=== PATIENT | female | born 1940 | race Caucasian/White ===

== ENCOUNTER 2016-10-08 14:48 | Inpatient (IN) ==
[2016-10-08] MEDS ORDERED: 0.9 % Sodium Chloride 500 ML IVC ONE ×2 (15:16→17:18)
--- NOTE | 2016-10-08 15:25 | Emergency Department Note ---
Disposition Clinical Impression: Small bowel perforation Disposition: Admitted As Inpatient Referrals: Nica Pryor, HIDE GRADER [Primary Care Provider] - Forms: Work/School Release, ED Satisfaction Letter Abdominal Pain HPI - General Chief Complaint: ED Abdominal Pain Stated Complaint: abdominal pain Time Seen by Provider: 10/08/16 15:06 Source: EMS Mode of arrival: EMS Nursing Notes Reviewed: Yes Vital Signs Reviewed: Yes - History of Present Illness Pt Subjective Complaint: abdominal pain Onset (ago): day(s) (1) Consistency: intermittent Location: L flank Pain Scale: 10 Quality: aching Radiation: none Migration to: no migration Improves with: nothing Worsens with: nothing Associated symptoms: Reports: hematuria Treatments prior to arrival: other (removed ramon catheter) - Related Data Allergies Allergy/AdvReac Type Severity Reaction Status Date / Time cephalexin [From Keflex] Allergy Hives Verified 10/08/16 14:56 sulfamethoxazole Allergy Hives Verified 10/08/16 14:56 [From Septra] trimethoprim [From Septra] Allergy Hives Verified 10/08/16 14:56 All systems ED: reviewed and negative except as stated. Constitutional: Denies: fever, chills, weakness Eyes: Denies: eye pain Cardiovascular: Denies: dyspnea on exertion Gastrointestinal: Reports: nausea, other (BM last night). Denies: diarrhea Abdominal Pain PMH - Past Medical History Medical history: Reports: arthritis, diabetes, hyperlipidemia, hypertension, renal disease, thyroid disease Female Surgical History: Reports: cholecystectomy Psychiatric history: Reports: no psych history - Social History Smoking status: Current every day smoker Alcohol use: Reports: none Drug use: Reports: none Physical Exam - General Limitations: no limitations General appearance: alert, other (uncomfortable) - Eye Eye exam: Present: normal appearance, PERRL, EOMI - ENT ENT exam: normal exam, normal oropharynx, mucous membranes moist - Neck Neck exam: Present: normal inspection, full ROM, trachea midline - Chest Chest inspection: Present: normal inspection, symmetric chest wall rise - Respiratory Respiratory exam: Present: normal lung sounds bilaterally - Cardiovascular Cardiovascular exam: Present: regular rate, normal rhythm, normal heart sounds - Abdominal Exam Abdominal exam: Present: distention, guarding Abdominal tenderness: Present: diffuse, severe - Neurological Exam Neurological exam: Present: alert, oriented X3 - Psychiatric Psychiatric exam: Present: normal affect, normal mood - Skin Skin exam: Present: warm, dry, intact, normal color Course Vital Signs Temperature 98.8 F 10/08/16 14:49 Pulse Rate 91 10/08/16 14:49 Respiratory Rate 16 10/08/16 14:49 Blood Pressure 151/65 10/08/16 14:49 O2 Sat by Pulse Oximetry 94 L 10/08/16 14:49 Temperature 98.8 F 10/08/16 14:49 Pulse Rate 86 10/08/16 16:34 Respiratory Rate 18 10/08/16 16:34 Blood Pressure 156/50 10/08/16 16:34 O2 Sat by Pulse Oximetry 98 10/08/16 16:34 Oxygen Delivery Oxygen Delivery Nasal Cannula Abdominal Pain - Differential Diagnosis Differential Diagnosis: Likely: abdominal pain non-specific, acute appendicitis , calculus of kidney, constipation, diverticulitis, gastroenteritis, pancreatitis, small bowel obstruction - Medical Records Medical records reviewed: Yes I reviewed the patient's medical records. - Lab Data Lab results reviewed: Yes I reviewed the patient's lab results. Result diagrams: 10/08/16 15:54 10/08/16 15:54 Lab Results 10/08/16 10/08/16 10/08/16 Range/Units 15:16 15:54 15:54 WBC 18.1 H (4.3-11.1) K/mcL RBC 3.51 L (3.82-4.97) M/mcL Hgb 10.1 L (11.5-15.4) g/dL Hct 32.1 L (35.3-44.9) % MCV 91.5 (83.0-100.0) fL MCH 28.8 (28.0-33.3) pg MCHC 31.5 L (31.6-35.5) g/dL RDW 14.6 H (11.5-14.5) % Plt Count 233 (140-400) K/mcL MPV 12.0 (9.4-12.4) fL Immature Gran % 0.7 (0-4) % Seg Neutrophils % 87.4 % Lymphocytes % 8.3 % Monocytes % 3.2 % Eosinophils % 0.2 % Basophils % 0.2 % Neutrophils # 15.8 H (1.6-8.9) K/mcL Lymphocytes # 1.5 (0.6-4.6) K/mcL Monocytes # 0.6 (0.0-1.3) K/mcL Eosinophils # 0.0 (0.0-0.6) K/mcL Basophils # 0.0 (0.0-0.2) K/mcL Sodium 136 (136-145) mEq/L Potassium 4.7 H (3.5-4.5) mEq/L Chloride 100 (98-109) mEq/L Carbon Dioxide 26 (19-29) mEq/L BUN 42 H (7-20) mg/dL Creatinine 1.13 H (0.57-1.11) mg/dL Est GFR ( Amer) 57 L (> 60) Est GFR (Non-Af Amer) 47 L (> 60) BUN/Creatinine Ratio 37 H (6-26) Glucose 171 H (70-99) mg/dL Calculated Osmolality 297 (280-300) Lactic Acid (0.5-2.2) mmol/L Calcium 10.3 (8.6-10.8) mg/dL Total Bilirubin 0.2 (0.2-1.2) mg/dL Direct Bilirubin 0.2 (0.0-0.5) mg/dL Indirect Bilirubin 0.0 (0.0-1.2) mg/dL AST 15 (5-34) Units/L ALT 14 (0-55) Units/L Alkaline Phosphatase 57 (38-126) Units/L Serum Total Protein 7.5 (6.0-8.3) g/dL Albumin 2.5 L (3.5-5.0) g/dL Globulin 5.0 H (2.4-3.5) g/dL Albumin/Globulin Ratio 0.5 L (1.1-2.2) Amylase 77 (25-125) Units/L Lipase 35 (8-78) Units/L Urine Color Yellow (Yellow) Urine Clarity Cloudy A (Clear) Urine pH 5.0 (5.0-8.0) pH Units Ur Specific [place] 1.019 (1.010-1.025) Urine Protein 30 H (Neg-Trace) mg/dL Urine Glucose (UA) Normal (Normal) mg/dL Urine Ketones Negative (Negative) mg/dL Urine Blood Large H (Negative) Urine Nitrite Positive A (Negative) Urine Bilirubin Negative (Negative) Urine Urobilinogen Normal (Normal) mg/dL Ur Leukocyte Esterase Moderate H (Negative) Urine Microscopic RBC 50-100 H (0-3) per hpf Urine Microscopic WBC 50-100 H (0-3) per hpf Ur Squamous Epith Cells Moderate H (None-Few) per lpf Urine Bacteria Moderate H (None-Few) per hpf Hyaline Casts None Seen (None-Few) per lpf Ur Culture Indicated? YES A (NO) Specimen Rejected 10/08/16 10/08/16 Range/Units 15:54 17:01 WBC (4.3-11.1) K/mcL RBC (3.82-4.97) M/mcL Hgb (11.5-15.4) g/dL Hct (35.3-44.9) % MCV (83.0-100.0) fL MCH (28.0-33.3) pg MCHC (31.6-35.5) g/dL RDW (11.5-14.5) % Plt Count (140-400) K/mcL MPV (9.4-12.4) fL Immature Gran % (0-4) % Seg Neutrophils % % Lymphocytes % % Monocytes % % Eosinophils % % Basophils % % Neutrophils # (1.6-8.9) K/mcL Lymphocytes # (0.6-4.6) K/mcL Monocytes # (0.0-1.3) K/mcL Eosinophils # (0.0-0.6) K/mcL Basophils # (0.0-0.2) K/mcL Sodium (136-145) mEq/L Potassium (3.5-4.5) mEq/L Chloride (98-109) mEq/L Carbon Dioxide (19-29) mEq/L BUN (7-20) mg/dL Creatinine (0.57-1.11) mg/dL Est GFR ( Amer) (> 60) Est GFR (Non-Af Amer) (> 60) BUN/Creatinine Ratio (6-26) Glucose (70-99) mg/dL Calculated Osmolality (280-300) Lactic Acid 1.6 (0.5-2.2) mmol/L Calcium (8.6-10.8) mg/dL Total Bilirubin (0.2-1.2) mg/dL Direct Bilirubin (0.0-0.5) mg/dL Indirect Bilirubin (0.0-1.2) mg/dL AST (5-34) Units/L ALT (0-55) Units/L Alkaline Phosphatase (38-126) Units/L Serum Total Protein (6.0-8.3) g/dL Albumin (3.5-5.0) g/dL Globulin (2.4-3.5) g/dL Albumin/Globulin Ratio (1.1-2.2) Amylase (25-125) Units/L Lipase (8-78) Units/L Urine Color (Yellow) Urine Clarity (Clear) Urine pH (5.0-8.0) pH Units Ur Specific [place] (1.010-1.025) Urine Protein (Neg-Trace) mg/dL Urine Glucose (UA) (Normal) mg/dL Urine Ketones (Negative) mg/dL Urine Blood (Negative) Urine Nitrite (Negative) Urine Bilirubin (Negative) Urine Urobilinogen (Normal) mg/dL Ur Leukocyte Esterase (Negative) Urine Microscopic RBC (0-3) per hpf Urine Microscopic WBC (0-3) per hpf Ur Squamous Epith Cells (None-Few) per lpf Urine Bacteria (None-Few) per hpf Hyaline Casts (None-Few) per lpf Ur Culture Indicated? (NO) Specimen Rejected Clotted - Radiology Data Radiology results reviewed: Yes I reviewed the patient's radiology results. Critical Care Time Critical Care Time: Yes Total Critical Care Time: 40 Attestation: Critical care performed: Time is exclusive of separately billable procedures. Time includes: direct patient care, patient reassessment, coordination of patient care, interpretation of data (laboratory data, radiology data, and respiratory data), review of patient's medical records, medical consultation and documentation of patient care. Procedures included in critical care time: Procedures excluded from critical care time:
[2016-10-08 15:28] LABS: Bilirubin,Urine Negative (Negative); Blood,Urine Large (Negative); Clarity,Urine Cloudy (Clear); Glucose,Urine (UA) Normal (Normal); Ketones,Urine Negative (Negative); Leukocyte Esterase,Urine Moderate (Negative); Nitrite,Urine Positive (Negative); Protein,Urine 30 mg/dL (Neg-Trace); Specific Gravity,Urine 1.019 (1.010-1.025); Urobilinogen,Urine Normal (Normal)
[2016-10-08 15:29] LABS: Bacteria,Urine Moderate per hpf (None-Few); Hyaline Casts,Urine None Seen per lpf (None-Few); RBC,Urine 50-100 per hpf (0-3); Squamous Epithelial Cell,Urine Moderate per lpf (None-Few); WBC,Urine 50-100 per hpf (0-3)
[2016-10-08 15:32] LABS: Color,Urine Yellow (Yellow)
[2016-10-08 16:16] LABS: Basophils % 0.2 %; Eosinophils % 0.2 %; Hematocrit 32.1 % (35.3-44.9); Hemoglobin 10.1 g/dL (11.5-15.4); Immature Granulocytes % 0.7 % (0-4); Lymphocytes # 1.5 K/mcL (0.6-4.6); Lymphocytes % 8.3 %; Mean Corpuscular HGB Conc 31.5 g/dL (31.6-35.5); Mean Corpuscular Hemoglobin 28.8 pg (28.0-33.3); Mean Corpuscular Volume 91.5 fL (83.0-100.0); Monocytes # 0.6 K/mcL (0.0-1.3); Monocytes % 3.2 %; Neutrophils # 15.8 K/mcL (1.6-8.9); Platelet Count 233 K/mcL (140-400); Red Blood Count 3.51 M/mcL (3.82-4.97); Red Cell Distribution Width 14.6 % (11.5-14.5); Segmented Neutrophils % 87.4 %
[2016-10-08] MEDS ORDERED: *HR* Morphine 2 MG/ML SYRINGE IV ONE (16:19)
[2016-10-08] MEDS ORDERED: Ondansetron 4 MG/2 ML VIAL IV ONE (16:19)
[2016-10-08] MEDS ORDERED: Piperacillin/Tazobactam 3.375 GM in D5% in Water (Mini-Bag+) 100 ML IVPB ONE (16:19)
[2016-10-08 16:29] LABS: Albumin 2.5 g/dL (3.5-5.0); Albumin/Globulin Ratio 0.5 (1.1-2.2); Bilirubin,Direct 0.2 mg/dL (0.0-0.5); Bilirubin,Total 0.2 mg/dL (0.2-1.2); Calcium 10.3 mg/dL (8.6-10.8); Potassium 4.7 mEq/L (3.5-4.5); Total Protein 7.5 g/dL (6.0-8.3)
--- NOTE | 2016-10-08 17:25 | General Surg History&Physical ---
Date of Encounter: 10/08/16 Time of Encounter: 17:25 Assessment and Plan (1) Free intraperitoneal air Current Visit: Yes Status: Acute The assessment and plan as outlined above was discussed with the patient and/or family members who expressed understanding and agreement. All questions were answered. 1. Free air discussed with patient CT results and imaging, she likely either has a small bowel perforation or a perforated colon. Discussed exploratory laparotomy possible ostomy with patient, risks and benefits of surgery including and she wishes to proceed. I called and spoke with patients son, Eduardo, regarding her current condition and our surgical plans. Discussed the possibility of remaining intubated post-operatively and going to ICU. npo ivf pain control ramon already in place gi/dvt prophylaxis (2) Perforated viscus Current Visit: Yes Status: Acute The assessment and plan as outlined above was discussed with the patient and/or family members who expressed understanding and agreement. All questions were answered. (3) HTN (hypertension) Current Visit: Yes Status: Acute The assessment and plan as outlined above was discussed with the patient and/or family members who expressed understanding and agreement. All questions were answered. holding home medication, will see what stability is like postop and treat accordingly Qualifiers: Hypertension type: essential hypertension Qualified Code(s): I10 - Essential (primary) hypertension (4) Diabetes Current Visit: Yes Status: Acute The assessment and plan as outlined above was discussed with the patient and/or family members who expressed understanding and agreement. All questions were answered. 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 All questions were answered. will start IV synthroid tomorrow Qualifiers: Hypothyroidism type: unspecified Qualified Code(s): E03.9 - Hypothyroidism , unspecified (6) Ventral hernia Current Visit: Yes Status: Acute The assessment and plan as outlined above was discussed with the patient and/or family members who expressed understanding and agreement. All questions were answered. patient with a large 8 x 5 cm ventral hernia, will see if we can primarily close and wound vac during surgery Qualifiers: Obstruction and gangrene presence: without obstruction or gangrene Qualified Code(s): K43.9 - Ventral hernia without obstruction or gangrene (7) Leukocytosis Current Visit: Yes Status: Acute The assessment and plan as outlined above was discussed with the patient and/or family members who expressed understanding and agreement. All questions were answered. zosyn received in ER, will continue ab Qualifiers: Leukocytosis type: unspecified Qualified Code(s): D72.829 - Elevated white blood cell count, unspecified History of Present Illness Chief complaint: abdominal pain HPI: Ms. Covarrubias is a 76 year old female who comes in today with complaints of abdominal pain less than 24 hours in duration. The pain began last night in the left lower quadrant and she described it as a stabbing pain. Since then the pain has located primarily in her mid abdomen and left upper quadrant on the left side. She denies any nausea or vomiting. She has had no recent fevers chills or night sweats. Her last bowel movement was last night and states she has not passed gas since then. She feels very distended. She denies any previous episodes of diverticulitis. She has never had a colonoscopy. She denies any family history colon cancer. She states her mother did have ovarian cancer. She is currently at a rehabilitation facility due to an inability to ambulate that manifested within the last few weeks according to her. Past Med Surg Social Fam HX - Past Medical History Source: patient Medical history: arthritis, diabetes, hyperlipidemia, hypertension, renal disease, thyroid disease Psychiatric history: no psych history - Past Surgical History Surgical History: cholecystectomy (open) - Social History Smoking Status: Current every day smoker Alcohol use: none Drug use: none Medications and Allergies Ascorbate Calcium [Vitamin C] 500 mg PO DAILY 10/08/16 [History] Chlorzoxazone 500 mg PO TID 10/08/16 [History] Doxazosin [Cardura] 8 mg PO DAILY 10/08/16 [History] Folic Acid/Vit Bcomp,C [Dialyvite Tablet] 1 tab PO DAILY 10/08/16 [History] Gabapentin [Neurontin] 600 mg PO TID 10/08/16 [History] Glucosamn/Condroitn/C/Mn/[place] [Cvs Glucosamine Chondroit Cplt] 1 tab PO DAILY 10/08/16 [History] HYDROcodone/Acet 5/325 mg [[place] 5-325 mg] 1 tab PO Q4H PRN 10/08/16 [History] Levothyroxine [Synthroid] 100 mcg PO DAILY 10/08/16 [History] Lisinopril-HCTZ 20-12.5 [Prinzide 20-12.5] 1 tab PO DAILY 10/08/16 [History] Lysine [l-Lysine] 1,000 mg PO DAILY 10/08/16 [History] Meloxicam [Mobic] 7.5 mg PO BID 10/08/16 [History] Metformin [Glucophage] 500 mg PO BID 10/08/16 [History] Nystatin POWDER [Nystop] 1 appl TP BID 10/08/16 [History] Silver Sulfadiazine Cream [Silvadene] 1 appl TP AD 10/08/16 [History] Allergies cephalexin [From Keflex] Allergy (Verified 10/08/16 14:56) Hives sulfamethoxazole [From Septra] Allergy (Verified 10/08/16 14:56) Hives trimethoprim [From Septra] Allergy (Verified 10/08/16 14:56) Hives Review of Systems All systems PM: reviewed and no additional remarkable complaints except as stated All systems PM: A 10-system review of systems was performed and is negative for pertinent findings except as documented above in the HPI. General Surgery Exam Initial Vital Signs Temp Pulse Resp BP Pulse Ox 98.8 F 91 16 151/65 94 L 10/08/16 14:49 10/08/16 14:49 10/08/16 14:49 10/08/16 14:49 10/08/16 14:49 - General physical appearance well developed, well nourished, moderate distress, obese - Eyes PERRL, normal ocular movement - ENT normal mucosa, normocephalic - Neck trachea midline - Respiratory other (increased WOB, clear bilaterally) - Cardiovascular Cardiovascular exam: Present: RRR, murmurs - Abdomen Abdomen general surgery: Present: tympanic, distended, tender, surgical scars. Absent: bowel sounds present, guarding, rebound Abdominal Tenderness: Present: LUQ, LLQ - Integumentary Integumentary general surgery: Present: warm and dry, no abnormal pigmentation - Neurologic Present: CN 2-12 grossly intact - Musculoskeletal Present: normal posture - Psychiatric Psychiatric general surgery: Present: A&Ox3, speech is normal Results - Labs 10/08/16 15:54 10/08/16 15:54 Short CBC 10/08/16 Range/Units 15:54 WBC 18.1 H (4.3-11.1) K/mcL Hgb 10.1 L (11.5-15.4) g/dL Hct 32.1 L (35.3-44.9) % Plt Count 233 (140-400) K/mcL Neutrophils # 15.8 H (1.6-8.9) K/mcL BMP 10/08/16 Range/Units 15:54 Sodium 136 (136-145) mEq/L Potassium 4.7 H (3.5-4.5) mEq/L Chloride 100 (98-109) mEq/L Carbon Dioxide 26 (19-29) mEq/L BUN 42 H (7-20) mg/dL Creatinine 1.13 H (0.57-1.11) mg/dL Glucose 171 H (70-99) mg/dL Calcium 10.3 (8.6-10.8) mg/dL Liver Function 10/08/16 Range/Units 15:54 Total Bilirubin 0.2 (0.2-1.2) mg/dL Direct Bilirubin 0.2 (0.0-0.5) mg/dL AST 15 (5-34) Units/L ALT 14 (0-55) Units/L Alkaline Phosphatase 57 (38-126) Units/L Albumin 2.5 L (3.5-5.0) g/dL Urine 10/08/16 Range/Units 15:16 Urine Color Yellow (Yellow) Urine Clarity Cloudy A (Clear) Urine pH 5.0 (5.0-8.0) pH Units Ur Specific [place] 1.019 (1.010-1.025) Urine Protein 30 H (Neg-Trace) mg/dL Urine Glucose (UA) Normal (Normal) mg/dL Vital Signs Temp Pulse Resp BP Pulse Ox 10/08/16 16:34 86 18 156/50 98 10/08/16 15:53 86 20 143/86 93 L 10/08/16 14:49 98.8 F 91 16 151/65 94 L Intake and Output 10/08/16 10/08/16 10/08/16 07:59 15:59 23:59 Intake Total 500 / 500 Balance 500 / 500 Intake: IV Fluids 500 / 500 0.9 % Sodium Chloride 500 500 / 500 ML @ 3750 mls/hr IVC . Q8M ONE Rx#:[id number] Other: Weight 101.605 kg Patient Weight 10/08/16 23:59 Weight 101.605 kg - Imaging CT scan - abdomen: report reviewed, image reviewed CT scan - pelvis: report reviewed, image reviewed
--- NOTE | 2016-10-08 17:28 | General Surg History&Physical ---
Date of Encounter: 10/08/16 Time of Encounter: 17:10 History of Present Illness Chief complaint: abdominal pain HPI: Ms. Covarrubias is a 76 year old female with PMH of diabetes, hypothyroidism, and hypertension presented to the emergency department for abdominal pain that started last night. She reports that currently she is living in a long-term to try to strengthen her legs after having a previous injury years ago. She states that her pain started in the left lower quadrant and was stabbing in nature. The pain now spread to being epigastric as well.She denies nausea, vomiting, fevers, chills, and night sweats. Her last bowel movement was last night, but she denies passing any gas since then. She reports feeling as if her abdomen is distended. She denies history of diverticulitis, but states she has never had a colonoscopy. She denies family history of colon cancer. Past Med Surg Social Fam HX - Past Medical History Medical history: arthritis, diabetes, hyperlipidemia, hypertension, renal disease, thyroid disease Psychiatric history: no psych history - Past Surgical History Surgical History: cholecystectomy (1974) - Social History Smoking Status: Current every day smoker Alcohol use: none Drug use: none - Family History Maternal Hx Family Cancer: Yes (ovarian and breast) Medications and Allergies Allergies cephalexin [From Keflex] Allergy (Verified 10/08/16 14:56) Hives sulfamethoxazole [From Septra] Allergy (Verified 10/08/16 14:56) Hives trimethoprim [From Septra] Allergy (Verified 10/08/16 14:56) Hives Review of Systems All systems PM: A 10-system review of systems was performed and is negative for pertinent findings except as documented above in the HPI. - Constitutional no chills, no fever(s), no night sweats - Cardiovascular no dyspnea on exertion - Gastrointestinal abdominal pain, bloating, no diarrhea, no melena, no nausea, no vomiting - Neurological numbness (hands), paresthesias (hands), weakness (lower extremities) General Surgery Exam Initial Vital Signs Temp Pulse Resp BP Pulse Ox 98.8 F 91 16 151/65 94 L 10/08/16 14:49 10/08/16 14:49 10/08/16 14:49 10/08/16 14:49 10/08/16 14:49 - General physical appearance well developed, well nourished, other (mild distress) - Eyes normal ocular movement - ENT normal mucosa, normocephalic Results - Labs 10/08/16 15:54 10/08/16 15:54 Abnormal lab results WBC 18.1 K/mcL (4.3-11.1) H 10/08/16 15:54 RBC 3.51 M/mcL (3.82-4.97) L 10/08/16 15:54 Hgb 10.1 g/dL (11.5-15.4) L 10/08/16 15:54 Hct 32.1 % (35.3-44.9) L 10/08/16 15:54 MCHC 31.5 g/dL (31.6-35.5) L 10/08/16 15:54 RDW 14.6 % (11.5-14.5) H 10/08/16 15:54 Neutrophils # 15.8 K/mcL (1.6-8.9) H 10/08/16 15:54 Potassium 4.7 mEq/L (3.5-4.5) H 10/08/16 15:54 BUN 42 mg/dL (7-20) H 10/08/16 15:54 Creatinine 1.13 mg/dL (0.57-1.11) H 10/08/16 15:54 Est GFR ( Amer) 57 (> 60) L 10/08/16 15:54 Est GFR (Non-Af Amer) 47 (> 60) L 10/08/16 15:54 BUN/Creatinine Ratio 37 (6-26) H 10/08/16 15:54 Glucose 171 mg/dL (70-99) H 10/08/16 15:54 Albumin 2.5 g/dL (3.5-5.0) L 10/08/16 15:54 Globulin 5.0 g/dL (2.4-3.5) H 10/08/16 15:54 Albumin/Globulin Ratio 0.5 (1.1-2.2) L 10/08/16 15:54 Urine Clarity Cloudy (Clear) A 10/08/16 15:16 Urine Protein 30 mg/dL (Neg-Trace) H 10/08/16 15:16 Urine Blood Large (Negative) H 10/08/16 15:16 Urine Nitrite Positive (Negative) A 10/08/16 15:16 Ur Leukocyte Esterase Moderate (Negative) H 10/08/16 15:16 Urine Microscopic RBC 50-100 per hpf (0-3) H 10/08/16 15:16 Urine Microscopic WBC 50-100 per hpf (0-3) H 10/08/16 15:16 Ur Squamous Epith Cells Moderate per lpf (None-Few) H 10/08/16 15:16 Urine Bacteria Moderate per hpf (None-Few) H 10/08/16 15:16 Ur Culture Indicated? YES (NO) A 10/08/16 15:16 Diabetes panel 10/08/16 Range/Units 15:54 Sodium 136 (136-145) mEq/L Potassium 4.7 H (3.5-4.5) mEq/L Chloride 100 (98-109) mEq/L Carbon Dioxide 26 (19-29) mEq/L BUN 42 H (7-20) mg/dL Creatinine 1.13 H (0.57-1.11) mg/dL Glucose 171 H (70-99) mg/dL Calcium 10.3 (8.6-10.8) mg/dL AST 15 (5-34) Units/L ALT 14 (0-55) Units/L Alkaline Phosphatase 57 (38-126) Units/L Albumin 2.5 L (3.5-5.0) g/dL Calcium panel 10/08/16 Range/Units 15:54 Calcium 10.3 (8.6-10.8) mg/dL Albumin 2.5 L (3.5-5.0) g/dL Pituitary panel 10/08/16 Range/Units 15:54 Sodium 136 (136-145) mEq/L Potassium 4.7 H (3.5-4.5) mEq/L Chloride 100 (98-109) mEq/L Carbon Dioxide 26 (19-29) mEq/L BUN 42 H (7-20) mg/dL Creatinine 1.13 H (0.57-1.11) mg/dL Glucose 171 H (70-99) mg/dL Calcium 10.3 (8.6-10.8) mg/dL Adrenal panel 10/08/16 Range/Units 15:54 Sodium 136 (136-145) mEq/L Potassium 4.7 H (3.5-4.5) mEq/L Chloride 100 (98-109) mEq/L Carbon Dioxide 26 (19-29) mEq/L BUN 42 H (7-20) mg/dL Creatinine 1.13 H (0.57-1.11) mg/dL Glucose 171 H (70-99) mg/dL Calcium 10.3 (8.6-10.8) mg/dL Total Bilirubin 0.2 (0.2-1.2) mg/dL AST 15 (5-34) Units/L ALT 14 (0-55) Units/L Alkaline Phosphatase 57 (38-126) Units/L Albumin 2.5 L (3.5-5.0) g/dL All other labs normal.
[2016-10-08 17:47] LABS: INR 1.3; Prothrombin Time 13.6 Seconds (9.4-12.1)
[2016-10-08 17:50] LABS: Activated Partial Thrombo Time 29.2 Seconds (26.0-36.0)
--- NOTE | 2016-10-08 17:57 | Anesthesia Evaluation PreOp ---
Date of Encounter: 10/08/16 Time of Encounter: 18:00 - Past History Planned Operation: Exploratory Lap possible Ostomy Cardiac History: HTN, Hyperlipidemia Pulmonary History: Denies Any Significant HX LEGAL RECRUITER History: Denies Any Significant HX Other Medical History: Diabetes Type II, Thyroid, Other (Morbid Obesity) Anesthesia History: No Prior Anesthetic Complications Alcohol Use: none Drug use: none Medications and Allergies Ascorbate Calcium [Vitamin C] 500 mg PO DAILY 10/08/16 [History] Chlorzoxazone 500 mg PO TID 10/08/16 [History] Doxazosin [Cardura] 8 mg PO DAILY 10/08/16 [History] Folic Acid/Vit Bcomp,C [Dialyvite Tablet] 1 tab PO DAILY 10/08/16 [History] Gabapentin [Neurontin] 600 mg PO TID 10/08/16 [History] Glucosamn/[place]roitn/C/Mn/[place] [Cvs Glucosamine Chondroit Cplt] 1 tab PO DAILY 10/08/16 [History] HYDROcodone/Acet 5/325 mg [Enders 5-325 mg] 1 tab PO Q4H PRN 10/08/16 [History] Levothyroxine [Synthroid] 100 mcg PO DAILY 10/08/16 [History] Lisinopril-HCTZ 20-12.5 [Prinzide 20-12.5] 1 tab PO DAILY 10/08/16 [History] Lysine [l-Lysine] 1,000 mg PO DAILY 10/08/16 [History] Meloxicam [Mobic] 7.5 mg PO BID 10/08/16 [History] Metformin [Glucophage] 500 mg PO BID 10/08/16 [History] Nystatin POWDER [Nystop] 1 appl TP BID 10/08/16 [History] Silver Sulfadiazine Cream [Silvadene] 1 appl TP AD 10/08/16 [History] Allergies cephalexin [From Keflex] Allergy (Verified 10/08/16 14:56) Hives sulfamethoxazole [From Septra] Allergy (Verified 10/08/16 14:56) Hives trimethoprim [From Septra] Allergy (Verified 10/08/16 14:56) Hives - Meds/Allergy Pre-op Review Medications Reviewed: Yes Allergies Reviewed: Yes Beta Blockers on Current Med List: No Anesthesia Results - Labs 10/08/16 15:54 10/08/16 15:54 - Imaging EKG: pending Anesthesia Exam O2 Sat Height 1.57 m Weight 101.605 kg O2 Sat by Pulse Oximetry 95 O2 Sat by Pulse Oximetry 98 O2 Sat by Pulse Oximetry 93 O2 Sat by Pulse Oximetry 94 Vital Signs Temp Pulse Resp BP Pulse Ox 98.8 F 91 16 151/65 94 L 10/08/16 14:49 10/08/16 14:49 10/08/16 14:49 10/08/16 14:49 10/08/16 14:49 Height: 5'2 Weight: 224 lbs NPO (# of Hours): MN Pain Scale: 6 - HEENT Pupil (Motor): Pupils equal, EOMI Mallampati: III Teeth: Missing Oral Opening: Less than or equal to 3 - LEGAL RECRUITER LOC: Oriented LEGAL RECRUITER Motor: Normal RUE, Normal LUE, Normal RLE, Normal LLE, Normal Face LEGAL RECRUITER Sensory: Normal: RUE, LUE, RLE, LLE, Face - Cardiac Rhythm: Regular Murmur: None JVD: No Carotid Bruit: No - Pulmonary Breath Sounds: bilateral Clear Respiratory Effort: Symmetrical Anesthesia Assess/Plan ASA Score: 3 (MO HTN DM Hypothyroid) Modified Vic Scale for Level of Consciousness: Cooperative, oriented, and tranquil Anesthetic Plan: General Monitoring Plan: Standard Monitors Recovery Plan: PACU (Discussed GA, agrees to proceed)
[2016-10-08] MEDS ORDERED: *HR* FentaNYL (PF) 100 MCG/2 ML VIAL ONE (18:06)
[2016-10-08] MEDS ORDERED: *HR* Propofol 200 MG/20 ML VIAL IVP ONE (18:07)
[2016-10-08] MEDS ORDERED: *HR* Succinylcholine 200 MG/10 ML VIAL IVP ONE (18:07)
[2016-10-08] MEDS ORDERED: *HR* Rocuronium Bromide 50 MG/5 ML VIAL ONE ×2 (18:07→19:46)
[2016-10-08] MEDS ORDERED: Ondansetron 4 MG/2 ML VIAL ONE (18:07)
[2016-10-08] MEDS ORDERED: Lidocaine -MPF 2% 2 ML VIAL ONE (18:07)
[2016-10-08] MEDS ORDERED: *HR* Phenylephrine 10 MG/ML VIAL ONE (18:35)
[2016-10-08] MEDS ORDERED: Acetaminophen IV 1,000 MG/100 ML INFUS..BTL ONE (19:11)
[2016-10-08] MEDS ORDERED: Fluconazole 200 MG/100 ML 200 MG/100 ML BAG IVPB SCH (19:15)
[2016-10-08] MEDS ORDERED: Neostigmine Methylsulfate 3 MG/3 ML SYRINGE ONE (20:11)
[2016-10-08] MEDS ORDERED: *HR* HYDROmorphone 2 MG/ML SYRINGE ONE ×2 (20:20→20:21)
[2016-10-08] MEDS ORDERED: *HR* Midazolam HCl 2 MG/2 ML VIAL ONE (20:26)
--- NOTE | 2016-10-08 20:33 | Operative Note ---
Date of procedure: 10/08/16 Pre-op diagnosis: Free air Post-op diagnosis: other (gastric perforation, ventral hernia) Procedure: Exploratory laparotomy, gastric perforation wedge resection, ventral hernia repair, placement of wound vac Complications: none immediate Anesthesia: DEANA Surgeon: Piper Ware Surgical Scrub Technician Other: Efren Gonzalez Estimated blood loss (cc): 25 IV fluids (cc): 3,300 Urine output (cc): 400 Specimen: see op note Condition: stable Disposition: ICU Procedure in Detail: specimens: gastric wedge resection, omentum, aerobic and anaerobic specimens, epiploic nodules wound vac measurements: 26 cm L x 6 cm W x 4 cm D Procedure: She was brought into the operating suite and placed supine on the operating table. Sign in was performed and everyone was in agreement. Anesthesia was induced and patient was endotracheally intubated by anesthesia without incident. She had previously had a De La O catheter placed. Anesthesia placed a nasogastric tube. The abdomen was prepped and draped in the usual sterile fashion. Timeout was performed again everyone was in agreement. A midline incision through the skin into the subcutaneous tissue was made with a 15 blade. We entered the hernia sac with the Bovie. The midline fascia was opened proximally and distally with the Bovie. Omental adhesions to the anterior abdominal wall were taken down with Metzenbaum scissors and Bovie cautery. The small bowel was run from the ligament of Treitz down to the terminal ileum. Lysis of adhesions was accomplished with Metzenbaum scissors freeing up small bowel to small bowel adhesions. There was no obvious succus or fluid within the small bowel loops. The colon was run from the cecum to the transverse colon which was very redundant down to very redundant left colon and sigmoid into the pelvis the rectum was evaluated. There was no obvious inflammation. There was no obvious succus coming from anywhere. There was a small amount of purulent fluid within the pelvis. We then turned our attention to the stomach and there was obvious fibrinous material. The proximal omentum at the greater curvature of the stomach. The anterior stomach was evaluated and there was no obvious perforation. The duodenum was evaluated and there was no obvious anterior perforation. Opening the omentum just beneath the stomach we entered the lesser sac. There was a gastric perforation the posterior stomach wall at the greater curvature along with purulent fluid and gastric drainage. Approximately 2-3 cm distal this area was another area of stomach that appeared to be necrotic. Using the impact LigaSure we opened the omentum to the gastric wall proximally and distally to the gastric perforation. The NG tube was to be palpated in an appropriate position within the stomach and was pushed out of the way towards the lesser curvature. A TL 90 stapler was then placed across the greater omentum including the gastric perforation and this other area of necrosis. The gastric wedge resection then was cut away with a 10 blade. The stomach was then Lemberted over the staple line with 2-0 silk Lembert stitches. The upper abdomen was copiously irrigated with sterile saline. A stab incision in the right upper quadrant was made with a 15 blade and A 10 mm AP drain was placed through this incision with the drain placed beneath the gastric wedge resection staple line. The drain was sutured to the skin with a 2-0 silk stitch. The abdomen was then copiously irrigated with sterile saline. Trochars are placed on either side of the fascia for retraction. The hernia sac was then excised with the Bovie. The midline fascia was reapproximated with 2 separate #1 nylon looped PDS running stitches meeting in the middle. The subcutaneous tissue was irrigated with sterile saline. The umbilicus was tacked back down to the fascia with a 3-0 Vicryl [id number] stitch. The skin around the umbilicus was reapproximated subcutaneously with 3-0 Vicryl interrupted stitches and ignacio were used to close the skin around the umbilicus. A wound VAC was then applied to the wound using black foam, the VAC was set to 125 mmHg continuous suction. A drain sponge was used at the FREDY drain site. All lap and instrument counts were correct at the end of the case. The patient tolerated the procedure well. She was taken to the ICU in stable condition and intubated. The NG tube and De La O catheter remained at the end of the case.
[2016-10-08] MEDS ORDERED: D5% in Water 1,000 ML IV PRN (21:00)
[2016-10-08] MEDS ORDERED: Dextrose Gel 15 GM PO PRN ×2 (21:00)
[2016-10-08] MEDS ORDERED: Lacri-Lube 3.5 GM TUBE BOTH EYES PRN (21:00)
[2016-10-08] MEDS ORDERED: Ondansetron 4 MG/2 ML VIAL IVP PRN (21:00)
[2016-10-08] MEDS ORDERED: *HR* Dextrose 50 % in Water (Syg) 50 ML SYRINGE IVP PRN (21:00)
[2016-10-08] MEDS ORDERED: Naloxone 0.4 MG/ML INJ IVP PRN (21:00)
[2016-10-08] MEDS ORDERED: *HR* Metoprolol 5 MG/5 ML VIAL IVP PRN (21:00)
[2016-10-08] MEDS: FentaNYL (PF) 1,000 MCG in 0.9 % Sodium Chloride 80 ML IVC SCH (21:38)
[2016-10-08 21:54] LABS: ABG Base Excess -1.9 mEq/L (-2.0 to 3.0); ABG HCO3 24.6 mEQ/L (21-27); ABG Oxygen Saturation 96 % (95-98); ABG PCO2 50 mmHg (35-45); ABG PO2 91 mmHg (85-104); ABG TCO2 26.1 mEq/L (20-26); Blood Gas FiO2 50 %
[2016-10-08] MEDS: Ipratropium/Albuterol Neb 3 ML IH SCH (21:59)
[2016-10-08 22:01] LABS: Hemoglobin A1C 5.7 %
[2016-10-08] MEDS: Pantoprazole 40 MG VIAL IVP SCH (22:10)
[2016-10-08] MEDS: Chlorhexidine Rinse 15 ML MOUTHWASH MM SCH (22:10)
[2016-10-08] MEDS: 0.9 % Sodium Chloride 1,000 ML IVC SCH (22:11)
[2016-10-08] MEDS: Piperacillin/Tazobactam 3.375 GM in D5% in Water (Mini-Bag+) 100 ML IVPB SCH (23:55)
[2016-10-09] MEDS: Insulin LISPRO 300 UNITS/3 ML VIAL SQ SCH ×5 (00:13→23:26)
[2016-10-09] MEDS: Lacri-Lube 3.5 GM TUBE BOTH EYES SCH ×7 (00:25→23:27)
[2016-10-09] MEDS: Ipratropium/Albuterol Neb 3 ML IH SCH ×4 (03:57→22:22)
[2016-10-09 04:04] LABS: Basophils % 0.2 %; Eosinophils % 0.1 %; Hematocrit 27.3 % (35.3-44.9); Hemoglobin 8.5 g/dL (11.5-15.4); Lymphocytes # 1.4 K/mcL (0.6-4.6); Lymphocytes % 7.5 %; Mean Corpuscular HGB Conc 31.1 g/dL (31.6-35.5); Mean Corpuscular Hemoglobin 28.5 pg (28.0-33.3); Mean Corpuscular Volume 91.6 fL (83.0-100.0); Mean Platelet Volume 11.5 fL (9.4-12.4); Monocytes # 0.7 K/mcL (0.0-1.3); Monocytes % 3.6 %; Neutrophils # 16.4 K/mcL (1.6-8.9); Platelet Count 239 K/mcL (140-400); Red Blood Count 2.98 M/mcL (3.82-4.97); Red Cell Distribution Width 14.6 % (11.5-14.5); Segmented Neutrophils % 87.6 %
[2016-10-09 04:17] LABS: BUN/Creatinine Ratio 37 (6-26); Blood Urea Nitrogen 39 mg/dL (7-20); Carbon Dioxide 21 mEq/L (19-29); Chloride 107 mEq/L (98-109); Glucose 153 mg/dL (70-99); Magnesium 1.2 mg/dL (1.6-2.6); Osmolality,Calculated 292 (280-300); Phosphorous 3.8 mg/dL (2.3-4.7); Sodium 135 mEq/L (136-145); eGFR For African Americans > 60 (> 60); eGFR For Non-African Americans 51 (> 60)
[2016-10-09 04:21] LABS: Calcium 8.6 mg/dL (8.6-10.8)
[2016-10-09] MEDS: 0.9 % Sodium Chloride 1,000 ML IVC SCH ×3 (06:00→20:44)
[2016-10-09] MEDS: FentaNYL (PF) 1,000 MCG in 0.9 % Sodium Chloride 80 ML IVC SCH (06:20)
[2016-10-09 06:29] LABS: ABG Base Excess -0.4 mEq/L (-2.0 to 3.0); ABG HCO3 24.1 mEQ/L (21-27); ABG Oxygen Saturation 98 % (95-98); ABG PCO2 38 mmHg (35-45); ABG PH 7.41 pH Units (7.32-7.45); ABG PO2 110 mmHg (85-104); ABG TCO2 25.3 mEq/L (20-26); Blood Gas FiO2 50 %
[2016-10-09] MEDS: Piperacillin/Tazobactam 3.375 GM in D5% in Water (Mini-Bag+) 100 ML IVPB SCH ×3 (07:37→23:23)
[2016-10-09] MEDS: Pantoprazole 40 MG VIAL IVP SCH ×2 (08:10→20:42)
[2016-10-09] MEDS: Chlorhexidine Rinse 15 ML MOUTHWASH MM SCH ×2 (08:10→20:41)
[2016-10-09] MEDS: Levothyroxine Sodium 100 MCG VIAL IVP SCH (08:10)
[2016-10-09] MEDS ORDERED: Magnesium Sulfate 2 GM in D5% in Water 100 ML IVPB ONE (08:18)
--- NOTE | 2016-10-09 08:36 | General Surgery Progress Note ---
<Mike Gary - Last Filed: 10/09/16 08:34> Date of Encounter: 10/09/16 Time of Encounter: 07:30 - Assessment and Plan (1) Free intraperitoneal air Current Visit: Yes Status: Resolved Post op day #1 status post exploratory laparotomy, gastric perforation wedge resection, ventral hernia repair, and placement of wound vac. The patient remains intubated at this time and is oxygenating well. Nasogastric tube in place. Consider extubation today. Negative bowel sounds. Await for return of bowel function. NPO. Continue IV fluids. Continue GI and DVT prophylaxis. (2) Perforated viscus Current Visit: Yes Status: Resolved Gastric perforation the posterior stomach wall at the greater curvature along with purulent fluid and gastric drainage. Approximately 2-3 cm distal this area was another area of stomach that appeared to be necrotic. Post op day #1 status post exploratory laparotomy, gastric perforation wedge resection, ventral hernia repair, and placement of wound vac. (3) Diabetes Current Visit: Yes Status: Acute Hold home medications. Continue to monitor and control with low-dose SSI. Qualifiers: Diabetes mellitus type: type 2 Diabetes mellitus complication status: with unspecified complications Diabetes mellitus cooling pipe inspector insulin use: without cooling pipe inspector use Qualified Code(s): E11.8 - Type 2 diabetes mellitus with unspecified complications (4) HTN (hypertension) Current Visit: Yes Status: Acute Well controlled at this time. Continue to monitor. Qualifiers: Hypertension type: essential hypertension Qualified Code(s): I10 - Essential (primary) hypertension (5) Hypothyroid Current Visit: Yes Status: Acute Begin IV syntroid today. Qualifiers: Hypothyroidism type: unspecified Qualified Code(s): E03.9 - Hypothyroidism , unspecified (6) Leukocytosis Current Visit: Yes Status: Acute Continue Zosyn Day #2 Qualifiers: Leukocytosis type: unspecified Qualified Code(s): D72.829 - Elevated white blood cell count, unspecified (7) Ventral hernia Current Visit: Yes Status: Resolved Post op day #1 status post exploratory laparotomy, gastric perforation wedge resection, ventral hernia repair, and placement of wound vac. Qualifiers: Obstruction and gangrene presence: without obstruction or gangrene Qualified Code(s): K43.9 - Ventral hernia without obstruction or gangrene Subjective Narrative: Patient is on a ventilator and unable to answer questions at this time. She opens her eyes to hearing her name. Objective Vital Signs - Last 8 Hours Temp Pulse Resp BP Pulse Ox 10/09/16 08:22 12 122/46 96 10/09/16 07:40 80 10/09/16 07:31 99.3 F 80 16 113/44 97 10/09/16 06:35 17 95/36 97 10/09/16 06:00 80 12 115/49 100 10/09/16 05:00 87 12 115/59 97 10/09/16 04:00 100.1 F H 79 12 101/42 97 10/09/16 03:57 15 94/39 96 10/09/16 03:00 79 12 100/53 95 10/09/16 02:00 75 12 87/36 94 L 10/09/16 01:52 12 79/34 95 10/09/16 01:00 74 12 94/38 96 Intake and Output 10/08/16 10/09/16 10/09/16 23:59 07:59 15:59 Intake Total 100 / 600 2421 / 2421 Output Total 425 / 425 560 / 560 Balance -325 / 175 1861 / 186 Intake: IV Fluids 100 / 100 1200 / 1200 0.9 % Sodium Chloride 1, 1000 / 1000 000 ML @ 125 mls/hr IVC . Q8H [facility] Rx#:[id number] FentaNYL (PF) 1,000 MCG 100 / 100 In 0.9 % Sodium Chloride 80 ML @ 50 MCG/HR 5 mls/ hr IVC CONT [facility] Rx#: [id number] Diflucan 200 MG/100 ML 100 / 100 200 mg In 100 ml @ 100 mls/hr IVPB DAILY [facility] Rx# :[id number] Zosyn 3.375 GM In 100 / 100 Dextrose 5% (Minibag+) 100 ML 100 ML @ 25 mls/hr IVPB Q8HR [facility] Rx#: [id number] Oral 0 / 0 Other 1221 / 1221 Output: Estimated Blood Loss 25 / 25 Urine Amount (Catheter) 400 / 400 Catheter 425 / 425 Wound Drainage 135 / 135 Abdomen 135 / 135 Other: Weight 111.584 kg Blood Glucose* 165 213 - General physical appearance well developed, well nourished, no distress - Eyes normal ocular movement - Neck Neck exam: trachea midline - Respiratory clear to auscultation, other (patient is on a ventillator) - Cardiovascular Cardiovascular exam: Present: RRR, murmurs - Abdomen Abdomen: Present: soft. Absent: bowel sounds present - Incision Incision: Present: clean and dry, intact, open (wound vac in place with serosanguineous drainage) - Integumentary no rash - Neurologic other (unable to assess at this time) - Psychiatric other (unable to assess at this time.) - Labs 10/09/16 03:29 10/09/16 03:29 Diabetes panel 10/09/16 Range/Units 03:29 Sodium 135 L (136-145) mEq/L Potassium 5.0 H (3.5-4.5) mEq/L Chloride 107 (98-109) mEq/L Carbon Dioxide 21 (19-29) mEq/L BUN 39 H (7-20) mg/dL Creatinine 1.06 (0.57-1.11) mg/dL Glucose 153 H (70-99) mg/dL Calcium 8.6 D (8.6-10.8) mg/dL Calcium panel 10/09/16 Range/Units 03:29 Calcium 8.6 D (8.6-10.8) mg/dL Phosphorus 3.8 (2.3-4.7) mg/dL Pituitary panel 10/09/16 Range/Units 03:29 Sodium 135 L (136-145) mEq/L Potassium 5.0 H (3.5-4.5) mEq/L Chloride 107 (98-109) mEq/L Carbon Dioxide 21 (19-29) mEq/L BUN 39 H (7-20) mg/dL Creatinine 1.06 (0.57-1.11) mg/dL Glucose 153 H (70-99) mg/dL Calcium 8.6 D (8.6-10.8) mg/dL Adrenal panel 10/09/16 Range/Units 03:29 Sodium 135 L (136-145) mEq/L Potassium 5.0 H (3.5-4.5) mEq/L Chloride 107 (98-109) mEq/L Carbon Dioxide 21 (19-29) mEq/L BUN 39 H (7-20) mg/dL Creatinine 1.06 (0.57-1.11) mg/dL Glucose 153 H (70-99) mg/dL Calcium 8.6 D (8.6-10.8) mg/dL - VTE Documentation of Mechanical Device: Intermittent pneumatic compression device Consult Discharge Plan - Plan Referrals: Nica Pryor, C D STRIPPER [Primary Care Provider] - - Attending Attestation I examined this patient and my medical decision-making was reviewed with the CANDY MAKER HELPER/PA/Advanced Practice Nurse/Resident Physician. I agree with the documented findings, disposition and treatment plan as described except to the extent set forth below. <ChazRustamPiper L - Last Filed: 10/09/16 09:46> Time of Encounter: 09:40 - Assessment and Plan (1) Free intraperitoneal air Current Visit: Yes Status: Resolved continue ngt drainage, npo, ivf hydration Cr improved, continue ramon for strict I/O's await return bowel function, continue wound vac will try to wean and extubate today (2) Perforated viscus Current Visit: Yes Status: Resolved (3) HTN (hypertension) Current Visit: Yes Status: Acute normotensive currently, holding home po meds will address as needed Qualifiers: Hypertension type: essential hypertension Qualified Code(s): I10 - Essential (primary) hypertension (4) Diabetes Current Visit: Yes Status: Acute elevated MBS, increase SSI to moderate coverage Qualifiers: Diabetes mellitus type: type 2 Diabetes mellitus complication status: with unspecified complications Diabetes mellitus cooling pipe inspector insulin use: without detention use Qualified Code(s): E11.8 - Type 2 diabetes mellitus with unspecified complications (5) Hypothyroid Current Visit: Yes Status: Acute Qualifiers: Hypothyroidism type: unspecified Qualified Code(s): E03.9 - Hypothyroidism , unspecified (6) Ventral hernia Current Visit: Yes Status: Resolved Qualifiers: Obstruction and gangrene presence: without obstruction or gangrene Qualified Code(s): K43.9 - Ventral hernia without obstruction or gangrene (7) Leukocytosis Current Visit: Yes Status: Acute leukocystosis, no bandemia, continue to trend continue zosyn and diflucan Qualifiers: Leukocytosis type: unspecified Qualified Code(s): D72.829 - Elevated white blood cell count, unspecified Subjective Narrative: patient sedated on vent, opens eyes to verbal and touch Objective Vital Signs - Last 8 Hours Temp Pulse Resp BP Pulse Ox 10/09/16 09:00 82 16 119/45 97 10/09/16 08:22 12 122/46 96 10/09/16 08:00 87 16 122/46 97 10/09/16 07:40 80 10/09/16 07:31 99.3 F 80 16 113/44 97 10/09/16 06:35 17 95/36 97 10/09/16 06:00 80 12 115/49 100 10/09/16 05:00 87 12 115/59 97 10/09/16 04:00 100.1 F H 79 12 101/42 97 10/09/16 03:57 15 94/39 96 10/09/16 03:00 79 12 100/53 95 10/09/16 02:00 75 12 87/36 94 L 10/09/16 01:52 12 79/34 95 Intake and Output 10/08/16 10/09/16 10/09/16 23:59 07:59 15:59 Intake Total 100 / 600 2421 / 2421 Output Total 425 / 425 560 / 560 Balance -325 / 175 1861 / 1861 Intake: IV Fluids 100 / 100 1200 / 1200 0.9 % Sodium Chloride 1, 1000 / 1000 000 ML @ 125 mls/hr IVC . Q8H [facility] Rx#:[id number] FentaNYL (PF) 1,000 MCG 100 / 100 In 0.9 % Sodium Chloride 80 ML @ 50 MCG/HR 5 mls/ hr IVC CONT [facility] Rx#: [id number] Diflucan 200 MG/100 ML 100 / 100 200 mg In 100 ml @ 100 mls/hr IVPB DAILY [facility] Rx# :[id number] Zosyn 3.375 GM In 100 / 100 Dextrose 5% (Minibag+) 100 ML 100 ML @ 25 mls/hr IVPB Q8HR [facility] Rx#: [id number] Oral 0 / 0 Other 1221 / 1221 Output: Estimated Blood Loss 25 / 25 Urine Amount (Catheter) 400 / 400 Catheter 425 / 425 Wound Drainage 135 / 135 Abdomen 135 / 135 Other: Weight 111.584 kg Blood Glucose* 165 213 - General physical appearance well developed, well nourished, no distress, moderate pain - Eyes normal ocular movement - ENT dry mucosa, normocephalic - Neck Neck exam: trachea midline - Respiratory clear to auscultation - Cardiovascular Cardiovascular exam: Present: RRR, murmurs - Abdomen Abdomen: Present: soft, tender (diffusely expected postop tenderness, grimaces to palpation). Absent: bowel sounds present - Incision Incision: Present: clean and dry, intact, open - Genitourinary other (ramon in place with dark urine) - Integumentary no rash - Neurologic other (sedated on vent) - Labs 10/09/16 03:29 10/09/16 03:29 Short CBC 10/09/16 10/08/16 Range/Units 03:29 15:54 WBC 18.7 H 18.1 H (4.3-11.1) K/mcL Hgb 8.5 L D 10.1 L (11.5-15.4) g/dL Hct 27.3 L 32.1 L (35.3-44.9) % Plt Count 239 233 (140-400) K/mcL Neutrophils # 16.4 H 15.8 H (1.6-8.9) K/mcL BMP 10/09/16 10/08/16 Range/Units 03:29 15:54 Sodium 135 L 136 (136-145) mEq/L Potassium 5.0 H 4.7 H (3.5-4.5) mEq/L Chloride 107 100 (98-109) mEq/L Carbon Dioxide 21 26 (19-29) mEq/L BUN 39 H 42 H (7-20) mg/dL Creatinine 1.06 1.13 H (0.57-1.11) mg/dL Glucose 153 H 171 H (70-99) mg/dL Calcium 8.6 D 10.3 (8.6-10.8) mg/dL Liver Function 10/08/16 Range/Units 15:54 Total Bilirubin 0.2 (0.2-1.2) mg/dL Direct Bilirubin 0.2 (0.0-0.5) mg/dL AST 15 (5-34) Units/L ALT 14 (0-55) Units/L Alkaline Phosphatase 57 (38-126) Units/L Albumin 2.5 L (3.5-5.0) g/dL Urine 10/08/16 Range/Units 15:16 Urine Color Yellow (Yellow) Urine Clarity Cloudy A (Clear) Urine pH 5.0 (5.0-8.0) pH Units Ur Specific [place] 1.019 (1.010-1.025) Urine Protein 30 H (Neg-Trace) mg/dL Urine Glucose (UA) Normal (Normal) mg/dL Vital Signs Temp Pulse Resp BP Pulse Ox 10/09/16 09:00 82 16 119/45 97 10/09/16 08:22 12 122/46 96 10/09/16 08:00 87 16 122/46 97 10/09/16 07:40 80 10/09/16 07:31 99.3 F 80 16 113/44 97 10/09/16 06:35 17 95/36 97 10/09/16 06:00 80 12 115/49 100 10/09/16 05:00 87 12 115/59 97 10/09/16 04:00 100.1 F H 79 12 101/42 97 10/09/16 03:57 15 94/39 96 10/09/16 03:00 79 12 100/53 95 10/09/16 02:00 75 12 87/36 94 L 10/09/16 01:52 12 79/34 95 10/09/16 01:00 74 12 94/38 96 10/09/16 00:00 98.1 F 72 12 99/41 97 10/08/16 23:52 12 102/40 96 10/08/16 23:00 81 12 106/57 98 10/08/16 22:00 78 16 110/38 97 10/08/16 21:59 12 111/60 95 10/08/16 21:30 80 16 130/51 97 10/08/16 21:00 80 16 126/48 96 10/08/16 20:47 97 F L 10/08/16 20:45 97 F L 80 12 109/43 94 L 10/08/16 17:57 22 130/75 10/08/16 17:40 93 22 130/75 95 10/08/16 16:34 86 18 156/50 98 10/08/16 15:53 86 20 143/86 93 L 10/08/16 14:49 98.8 F 91 16 151/65 94 L Intake and Output 10/08/16 10/09/16 10/09/16 23:59 07:59 15:59 Intake Total 600 / 600 2421 / 2421 Output Total 425 / 425 560 / 560 Balance 175 / 175 1861 / 1861 Intake: IV Fluids 600 / 600 1200 / 1200 0.9 % Sodium Chloride 1, 500 / 500 1000 / 1000 000 ML @ 125 mls/hr IVC . Q8H [facility] Rx#:[id number] FentaNYL (PF) 1,000 MCG 100 / 100 In 0.9 % Sodium Chloride 80 ML @ 50 MCG/HR 5 mls/ hr IVC CONT [facility] Rx#: [id number] Diflucan 200 MG/100 ML 100 / 100 200 mg In 100 ml @ 100 mls/hr IVPB DAILY [facility] Rx# :[id number] Zosyn 3.375 GM In 100 / 100 Dextrose 5% (Minibag+) 100 ML 100 ML @ 25 mls/hr IVPB Q8HR [facility] Rx#: [id number] Oral 0 / 0 Other 1221 / 1221 Output: Estimated Blood Loss 25 / 25 Urine Amount (Catheter) 400 / 400 Catheter 425 / 425 Wound Drainage 135 / 135 Abdomen 135 / 135 Other: Weight 111.584 kg Blood Glucose* 165 213
[2016-10-09] MEDS ORDERED: *HR* Morphine 2 MG/ML SYRINGE IVP PRN (12:56)
[2016-10-09] MEDS: *HR* Morphine 2 MG/ML SYRINGE IVP PRN ×4 (13:26→23:24)
[2016-10-09 16:19] LABS: Hematocrit 26.9 % (35.3-44.9); Hemoglobin 8.4 g/dL (11.5-15.4)
[2016-10-09] MEDS ORDERED: Fluconazole 100 MG/50 ML 100 MG/50 ML BAG IVPB SCH (19:00)
[2016-10-09] MEDS ORDERED: Acetaminophen IV 1,000 MG/100 ML INFUS..BTL IVPB PRN (23:43)
[2016-10-10] MEDS: FentaNYL (PF) 1,000 MCG in 0.9 % Sodium Chloride 80 ML IVC SCH (00:50)
[2016-10-10 04:30] LABS: Basophils # 0.1 K/mcL (0.0-0.2); Basophils % 0.3 %; Eosinophils # 0.2 K/mcL (0.0-0.6); Eosinophils % 0.9 %; Hematocrit 25.8 % (35.3-44.9); Lymphocytes # 1.5 K/mcL (0.6-4.6); Lymphocytes % 8.8 %; Mean Corpuscular Hemoglobin 28.8 pg (28.0-33.3); Mean Corpuscular Volume 92.8 fL (83.0-100.0); Mean Platelet Volume 11.2 fL (9.4-12.4); Monocytes # 0.6 K/mcL (0.0-1.3); Monocytes % 3.8 %; Neutrophils # 14.1 K/mcL (1.6-8.9); Platelet Count 242 K/mcL (140-400); Red Blood Count 2.78 M/mcL (3.82-4.97); Segmented Neutrophils % 85.2 %
[2016-10-10 04:41] LABS: Calcium 8.3 mg/dL (8.6-10.8); Magnesium 1.4 mg/dL (1.6-2.6); Phosphorous 3.3 mg/dL (2.3-4.7); Potassium 4.5 mEq/L (3.5-4.5)
[2016-10-10] MEDS: Ipratropium/Albuterol Neb 3 ML IH SCH ×4 (04:47→21:26)
[2016-10-10] MEDS: Insulin LISPRO 300 UNITS/3 ML VIAL SQ SCH ×3 (05:06→17:28)
[2016-10-10] MEDS: Lacri-Lube 3.5 GM TUBE BOTH EYES SCH ×2 (05:06→08:42)
[2016-10-10] MEDS: *HR* Morphine 2 MG/ML SYRINGE IVP PRN ×2 (05:12→08:34)
[2016-10-10] MEDS: 0.9 % Sodium Chloride 1,000 ML IVC SCH ×2 (05:20→12:33)
--- NOTE | 2016-10-10 07:00 | General Surgery Progress Note ---
<Mike Gary - Last Filed: 10/10/16 06:57> Date of Encounter: 10/10/16 Time of Encounter: 06:35 - Assessment and Plan (1) Free intraperitoneal air Current Visit: Yes Status: Resolved Post op day #2 status post exploratory laparotomy, gastric perforation wedge resection, ventral hernia repair, and placement of wound vac. The patient was extubated yesterday and is oxygenating well on 4L nasal canula at this time. Nasogastric tube in place. Positive bowel sounds. NPO to allow time for gastric wedge to heal. Continue IV fluids. Continue GI and DVT prophylaxis. (2) Perforated viscus Current Visit: Yes Status: Resolved Gastric perforation the posterior stomach wall at the greater curvature along with purulent fluid and gastric drainage. Approximately 2-3 cm distal this area was another area of stomach that appeared to be necrotic. Post op day #2 status post exploratory laparotomy, gastric perforation wedge resection, ventral hernia repair, and placement of wound vac. (3) Diabetes Current Visit: Yes Status: Acute Hold home medications. Continue to monitor and control with low-dose SSI. Qualifiers: Diabetes mellitus type: type 2 Diabetes mellitus complication status: with unspecified complications Diabetes mellitus intermodal dispatcher insulin use: without intermodal dispatcher use Qualified Code(s): E11.8 - Type 2 diabetes mellitus with unspecified complications (4) HTN (hypertension) Current Visit: Yes Status: Acute Well controlled at this time. Continue to monitor. Qualifiers: Hypertension type: essential hypertension Qualified Code(s): I10 - Essential (primary) hypertension (5) Hypothyroid Current Visit: Yes Status: Acute Continue IV syntroid today. Qualifiers: Hypothyroidism type: unspecified Qualified Code(s): E03.9 - Hypothyroidism , unspecified (6) Leukocytosis Current Visit: Yes Status: Acute Improving Continue Zosyn Day #3 Qualifiers: Leukocytosis type: unspecified Qualified Code(s): D72.829 - Elevated white blood cell count, unspecified (7) Ventral hernia Current Visit: Yes Status: Resolved Post op day #2 status post exploratory laparotomy, gastric perforation wedge resection, ventral hernia repair, and placement of wound vac. Qualifiers: Obstruction and gangrene presence: without obstruction or gangrene Qualified Code(s): K43.9 - Ventral hernia without obstruction or gangrene (8) UTI (urinary tract infection) Current Visit: Yes Status: Acute Patient is on Zosyn. Qualifiers: Urinary tract infection type: site unspecified Qualified Code(s): N39.0 - Urinary tract infection, site not specified; R31.9 - Hematuria, unspecified Subjective Patient reports: pain is less, no flatus, no bowel movement, fever (Tmax of 101.1 at 23:20 on 10/09) Narrative: The patient reports that she is quite comfortable at this time. She complains of an occasional sensation of a need to cough that occurs approximately every 45 minutes, which causes her to have some pain in her abdomen. She denied feeling feverish last night, but did have an elevated temperature. She denies having an appetite, and denies nausea and vomiting. Objective Vital Signs - Last 8 Hours Temp Pulse Resp BP Pulse Ox 10/10/16 06:00 81 20 134/53 96 10/10/16 05:00 79 22 117/52 97 10/10/16 04:47 20 96 10/10/16 04:00 78 20 126/54 94 L 10/10/16 03:25 99.5 F 81 20 113/45 94 L 10/10/16 02:00 82 18 106/57 94 L 10/10/16 01:00 86 24 121/46 93 L 10/10/16 00:00 90 22 128/50 92 L 10/09/16 23:20 101.1 F H 90 26 138/56 90 L Intake and Output 10/09/16 10/09/16 10/10/16 15:59 23:59 07:59 Intake Total 1276 / 1276 1200 / 1200 1200 / 1200 Output Total 510 / 510 340 / 340 150 / 150 Balance 766 / 766 860 / 860 1050 / 1050 Intake: IV Fluids 1276 / 1276 1200 / 1200 1200 / 1200 0.9 % Sodium Chloride 1, 1000 / 1000 1000 / 1000 1000 / 1000 000 ML @ 125 mls/hr IVC . Q8H [facility] Rx#:[id number] FentaNYL (PF) 1,000 MCG / 50 / 50 In 0.9 % Sodium Chloride 80 ML @ 50 MCG/HR 5 mls/ hr IVC CONT [facility] Rx#: [id number] Versed 50 MG In 0.9 % 50 / 50 0 / 0 Sodium Chloride 90 ML @ 2 MG/HR 4 mls/hr IVC CONT [facility] Rx#:[id number] Ofirmev 1,000 mg In 100 100 / 100 ml @ 400 mls/hr IVPB Q8HR PRN Rx#:[id number] Diflucan 100 MG/50 ML 100 50 / 50 mg In 50 ml @ 50 mls/hr IVPB Q24H [facility] Rx#: [id number] Magnesium Sulfate 2 GM In 104 / 104 Dextrose 5% 100 ML @ 100 mls/hr IVPB ONCE ONE Rx# :[id number] Zosyn 3.375 GM In 100 / 100 100 / 100 100 / 100 Dextrose 5% (Minibag+) 100 ML 100 ML @ 25 mls/hr IVPB Q8HR [facility] Rx#: [id number] Oral 0 / 0 0 / 0 Output: Catheter 350 / 350 300 / 300 125 / 125 Gastric Drainage 50 / 50 0 / 0 0 / 0 Wound Drainage 110 / 110 40 / 40 25 / 25 Abdomen 100 / 100 25 / 25 25 / 25 left lower abdomen 10 / 10 15 / 15 0 / 0 Other: Weight 105.233 kg Blood Glucose* 134 157 - General physical appearance well developed, well nourished, no distress - Eyes normal ocular movement - ENT normal mucosa, Other (nasogastric tube in place.) - Neck Neck exam: trachea midline - Respiratory normal respiratory effort, clear to auscultation - Cardiovascular Cardiovascular exam: Present: RRR - Abdomen Abdomen: Present: bowel sounds present, soft, tender (expected postoperative tenderness to midline incision) - Incision Incision: Present: clean and dry, intact, open (wound vac in place) - Neurologic CN 2-12 grossly intact - Musculoskeletal normal posture - Psychiatric oriented to person, oriented to place, speech is normal - Labs 10/10/16 04:10 10/10/16 04:10 Diabetes panel 10/10/16 Range/Units 04:10 Sodium 136 (136-145) mEq/L Potassium 4.5 (3.5-4.5) mEq/L Chloride 110 H (98-109) mEq/L Carbon Dioxide 19 (19-29) mEq/L BUN 32 H (7-20) mg/dL Creatinine 1.10 (0.57-1.11) mg/dL Glucose 141 H (70-99) mg/dL Calcium 8.3 L (8.6-10.8) mg/dL Calcium panel 10/10/16 Range/Units 04:10 Calcium 8.3 L (8.6-10.8) mg/dL Phosphorus 3.3 (2.3-4.7) mg/dL Pituitary panel 10/10/16 Range/Units 04:10 Sodium 136 (136-145) mEq/L Potassium 4.5 (3.5-4.5) mEq/L Chloride 110 H (98-109) mEq/L Carbon Dioxide 19 (19-29) mEq/L BUN 32 H (7-20) mg/dL Creatinine 1.10 (0.57-1.11) mg/dL Glucose 141 H (70-99) mg/dL Calcium 8.3 L (8.6-10.8) mg/dL Adrenal panel 10/10/16 Range/Units 04:10 Sodium 136 (136-145) mEq/L Potassium 4.5 (3.5-4.5) mEq/L Chloride 110 H (98-109) mEq/L Carbon Dioxide 19 (19-29) mEq/L BUN 32 H (7-20) mg/dL Creatinine 1.10 (0.57-1.11) mg/dL Glucose 141 H (70-99) mg/dL Calcium 8.3 L (8.6-10.8) mg/dL - VTE Documentation of Mechanical Device: Intermittent pneumatic compression device Consult Discharge Plan - Plan Referrals: Nica Pryor, PRESS CATCHER [Primary Care Provider] - - Attending Attestation I examined this patient and my medical decision-making was reviewed with the CARTRIDGE ASSEMBLER/PA/Advanced Practice Nurse/Resident Physician. I agree with the documented findings, disposition and treatment plan as described except to the extent set forth below. <Piper Ware - Last Filed: 10/10/16 10:44> Time of Encounter: 10:15 - Assessment and Plan (1) Free intraperitoneal air Current Visit: Yes Status: Resolved (2) Perforated viscus Current Visit: Yes Status: Resolved (3) HTN (hypertension) Current Visit: Yes Status: Acute Qualifiers: Hypertension type: essential hypertension Qualified Code(s): I10 - Essential (primary) hypertension (4) Diabetes Current Visit: Yes Status: Acute Qualifiers: Diabetes mellitus type: type 2 Diabetes mellitus complication status: with unspecified complications Diabetes mellitus mcfp insulin use: without intermodal dispatcher use Qualified Code(s): E11.8 - Type 2 diabetes mellitus with unspecified complications (5) Hypothyroid Current Visit: Yes Status: Acute Qualifiers: Hypothyroidism type: unspecified Qualified Code(s): E03.9 - Hypothyroidism , unspecified (6) Ventral hernia Current Visit: Yes Status: Resolved VH repaired in OR continue wound vac changes Qualifiers: Obstruction and gangrene presence: without obstruction or gangrene Qualified Code(s): K43.9 - Ventral hernia without obstruction or gangrene (7) Leukocytosis Current Visit: Yes Status: Acute improving, continue to trend, awaiting peritioneal cultures from OR continue zosyn and diflucan Qualifiers: Leukocytosis type: unspecified Qualified Code(s): D72.829 - Elevated white blood cell count, unspecified (8) Venous ulcer of ankle Current Visit: Yes Status: Acute continue daily wound care pt with peripheral neuropathy and do not think will tolerate mariam hose, may need kerlix and coban wrap Qualifiers: Laterality: left Qualified Code(s): 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 (9) Gastric perforation Current Visit: Yes Status: Acute pod 2 ex lap, gastric wedge resection, VHR, lysis of adhesions continue npo, ngt decompression prn pain control protonix BID dvt prophylaxis await return of bowel function will get UGI pod 4 and if no leak ok dc ngt and start clears Qualifiers: Gastric ulcer chronicity: acute Qualified Code(s): K25.1 - Acute gastric ulcer with perforation (10) UTI (urinary tract infection) Current Visit: Yes Status: Acute Serratia, on zosyn, is sensitive Qualifiers: Urinary tract infection type: site unspecified Hematuria presence: with hematuria Qualified Code(s): N39.0 - Urinary tract infection, site not specified; R31.9 - Hematuria, unspecified Subjective Narrative: complaining of bilateral arm and leg pain, especially at left ankle where she has an open wound abdominal pain well controlled, no nausea pt is complaining of anxiety Objective Vital Signs - Last 8 Hours Temp Pulse Resp BP Pulse Ox 10/10/16 10:00 85 19 137/55 94 L 10/10/16 09:00 81 20 139/81 96 10/10/16 08:00 78 16 138/59 94 L 10/10/16 07:20 98.0 F 10/10/16 06:00 81 20 134/53 96 10/10/16 05:00 79 22 117/52 97 10/10/16 04:47 20 96 10/10/16 04:00 78 20 126/54 94 L 10/10/16 03:25 99.5 F 81 20 113/45 94 L Intake and Output 10/09/16 10/10/16 10/10/16 23:59 07:59 15:59 Intake Total 1200 / 1200 1200 / 1200 Output Total 340 / 340 300 / 300 Balance 860 / 860 900 / 900 Intake: IV Fluids 1200 / 1200 1200 / 1200 0.9 % Sodium Chloride 1, 1000 / 1000 1000 / 1000 000 ML @ 125 mls/hr IVC . Q8H [facility] Rx#:[id number] FentaNYL (PF) 1,000 MCG 50 / 50 In 0.9 % Sodium Chloride 80 ML @ 50 MCG/HR 5 mls/ hr IVC CONT [facility] Rx#: [id number] Versed 50 MG In 0.9 % 0 / 0 Sodium Chloride 90 ML @ 2 MG/HR 4 mls/hr IVC CONT [facility] Rx#:[id number] Ofirmev 1,000 mg In 100 100 / 100 ml @ 400 mls/hr IVPB Q8HR PRN Rx#:[id number] Diflucan 100 MG/50 ML 100 50 / 50 mg In 50 ml @ 50 mls/hr IVPB Q24H [facility] Rx#: [id number] Zosyn 3.375 GM In 100 / 100 100 / 100 Dextrose 5% (Minibag+) 100 ML 100 ML @ 25 mls/hr IVPB Q8HR [facility] Rx#: [id number] Oral 0 / 0 0 / 0 Output: Catheter 300 / 300 275 / 275 Gastric Drainage 0 / 0 0 / 0 Wound Drainage 40 / 40 25 / 25 Abdomen 25 / 25 25 / 25 left lower abdomen 15 / 15 0 / 0 Other: Weight 105.233 kg Blood Glucose* 157 - General physical appearance well nourished, no distress, moderate distress, moderate pain, obese - Eyes PERRL, normal ocular movement - ENT dry mucosa, atraumatic, normocephalic - Neck Neck exam: trachea midline - Respiratory normal expansion, clear to auscultation - Cardiovascular Cardiovascular exam: Present: RRR - Abdomen Abdomen: Present: soft, tender. Absent: bowel sounds present - Incision Incision: Present: clean and dry, intact, open - Integumentary no rash, no growths, no abnormal pigmentation - Neurologic CN 2-12 grossly intact - Musculoskeletal normal posture - Psychiatric oriented to time, oriented to person, oriented to place, speech is normal, memory intact - Labs 10/10/16 04:10 10/10/16 04:10 Short CBC 10/10/16 10/09/16 Range/Units 04:10 16:11 WBC 16.6 H (4.3-11.1) K/mcL Hgb 8.0 L 8.4 L (11.5-15.4) g/dL Hct 25.8 L 26.9 L (35.3-44.9) % Plt Count 242 (140-400) K/mcL Neutrophils # 14.1 H (1.6-8.9) K/mcL BMP 10/10/16 Range/Units 04:10 Sodium 136 (136-145) mEq/L Potassium 4.5 (3.5-4.5) mEq/L Chloride 110 H (98-109) mEq/L Carbon Dioxide 19 (19-29) mEq/L BUN 32 H (7-20) mg/dL Creatinine 1.10 (0.57-1.11) mg/dL Glucose 141 H (70-99) mg/dL Calcium 8.3 L (8.6-10.8) mg/dL Vital Signs Temp Pulse Resp BP Pulse Ox 10/10/16 10:00 85 19 137/55 94 L 10/10/16 09:00 81 20 139/81 96 10/10/16 08:00 78 16 138/59 94 L 10/10/16 07:20 98.0 F 10/10/16 06:00 81 20 134/53 96 10/10/16 05:00 79 22 117/52 97 10/10/16 04:47 20 96 10/10/16 04:00 78 20 126/54 94 L 10/10/16 03:25 99.5 F 81 20 113/45 94 L 10/10/16 02:00 82 18 106/57 94 L 10/10/16 01:00 86 24 121/46 93 L 10/10/16 00:00 90 22 128/50 92 L 10/09/16 23:20 101.1 F H 90 26 138/56 90 L 10/09/16 22:22 24 93 L 10/09/16 22:00 95 26 130/49 93 L 10/09/16 21:00 90 26 125/55 91 L 10/09/16 20:30 100.7 F H 90 26 127/56 90 L 10/09/16 19:00 95 24 117/74 92 L 10/09/16 18:28 97 28 121/45 92 L 10/09/16 17:28 98 28 132/52 93 L 10/09/16 16:30 24 91 L 10/09/16 16:00 92 26 117/42 90 L 10/09/16 15:22 99.8 F H 10/09/16 15:00 92 10/09/16 14:13 132/52 91 L 10/09/16 14:00 92 24 132/49 92 L 10/09/16 13:00 92 24 122/51 92 L 10/09/16 12:00 91 34 117/42 94 L 10/09/16 11:40 24 92 L 10/09/16 11:38 34 94 L 10/09/16 11:00 100.1 F H 86 18 165/85 96 Intake and Output 10/09/16 10/10/16 10/10/16 23:59 07:59 15:59 Intake Total 1200 / 1200 1200 / 1200 Output Total 340 / 340 300 / 300 Balance 860 / 860 900 / 900 Intake: IV Fluids 1200 / 1200 1200 / 1200 0.9 % Sodium Chloride 1, 1000 / 1000 1000 / 1000 000 ML @ 125 mls/hr IVC . Q8H [facility] Rx#:[id number] FentaNYL (PF) 1,000 MCG 50 / 50 In 0.9 % Sodium Chloride 80 ML @ 50 MCG/HR 5 mls/ hr IVC CONT [facility] Rx#: [id number] Versed 50 MG In 0.9 % 0 / 0 Sodium Chloride 90 ML @ 2 MG/HR 4 mls/hr IVC CONT [facility] Rx#:[id number] Ofirmev 1,000 mg In 100 100 / 100 ml @ 400 mls/hr IVPB Q8HR PRN Rx#:[id number] Diflucan 100 MG/50 ML 100 50 / 50 mg In 50 ml @ 50 mls/hr IVPB Q24H [facility] Rx#: [id number] Zosyn 3.375 GM In 100 / 100 100 / 100 Dextrose 5% (Minibag+) 100 ML 100 ML @ 25 mls/hr IVPB Q8HR [facility] Rx#: [id number] Oral 0 / 0 0 / 0 Output: Catheter 300 / 300 275 / 275 Gastric Drainage 0 / 0 0 / 0 Wound Drainage 40 / 40 25 / 25 Abdomen 25 / 25 25 / 25 left lower abdomen 15 / 15 0 / 0 Other: Weight 105.233 kg Blood Glucose* 157
[2016-10-10] MEDS: Chlorhexidine Rinse 15 ML MOUTHWASH MM SCH (08:35)
[2016-10-10] MEDS: Levothyroxine Sodium 100 MCG VIAL IVP SCH (08:35)
[2016-10-10] MEDS: Piperacillin/Tazobactam 3.375 GM in D5% in Water (Mini-Bag+) 100 ML IVPB SCH ×3 (08:35→23:23)
[2016-10-10] MEDS: Pantoprazole 40 MG VIAL IVP SCH ×2 (08:35→20:24)
[2016-10-10] MEDS ORDERED: Magnesium Sulfate 2 GM in D5% in Water 100 ML IVPB ONE (10:21)
[2016-10-10] MEDS ORDERED: Dextrose Gel 15 GM PO PRN ×2 (10:55)
[2016-10-10] MEDS ORDERED: Naloxone 0.4 MG/ML INJ IVP PRN (10:55)
[2016-10-10] MEDS ORDERED: Ondansetron 4 MG/2 ML VIAL IVP PRN (10:55)
[2016-10-10] MEDS ORDERED: *HR* Dextrose 50 % in Water (Syg) 50 ML SYRINGE IVP PRN (10:55)
[2016-10-10] MEDS ORDERED: Acetaminophen IV 1,000 MG/100 ML INFUS..BTL IVPB PRN (10:55)
[2016-10-10] MEDS ORDERED: D5% in Water 1,000 ML IV PRN (10:55)
[2016-10-10] MEDS: *HR* HYDROmorphone (PF) 1 MG/ML SYRINGE IVP PRN ×3 (11:13→23:05)
--- NOTE | 2016-10-10 14:55 | Electrocardiograph Report ---
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
[2016-10-10] MEDS ORDERED: *HR* Heparin 5,000 UNIT/ML VIAL SQ SCH (15:00)
[2016-10-10] MEDS: Fluconazole 100 MG/50 ML 100 MG/50 ML BAG IVPB SCH (20:25)
[2016-10-10] MEDS: *HR* LORazepam 2 MG/ML VIAL IVP PRN (21:43)
[2016-10-11] MEDS: *HR* HYDROmorphone (PF) 1 MG/ML SYRINGE IVP PRN ×5 (02:20→22:46)
[2016-10-11] MEDS: Insulin LISPRO 300 UNITS/3 ML VIAL SQ SCH ×5 (03:31→23:38)
[2016-10-11] MEDS: 0.9 % Sodium Chloride 1,000 ML IVC SCH ×2 (03:39→15:57)
[2016-10-11] MEDS: *HR* LORazepam 2 MG/ML VIAL IVP PRN ×2 (03:39→08:56)
[2016-10-11] MEDS: Ipratropium/Albuterol Neb 3 ML IH SCH ×4 (05:09→21:00)
[2016-10-11 05:25] LABS: Basophils # 0.1 K/mcL (0.0-0.2); Basophils % 0.6 %; Eosinophils # 0.3 K/mcL (0.0-0.6); Eosinophils % 2.3 %; Hemoglobin 8.8 g/dL (11.5-15.4); Immature Granulocytes % 1.1 % (0-4); Lymphocytes # 1.5 K/mcL (0.6-4.6); Lymphocytes % 11.4 %; Mean Corpuscular HGB Conc 30.3 g/dL (31.6-35.5); Mean Corpuscular Hemoglobin 28.4 pg (28.0-33.3); Mean Corpuscular Volume 93.5 fL (83.0-100.0); Mean Platelet Volume 11.1 fL (9.4-12.4); Monocytes # 0.5 K/mcL (0.0-1.3); Monocytes % 4.2 %; Neutrophils # 10.2 K/mcL (1.6-8.9); Platelet Count 283 K/mcL (140-400); Segmented Neutrophils % 80.4 %
[2016-10-11 05:36] LABS: BUN/Creatinine Ratio 27 (6-26); Blood Urea Nitrogen 26 mg/dL (7-20); Calcium 8.6 mg/dL (8.6-10.8); Carbon Dioxide 18 mEq/L (19-29); Chloride 111 mEq/L (98-109); Glucose 132 mg/dL (70-99); Osmolality,Calculated 293 (280-300); Potassium 4.4 mEq/L (3.5-4.5); Sodium 138 mEq/L (136-145); eGFR For African Americans > 60 (> 60); eGFR For Non-African Americans 57 (> 60)
--- NOTE | 2016-10-11 06:48 | General Surgery Progress Note ---
<Mike Gary - Last Filed: 10/11/16 06:45> Date of Encounter: 10/11/16 Time of Encounter: 06:30 - Assessment and Plan (1) Free intraperitoneal air Current Visit: Yes Status: Resolved Post op day #3 status post exploratory laparotomy, gastric perforation wedge resection, ventral hernia repair, and placement of wound vac. Continue supplemental oxygen as needed. Patient pulled out nasogastric tube. No nausea at this time. Positive bowel sounds in RUQ. NPO to allow time for gastric wedge to heal. Continue IV fluids. Continue GI and DVT prophylaxis. (2) Gastric perforation Current Visit: Yes Status: Acute Continue pain control. Protonix BID. UGI tomorrow. If no leak, will start clears. Qualifiers: Gastric ulcer chronicity: acute Qualified Code(s): K25.1 - Acute gastric ulcer with perforation (3) Diabetes Current Visit: Yes Status: Acute Hold home medications. Continue to monitor and control with low-dose SSI. Qualifiers: Diabetes mellitus type: type 2 Diabetes mellitus complication status: with unspecified complications Diabetes mellitus mcfp insulin use: without mcfp use Qualified Code(s): E11.8 - Type 2 diabetes mellitus with unspecified complications (4) HTN (hypertension) Current Visit: Yes Status: Acute Elevated today at 166/64. Lopressor 5mg IV PRN ordered, has not been given. Qualifiers: Hypertension type: essential hypertension Qualified Code(s): I10 - Essential (primary) hypertension (5) Hypothyroid Current Visit: Yes Status: Acute Continue IV syntroid. Qualifiers: Hypothyroidism type: unspecified Qualified Code(s): E03.9 - Hypothyroidism , unspecified (6) Leukocytosis Current Visit: Yes Status: Acute Improving Continue Zosyn Day #4 Qualifiers: Leukocytosis type: unspecified Qualified Code(s): D72.829 - Elevated white blood cell count, unspecified (7) Ventral hernia Current Visit: Yes Status: Resolved Post op day #3 status post exploratory laparotomy, gastric perforation wedge resection, ventral hernia repair, and placement of wound vac. Qualifiers: Obstruction and gangrene presence: without obstruction or gangrene Qualified Code(s): K43.9 - Ventral hernia without obstruction or gangrene (8) UTI (urinary tract infection) Current Visit: Yes Status: Acute Patient is on Zosyn. White count improving. Culture demonstrates sensitivity to Zosyn. Qualifiers: Urinary tract infection type: site unspecified Hematuria presence: with hematuria Qualified Code(s): N39.0 - Urinary tract infection, site not specified; R31.9 - Hematuria, unspecified Subjective Patient reports: still having pain, no flatus, no bowel movement, afebrile Narrative: The patient complained of some LLQ abdominal pain this morning, and when asked to describe it she stated that it "wasn't that bad." She denies nausea and vomiting. She exhibits some mild confusion. She pulled out her NG tube last night. Denies feeling short of breath. Objective Vital Signs - Last 8 Hours Temp Pulse Resp BP Pulse Ox 10/11/16 05:11 16 93 L 10/11/16 04:54 98.5 F 83 16 166/64 94 L 10/10/16 23:10 98.4 F 81 16 133/69 94 L Intake and Output 10/10/16 10/10/16 10/11/16 15:59 23:59 07:59 Intake Total 250 / 250 1100 / 1100 Output Total 200 / 200 0 / 0 310 / 310 Balance -200 / -200 250 / 250 790 / 790 Intake: IV Fluids 250 / 250 1100 / 1100 0.9 % Sodium Chloride 1, 1000 / 1000 000 ML @ 80 mls/hr IVC . [id number] [facility] Rx#: [id number] Ofirmev 1,000 mg In 100 100 / 100 ml @ 400 mls/hr IVPB Q8HR PRN Rx#:[id number] Diflucan 100 MG/50 ML 100 50 / 50 mg In 50 ml @ 50 mls/hr IVPB Q24H PAM Rx#: [id number] Zosyn 3.375 GM In 100 / 100 100 / 100 Dextrose 5% (Minibag+) 100 ML 100 ML @ 25 mls/hr IVPB Q8HR [facility] Rx#: [id number] Oral 0 / 0 0 / 0 Output: Urine 250 / 250 Urethral (De La O) 250 / 250 Catheter 200 / 200 0 / 0 0 / 0 Gastric Drainage 0 / 0 Wound Drainage 0 / 0 0 / 0 60 / 60 Abdomen 40 / 40 left lower abdomen 0 / 0 0 / 0 20 / 20 Other: Meal NPO lunch NPO # Voids 1 Weight 106.587 kg Blood Glucose* 149 132 Patient Weight 10/11/16 23:59 Weight 106.587 kg - General physical appearance well developed, well nourished, no distress - Eyes normal ocular movement - ENT normal mucosa, atraumatic, normocephalic - Neck Neck exam: trachea midline - Respiratory clear to auscultation, other (increased work of breathing) - Cardiovascular Cardiovascular exam: Present: RRR - Abdomen Abdomen: Present: bowel sounds present (Only in the RUQ.), soft, tender ( expected post surgical tenderness. Some tenderness to the LLQ to deep palpation. ), wound (with serosanguineous drainage) - Incision Incision: Present: clean and dry, intact, open (wound vac in place) - Integumentary other (bandage in place over left ankle) - Neurologic CN 2-12 grossly intact - Psychiatric oriented to person, oriented to place, speech is normal, other (appears somnolent ) - Labs 10/11/16 04:43 10/11/16 04:43 Diabetes panel 10/11/16 Range/Units 04:43 Sodium 138 (136-145) mEq/L Potassium 4.4 (3.5-4.5) mEq/L Chloride 111 H (98-109) mEq/L Carbon Dioxide 18 L (19-29) mEq/L BUN 26 H (7-20) mg/dL Creatinine 0.95 (0.57-1.11) mg/dL Glucose 132 H (70-99) mg/dL Calcium 8.6 (8.6-10.8) mg/dL Calcium panel 10/11/16 Range/Units 04:43 Calcium 8.6 (8.6-10.8) mg/dL Pituitary panel 10/11/16 Range/Units 04:43 Sodium 138 (136-145) mEq/L Potassium 4.4 (3.5-4.5) mEq/L Chloride 111 H (98-109) mEq/L Carbon Dioxide 18 L (19-29) mEq/L BUN 26 H (7-20) mg/dL Creatinine 0.95 (0.57-1.11) mg/dL Glucose 132 H (70-99) mg/dL Calcium 8.6 (8.6-10.8) mg/dL Adrenal panel 10/11/16 Range/Units 04:43 Sodium 138 (136-145) mEq/L Potassium 4.4 (3.5-4.5) mEq/L Chloride 111 H (98-109) mEq/L Carbon Dioxide 18 L (19-29) mEq/L BUN 26 H (7-20) mg/dL Creatinine 0.95 (0.57-1.11) mg/dL Glucose 132 H (70-99) mg/dL Calcium 8.6 (8.6-10.8) mg/dL - VTE Documentation of Mechanical Device: Intermittent pneumatic compression device Consult Discharge Plan - Plan Referrals: Nica Pryor, ROTARY OPERATOR [Primary Care Provider] - - Attending Attestation I examined this patient and my medical decision-making was reviewed with the PAYABLE REPRESENTATIVE/PA/Advanced Practice Nurse/Resident Physician. I agree with the documented findings, disposition and treatment plan as described except to the extent set forth below. <Piper Ware - Last Filed: 10/11/16 14:18> Time of Encounter: 13:00 - Assessment and Plan (1) Free intraperitoneal air Current Visit: Yes Status: Resolved (2) HTN (hypertension) Current Visit: Yes Status: Acute low dose lopressor ordered, monitor, intermittetly hypertensive Qualifiers: Hypertension type: essential hypertension Qualified Code(s): I10 - Essential (primary) hypertension (3) Diabetes Current Visit: Yes Status: Acute MBS decently controlled, continue SSI Qualifiers: Diabetes mellitus type: type 2 Diabetes mellitus complication status: with unspecified complications Diabetes mellitus mcfp insulin use: without mcfp use Qualified Code(s): E11.8 - Type 2 diabetes mellitus with unspecified complications (4) Hypothyroid Current Visit: Yes Status: Acute Qualifiers: Hypothyroidism type: unspecified Qualified Code(s): E03.9 - Hypothyroidism , unspecified (5) Ventral hernia Current Visit: Yes Status: Resolved VH repaired in OR, continue wound vac changes three times weekly Qualifiers: Obstruction and gangrene presence: without obstruction or gangrene Qualified Code(s): K43.9 - Ventral hernia without obstruction or gangrene (6) Leukocytosis Current Visit: Yes Status: Acute decreased today, continue zosyn and diflucan Qualifiers: Leukocytosis type: unspecified Qualified Code(s): D72.829 - Elevated white blood cell count, unspecified (7) Venous ulcer of ankle Current Visit: Yes Status: Acute continue daily wound care she is having increased edema, mariam hose on in am, off in pm Qualifiers: Laterality: left Qualified Code(s): 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 (8) Gastric perforation Current Visit: Yes Status: Acute Qualifiers: Gastric ulcer chronicity: acute Qualified Code(s): K25.1 - Acute gastric ulcer with perforation (9) UTI (urinary tract infection) Current Visit: Yes Status: Acute Qualifiers: Urinary tract infection type: site unspecified Hematuria presence: with hematuria Qualified Code(s): N39.0 - Urinary tract infection, site not specified; R31.9 - Hematuria, unspecified Subjective Narrative: states pain controlled no nausea or emesis feels some sob Objective Vital Signs - Last 8 Hours Temp Pulse Resp BP Pulse Ox 10/11/16 11:11 97.7 F 82 16 157/76 97 10/11/16 10:57 16 94 L 10/11/16 06:53 93 L 10/11/16 06:44 97.4 F L 79 16 117/57 93 L Intake and Output 10/10/16 10/11/16 10/11/16 23:59 07:59 15:59 Intake Total 250 / 250 1450 / 1450 412 / 412 Output Total 0 / 0 320 / 320 260 / 260 Balance 250 / 250 1130 / 1130 152 / 152 Intake: IV Fluids 250 / 250 1450 / 1450 412 / 412 0.9 % Sodium Chloride 1, 1350 / 1350 312 / 312 000 ML @ 80 mls/hr IVC . [id number] [facility] Rx#: [id number] Ofirmev 1,000 mg In 100 100 / 100 ml @ 400 mls/hr IVPB Q8HR PRN Rx#:[id number] Diflucan 100 MG/50 ML 100 50 / 50 mg In 50 ml @ 50 mls/hr IVPB Q24H [facility] Rx#: [id number] Zosyn 3.375 GM In 100 / 100 100 / 100 100 / 100 Dextrose 5% (Minibag+) 100 ML 100 ML @ 25 mls/hr IVPB Q8HR PAM Rx#: [id number] Oral 0 / 0 0 / 0 0 / 0 Output: Urine 250 / 250 Urethral (De La O) 250 / 250 Catheter 0 / 0 0 / 0 250 / 250 Gastric Drainage 0 / 0 Wound Drainage 0 / 0 70 / 70 10 / 10 Abdomen 50 / 50 10 / 10 left lower abdomen 0 / 0 20 / 20 0 / 0 Other: Meal NPO NPO for lunch Percent of Meal Consumed 0% # Voids 1 Weight 106.587 kg Blood Glucose* 149 132 129 Patient Weight 10/11/16 23:59 Weight 106.587 kg - General physical appearance well developed, well nourished, no distress, obese - Eyes PERRL, normal ocular movement - ENT dry mucosa, atraumatic, normocephalic - Neck Neck exam: trachea midline - Respiratory normal expansion, clear to auscultation, other - Cardiovascular Cardiovascular exam: Present: RRR - Abdomen Abdomen: Present: soft, tender. Absent: bowel sounds present - Incision Incision: Present: clean and dry, open - Integumentary no rash, no growths - Neurologic CN 2-12 grossly intact - Psychiatric oriented to person - Labs 10/11/16 04:43 10/11/16 04:43 Short CBC 10/11/16 Range/Units 04:43 WBC 12.7 H (4.3-11.1) K/mcL Hgb 8.8 L (11.5-15.4) g/dL Hct 29.0 L (35.3-44.9) % Plt Count 283 (140-400) K/mcL Neutrophils # 10.2 H (1.6-8.9) K/mcL BMP 10/11/16 Range/Units 04:43 Sodium 138 (136-145) mEq/L Potassium 4.4 (3.5-4.5) mEq/L Chloride 111 H (98-109) mEq/L Carbon Dioxide 18 L (19-29) mEq/L BUN 26 H (7-20) mg/dL Creatinine 0.95 (0.57-1.11) mg/dL Glucose 132 H (70-99) mg/dL Calcium 8.6 (8.6-10.8) mg/dL Vital Signs Temp Pulse Resp BP Pulse Ox 10/11/16 11:11 97.7 F 82 16 157/76 97 10/11/16 10:57 16 94 L 10/11/16 06:53 93 L 10/11/16 06:44 97.4 F L 79 16 117/57 93 L 10/11/16 05:11 16 93 L 10/11/16 04:54 98.5 F 83 16 166/64 94 L 10/10/16 23:10 98.4 F 81 16 133/69 94 L 10/10/16 21:26 16 93 L 10/10/16 19:50 94 L 10/10/16 18:42 101.0 F H 83 16 151/67 94 L 10/10/16 14:57 98.4 F 80 16 146/56 92 L Intake and Output 10/10/16 10/11/16 10/11/16 23:59 07:59 15:59 Intake Total 250 / 250 1450 / 1450 412 / 412 Output Total 0 / 0 320 / 320 260 / 260 Balance 250 / 250 1130 / 1130 152 / 152 Intake: IV Fluids 250 / 250 1450 / 1450 412 / 412 0.9 % Sodium Chloride 1, 1350 / 1350 312 / 312 000 ML @ 80 mls/hr IVC . [id number] [facility] Rx#: [id number] Ofirmev 1,000 mg In 100 100 / 100 ml @ 400 mls/hr IVPB Q8HR PRN Rx#:[id number] Diflucan 100 MG/50 ML 100 50 / 50 mg In 50 ml @ 50 mls/hr IVPB Q24H [facility] Rx#: [id number] Zosyn 3.375 GM In 100 / 100 100 / 100 100 / 100 Dextrose 5% (Minibag+) 100 ML 100 ML @ 25 mls/hr IVPB Q8HR [facility] Rx#: [id number] Oral 0 / 0 0 / 0 0 / 0 Output: Urine 250 / 250 Urethral (De La O) 250 / 250 Catheter 0 / 0 0 / 0 250 / 250 Gastric Drainage 0 / 0 Wound Drainage 0 / 0 70 / 70 10 / 10 Abdomen 50 / 50 10 / 10 left lower abdomen 0 / 0 20 / 20 0 / 0 Other: Meal NPO NPO for lunch Percent of Meal Consumed 0% # Voids 1 Weight 106.587 kg Blood Glucose* 149 132 129 Patient Weight 10/11/16 23:59 Weight 106.587 kg
[2016-10-11] MEDS: Piperacillin/Tazobactam 3.375 GM in D5% in Water (Mini-Bag+) 100 ML IVPB SCH ×3 (07:48→22:47)
[2016-10-11] MEDS: Pantoprazole 40 MG VIAL IVP SCH ×2 (07:48→20:16)
[2016-10-11] MEDS: Levothyroxine Sodium 100 MCG VIAL IVP SCH (07:49)
[2016-10-11] MEDS: *HR* Metoprolol 5 MG/5 ML VIAL IVP PRN (14:19)
[2016-10-11] MEDS: Fluconazole 100 MG/50 ML 100 MG/50 ML BAG IVPB SCH (17:30)
[2016-10-11] MEDS: *HR* Metoprolol 5 MG/5 ML VIAL IVP SCH ×2 (17:30→22:46)
[2016-10-12] MEDS: *HR* HYDROmorphone (PF) 1 MG/ML SYRINGE IVP PRN ×5 (02:35→21:27)
[2016-10-12] MEDS: Ipratropium/Albuterol Neb 3 ML IH SCH ×4 (04:56→21:40)
[2016-10-12 05:02] LABS: Basophils # 0.1 K/mcL (0.0-0.2); Basophils % 0.9 %; Eosinophils # 0.4 K/mcL (0.0-0.6); Eosinophils % 4.6 %; Hematocrit 26.9 % (35.3-44.9); Hemoglobin 8.2 g/dL (11.5-15.4); Immature Granulocytes % 0.7 % (0-4); Lymphocytes # 1.1 K/mcL (0.6-4.6); Lymphocytes % 13.7 %; Mean Corpuscular HGB Conc 30.5 g/dL (31.6-35.5); Mean Corpuscular Hemoglobin 29.1 pg (28.0-33.3); Mean Corpuscular Volume 95.4 fL (83.0-100.0); Monocytes # 0.4 K/mcL (0.0-1.3); Neutrophils # 6.2 K/mcL (1.6-8.9); Platelet Count 268 K/mcL (140-400); Red Blood Count 2.82 M/mcL (3.82-4.97); Segmented Neutrophils % 75.1 %
[2016-10-12 05:35] LABS: BUN/Creatinine Ratio 24 (6-26); Blood Urea Nitrogen 19 mg/dL (7-20); Calcium 8.2 mg/dL (8.6-10.8); Carbon Dioxide 19 mEq/L (19-29); Chloride 111 mEq/L (98-109); Glucose 114 mg/dL (70-99); Osmolality,Calculated 291 (280-300); Potassium 4.6 mEq/L (3.5-4.5); Sodium 139 mEq/L (136-145); eGFR For African Americans > 60 (> 60); eGFR For Non-African Americans > 60 (> 60)
[2016-10-12 05:39] LABS: Magnesium 1.4 mg/dL (1.6-2.6); Phosphorous 2.5 mg/dL (2.3-4.7)
[2016-10-12] MEDS: Insulin LISPRO 300 UNITS/3 ML VIAL SQ SCH ×3 (05:49→17:39)
[2016-10-12] MEDS: *HR* LORazepam 2 MG/ML VIAL IVP PRN (05:54)
[2016-10-12] MEDS: *HR* Metoprolol 5 MG/5 ML VIAL IVP SCH (05:54)
[2016-10-12] MEDS: 0.9 % Sodium Chloride 1,000 ML IVC SCH ×3 (06:00→21:36)
--- NOTE | 2016-10-12 06:58 | General Surgery Progress Note ---
<Mike Gary - Last Filed: 10/12/16 11:18> Date of Encounter: 10/12/16 Time of Encounter: 06:35 - Assessment and Plan (1) Free intraperitoneal air Current Visit: Yes Status: Resolved Post op day #4 status post exploratory laparotomy, gastric perforation wedge resection, ventral hernia repair, and placement of wound vac. Continue supplemental oxygen as needed. Positive bowel sounds. Advance to clear liquid diet to be given while the patient is sitting up in a chair. Continue IV fluids. Continue GI and DVT prophylaxis. (2) Gastric perforation Current Visit: Yes Status: Acute Continue pain control. Protonix BID. Will start clear liquid diet while sitting up in chair. Will assess for how the patient is able to tolerate diet. Qualifiers: Gastric ulcer chronicity: acute Qualified Code(s): K25.1 - Acute gastric ulcer with perforation (3) Diabetes Current Visit: Yes Status: Acute Hold home medications. Continue to monitor and control with low-dose SSI. Qualifiers: Diabetes mellitus type: type 2 Diabetes mellitus complication status: with unspecified complications Diabetes mellitus terminal clerk insulin use: without terminal clerk use Qualified Code(s): E11.8 - Type 2 diabetes mellitus with unspecified complications (4) HTN (hypertension) Current Visit: Yes Status: Acute Elevated today at 166/64. Lopressor 5mg IV PRN ordered, has not been given. Scheduled lopressor 2.5mg q6hr added. Continue to monitor, consider increasing scheduled dose. Qualifiers: Hypertension type: essential hypertension Qualified Code(s): I10 - Essential (primary) hypertension (5) Hypothyroid Current Visit: Yes Status: Acute Continue IV syntroid. Qualifiers: Hypothyroidism type: unspecified Qualified Code(s): E03.9 - Hypothyroidism , unspecified (6) Leukocytosis Current Visit: Yes Status: Acute Improving Continue Zosyn Day #5 Qualifiers: Leukocytosis type: unspecified Qualified Code(s): D72.829 - Elevated white blood cell count, unspecified (7) Ventral hernia Current Visit: Yes Status: Resolved Post op day #4 status post exploratory laparotomy, gastric perforation wedge resection, ventral hernia repair, and placement of wound vac. Qualifiers: Obstruction and gangrene presence: without obstruction or gangrene Qualified Code(s): K43.9 - Ventral hernia without obstruction or gangrene (8) UTI (urinary tract infection) Current Visit: Yes Status: Acute Patient is on Zosyn. White count improving. Culture demonstrates sensitivity to Zosyn. Qualifiers: Urinary tract infection type: site unspecified Hematuria presence: with hematuria Qualified Code(s): N39.0 - Urinary tract infection, site not specified; R31.9 - Hematuria, unspecified (9) Venous ulcer of ankle Current Visit: Yes Status: Acute Worsening pain this morning. Restart Neurotin. IV lasix 20mg once today. Continue wound dressings. 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 However, she will yell and complain of immense pain if her left foot is touched that radiates all the way up her knee. She is unable to report if she is having any flatus at this time. Objective Vital Signs - Last 8 Hours Temp Pulse Resp BP Pulse Ox 10/12/16 05:33 98.2 F 79 17 164/66 94 L 10/12/16 04:56 18 94 L 10/11/16 23:28 98.4 F 77 16 158/72 94 L Intake and Output 10/11/16 10/11/16 10/12/16 15:59 23:59 07:59 Intake Total 750 / 750 150 / 150 100 / 100 Output Total 530 / 530 450 / 450 365 / 365 Balance 220 / 220 -300 / -300 -265 / -265 Intake: IV Fluids 750 / 750 150 / 150 100 / 100 0.9 % Sodium Chloride 1, 650 / 650 000 ML @ 80 mls/hr IVC . [id number] [facility] Rx#: [id number] Diflucan 100 MG/50 ML 100 50 / 50 mg In 50 ml @ 50 mls/hr IVPB Q24H [facility] Rx#: [id number] Zosyn 3.375 GM In 100 / 100 100 / 100 100 / 100 Dextrose 5% (Minibag+) 100 ML 100 ML @ 25 mls/hr IVPB Q8HR PAM Rx#: [id number] Oral 0 / 0 0 / 0 0 / 0 Output: Catheter 500 / 500 450 / 450 350 / 350 Wound Drainage 30 / 30 0 / 0 15 / 15 Abdomen 30 / 30 Right Abdomen 0 / 0 0 / 0 15 / 15 left lower abdomen 0 / 0 0 / 0 0 / 0 Other: Meal NPO for lunch NPO for supper Percent of Meal Consumed 0% Weight 105.344 kg Blood Glucose* 129 123 111 Patient Weight 10/12/16 23:59 Weight 105.344 kg - General physical appearance well developed, well nourished, no distress - Eyes normal ocular movement - ENT normal mucosa, atraumatic, normocephalic - Neck Neck exam: trachea midline - Respiratory normal respiratory effort, clear to auscultation - Cardiovascular Cardiovascular exam: Present: RRR - Abdomen Abdomen: Present: bowel sounds present, soft, tender (expected post surgical tenderness) - Incision Incision: Present: clean and dry, intact, open (wound vac in place) - Integumentary other (Approximately 5cm x 2 cm open sore on the posterior aspect of her left lower extremity with some surrounding erythema and scant amount of nonpurulent drainage) - Neurologic other (difficult to arouse) - Musculoskeletal other (Edema present bilaterally on the lower extremities) - Psychiatric other (unable to assess at this time.) - Labs 10/12/16 04:19 10/12/16 04:19 Diabetes panel 10/12/16 Range/Units 04:19 Sodium 139 (136-145) mEq/L Potassium 4.6 H (3.5-4.5) mEq/L Chloride 111 H (98-109) mEq/L Carbon Dioxide 19 (19-29) mEq/L BUN 19 (7-20) mg/dL Creatinine 0.80 (0.57-1.11) mg/dL Glucose 114 H (70-99) mg/dL Calcium 8.2 L (8.6-10.8) mg/dL Calcium panel 10/12/16 10/12/16 Range/Units 04:19 04:19 Calcium 8.2 L (8.6-10.8) mg/dL Phosphorus 2.5 (2.3-4.7) mg/dL Pituitary panel 10/12/16 Range/Units 04:19 Sodium 139 (136-145) mEq/L Potassium 4.6 H (3.5-4.5) mEq/L Chloride 111 H (98-109) mEq/L Carbon Dioxide 19 (19-29) mEq/L BUN 19 (7-20) mg/dL Creatinine 0.80 (0.57-1.11) mg/dL Glucose 114 H (70-99) mg/dL Calcium 8.2 L (8.6-10.8) mg/dL Adrenal panel 10/12/16 Range/Units 04:19 Sodium 139 (136-145) mEq/L Potassium 4.6 H (3.5-4.5) mEq/L Chloride 111 H (98-109) mEq/L Carbon Dioxide 19 (19-29) mEq/L BUN 19 (7-20) mg/dL Creatinine 0.80 (0.57-1.11) mg/dL Glucose 114 H (70-99) mg/dL Calcium 8.2 L (8.6-10.8) mg/dL - VTE Documentation of Mechanical Device: Intermittent pneumatic compression device Consult Discharge Plan - Plan Referrals: Nica Pryor, WELDING ROBOT OPERATOR [Primary Care Provider] - - Attending Attestation I examined this patient and my medical decision-making was reviewed with the GRANITE POLISHER MACHINE/PA/Advanced Practice Nurse/Resident Physician. I agree with the documented findings, disposition and treatment plan as described except to the extent set forth below. <Piper Ware - Last Filed: 10/12/16 19:29> Time of Encounter: 12:00 - Assessment and Plan (1) Free intraperitoneal air Current Visit: Yes Status: Resolved (2) HTN (hypertension) Current Visit: Yes Status: Acute restart home medication, stop scheduled lopressor prn BBeta celso Qualifiers: Hypertension type: essential hypertension Qualified Code(s): I10 - Essential (primary) hypertension (3) Diabetes Current Visit: Yes Status: Acute Qualifiers: Diabetes mellitus type: type 2 Diabetes mellitus complication status: with unspecified complications Diabetes mellitus terminal clerk insulin use: without terminal clerk use Qualified Code(s): E11.8 - Type 2 diabetes mellitus with unspecified complications (4) Hypothyroid Current Visit: Yes Status: Acute Qualifiers: Hypothyroidism type: unspecified Qualified Code(s): E03.9 - Hypothyroidism , unspecified (5) Ventral hernia Current Visit: Yes Status: Resolved Qualifiers: Obstruction and gangrene presence: without obstruction or gangrene Qualified Code(s): K43.9 - Ventral hernia without obstruction or gangrene (6) Leukocytosis Current Visit: Yes Status: Acute normal wbc count today, no bands continue abx/diflucan Qualifiers: Leukocytosis type: unspecified Qualified Code(s): D72.829 - Elevated white blood cell count, unspecified (7) Venous ulcer of ankle Current Visit: Yes Status: Acute wrap left leg from toes to below knee with kerlix and coban in addition to previous dressing regimen, to help with edema Qualifiers: Laterality: left Qualified Code(s): 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 (8) Gastric perforation Current Visit: Yes Status: Acute start clears, add carafate continue PPI bid Qualifiers: Gastric ulcer chronicity: acute Qualified Code(s): K25.1 - Acute gastric ulcer with perforation (9) UTI (urinary tract infection) Current Visit: Yes Status: Acute sensitive to zosyn, continue Qualifiers: Urinary tract infection type: site unspecified Hematuria presence: with hematuria Qualified Code(s): N39.0 - Urinary tract infection, site not specified; R31.9 - Hematuria, unspecified Subjective Narrative: patient complains of leg pain especially left leg pain she complains of leg swelling abd pain mostly controlled no nausea or vomiting Objective Vital Signs - Last 8 Hours Temp Pulse Resp BP Pulse Ox 10/12/16 16:53 16 96 10/12/16 15:29 97.8 F 72 16 178/80 96 10/12/16 11:58 98.8 F 76 16 168/82 93 L Intake and Output 10/12/16 10/12/16 10/12/16 07:59 15:59 23:59 Intake Total 1205 / 1205 770 / 770 250 / 250 Output Total 385 / 385 1940 / 1940 Balance 820 / 820 -1170 / -1170 250 / 250 Intake: IV Fluids 1205 / 1205 550 / 550 250 / 250 0.9 % Sodium Chloride 1, 1105 / 1105 346 / 346 250 / 250 000 ML @ 80 mls/hr IVC . [id number] [facility] Rx#: [id number] Magnesium Sulfate 2 GM In 104 / 104 Dextrose 5% 100 ML @ 100 mls/hr IVPB ONCE ONE Rx# :[id number] Zosyn 3.375 GM In 100 / 100 100 / 100 Dextrose 5% (Minibag+) 100 ML 100 ML @ 25 mls/hr IVPB Q8HR [facility] Rx#: [id number] Oral 0 / 0 220 / 220 Output: Catheter 350 / 350 1900 / 1900 Wound Drainage 35 / 35 40 / 40 Abdomen 20 / 20 40 / 40 Right Abdomen 15 / 15 0 / 0 left lower abdomen 0 / 0 0 / 0 Other: Meal REFUSED Weight 105.344 kg Blood Glucose* 111 139 134 Patient Weight 10/12/16 23:59 Weight 105.344 kg - General physical appearance well developed, well nourished, moderate distress, moderate pain - Eyes PERRL, normal ocular movement - ENT atraumatic, normocephalic - Neck Neck exam: trachea midline - Respiratory normal expansion, clear to auscultation - Cardiovascular Cardiovascular exam: Present: RRR - Abdomen Abdomen: Present: bowel sounds present, soft, tender - Incision Incision: Present: clean and dry, intact, open - Integumentary no rash, no growths - Neurologic normal coordination - Musculoskeletal other - Psychiatric oriented to person - Labs 10/12/16 04:19 10/12/16 04:19 Diabetes panel 10/12/16 Range/Units 04:19 Sodium 139 (136-145) mEq/L Potassium 4.6 H (3.5-4.5) mEq/L Chloride 111 H (98-109) mEq/L Carbon Dioxide 19 (19-29) mEq/L BUN 19 (7-20) mg/dL Creatinine 0.80 (0.57-1.11) mg/dL Glucose 114 H (70-99) mg/dL Calcium 8.2 L (8.6-10.8) mg/dL Calcium panel 10/12/16 10/12/16 Range/Units 04:19 04:19 Calcium 8.2 L (8.6-10.8) mg/dL Phosphorus 2.5 (2.3-4.7) mg/dL Pituitary panel 10/12/16 Range/Units 04:19 Sodium 139 (136-145) mEq/L Potassium 4.6 H (3.5-4.5) mEq/L Chloride 111 H (98-109) mEq/L Carbon Dioxide 19 (19-29) mEq/L BUN 19 (7-20) mg/dL Creatinine 0.80 (0.57-1.11) mg/dL Glucose 114 H (70-99) mg/dL Calcium 8.2 L (8.6-10.8) mg/dL Adrenal panel 10/12/16 Range/Units 04:19 Sodium 139 (136-145) mEq/L Potassium 4.6 H (3.5-4.5) mEq/L Chloride 111 H (98-109) mEq/L Carbon Dioxide 19 (19-29) mEq/L BUN 19 (7-20) mg/dL Creatinine 0.80 (0.57-1.11) mg/dL Glucose 114 H (70-99) mg/dL Calcium 8.2 L (8.6-10.8) mg/dL
[2016-10-12] MEDS: Piperacillin/Tazobactam 3.375 GM in D5% in Water (Mini-Bag+) 100 ML IVPB SCH ×2 (07:30→16:12)
[2016-10-12] MEDS: Levothyroxine Sodium 100 MCG VIAL IVP SCH (07:30)
[2016-10-12] MEDS: Pantoprazole 40 MG VIAL IVP SCH ×2 (07:30→21:27)
[2016-10-12] MEDS ORDERED: Magnesium Sulfate 2 GM in D5% in Water 100 ML IVPB ONE (07:42)
[2016-10-12] MEDS: Gabapentin 300 MG CAPSULE PO SCH ×3 (08:21→21:26)
[2016-10-12] MEDS: CHLORZOXAZONE 500 MG PO SCH ×3 (08:22→20:33)
[2016-10-12] MEDS: Lisinopril-HCTZ 20-12.5mg TABLET PO SCH (10:11)
[2016-10-12] MEDS ORDERED: Furosemide 20 MG/2 ML VIAL IVP ONE (11:16)
[2016-10-12] MEDS ORDERED: *HR* LORazepam 2 MG/ML VIAL IVP PRN (11:18)
[2016-10-12] MEDS: *HR* Metoprolol 5 MG/5 ML VIAL IVP PRN (13:25)
[2016-10-12] MEDS: Fluconazole 100 MG/50 ML 100 MG/50 ML BAG IVPB SCH (17:38)
[2016-10-12] MEDS: Sucralfate 1 GM TABLET PO SCH (21:27)
[2016-10-13] MEDS: Piperacillin/Tazobactam 3.375 GM in D5% in Water (Mini-Bag+) 100 ML IVPB SCH ×4 (00:50→18:23)
[2016-10-13] MEDS: Insulin LISPRO 300 UNITS/3 ML VIAL SQ SCH ×4 (01:22→17:38)
[2016-10-13] MEDS: *HR* HYDROmorphone (PF) 1 MG/ML SYRINGE IVP PRN ×2 (03:41→15:16)
[2016-10-13] MEDS: Ipratropium/Albuterol Neb 3 ML IH SCH ×4 (03:52→21:02)
[2016-10-13] MEDS: *HR* Metoprolol 5 MG/5 ML VIAL IVP PRN ×2 (04:59→12:34)
[2016-10-13 05:56] LABS: Basophils # 0.1 K/mcL (0.0-0.2); Basophils % 0.8 %; Eosinophils # 0.5 K/mcL (0.0-0.6); Eosinophils % 6.4 %; Hematocrit 28.4 % (35.3-44.9); Hemoglobin 8.5 g/dL (11.5-15.4); Immature Granulocytes % 0.7 % (0-4); Lymphocytes % 13.2 %; Mean Corpuscular HGB Conc 29.9 g/dL (31.6-35.5); Mean Corpuscular Hemoglobin 28.3 pg (28.0-33.3); Mean Corpuscular Volume 94.7 fL (83.0-100.0); Mean Platelet Volume 11.2 fL (9.4-12.4); Monocytes # 0.5 K/mcL (0.0-1.3); Neutrophils # 5.6 K/mcL (1.6-8.9); Platelet Count 241 K/mcL (140-400); Red Cell Distribution Width 14.6 % (11.5-14.5); Segmented Neutrophils % 72.9 %
[2016-10-13 06:11] LABS: BUN/Creatinine Ratio 19 (6-26); Blood Urea Nitrogen 14 mg/dL (7-20); Calcium 8.4 mg/dL (8.6-10.8); Carbon Dioxide 20 mEq/L (19-29); Chloride 111 mEq/L (98-109); Glucose 136 mg/dL (70-99); Osmolality,Calculated 289 (280-300); Potassium 4.1 mEq/L (3.5-4.5); Sodium 138 mEq/L (136-145); eGFR For African Americans > 60 (> 60); eGFR For Non-African Americans > 60 (> 60)
[2016-10-13 06:28] LABS: Platelet Estimate Normal (Normal)
[2016-10-13 06:59] LABS: BUN/Creatinine Ratio 18 (6-26); Blood Urea Nitrogen 14 mg/dL (7-20); Calcium 8.3 mg/dL (8.6-10.8); Carbon Dioxide 21 mEq/L (19-29); Chloride 110 mEq/L (98-109); Glucose 128 mg/dL (70-99); Osmolality,Calculated 288 (280-300); Potassium 4.1 mEq/L (3.5-4.5); Sodium 138 mEq/L (136-145); eGFR For African Americans > 60 (> 60); eGFR For Non-African Americans > 60 (> 60)
[2016-10-13 07:23] LABS: Basophils # 0.1 K/mcL (0.0-0.2); Basophils % 0.8 %; Eosinophils # 0.5 K/mcL (0.0-0.6); Eosinophils % 6.4 %; Hematocrit 27.9 % (35.3-44.9); Hemoglobin 8.7 g/dL (11.5-15.4); Immature Granulocytes % 0.5 % (0-4); Lymphocytes # 1.1 K/mcL (0.6-4.6); Lymphocytes % 14.3 %; Mean Corpuscular HGB Conc 31.2 g/dL (31.6-35.5); Mean Corpuscular Hemoglobin 28.9 pg (28.0-33.3); Mean Corpuscular Volume 92.7 fL (83.0-100.0); Mean Platelet Volume 10.5 fL (9.4-12.4); Monocytes # 0.4 K/mcL (0.0-1.3); Monocytes % 5.8 %; Neutrophils # 5.4 K/mcL (1.6-8.9); Platelet Count 290 K/mcL (140-400); Red Blood Count 3.01 M/mcL (3.82-4.97); Red Cell Distribution Width 14.6 % (11.5-14.5); Segmented Neutrophils % 72.2 %
--- NOTE | 2016-10-13 07:36 | General Surgery Progress Note ---
<Mike Gary - Last Filed: 10/13/16 16:17> Date of Encounter: 10/13/16 Time of Encounter: 06:50 - Assessment and Plan (1) Free intraperitoneal air Status: Resolved Post op day #5 status post exploratory laparotomy, gastric perforation wedge resection, ventral hernia repair, and placement of wound vac. Continue supplemental oxygen as needed. Continue clear liquid diet to be given while the patient is sitting up in a chair. If patient tolerates dinner, will advance to diabetic diet tomorrow. Discontinue IV fluids, patient tolerating PO fluids well. Continue GI and DVT prophylaxis. Colace 100mg BID scheduled. (2) Gastric perforation Status: Resolved Continue pain control. Protonix BID. Continue clear liquid diet while sitting up in chair. Will assess for how the patient is able to tolerate diet. Qualifiers: Gastric ulcer chronicity: acute Qualified Code(s): K25.1 - Acute gastric ulcer with perforation (3) Diabetes Status: Acute Hold home medications. Continue to monitor and control with low-dose SSI. Qualifiers: Diabetes mellitus type: type 2 Diabetes mellitus complication status: with unspecified complications Diabetes mellitus moth exterminator insulin use: without moth exterminator use Qualified Code(s): E11.8 - Type 2 diabetes mellitus with unspecified complications (4) HTN (hypertension) Status: Acute Elevated today at 169/74. Lopressor 5mg IV PRN ordered, was given once at 5AM today. Restarted on home medications for blood pressure control yesterday. Continue to monitor, consider increasing scheduled dose. Qualifiers: Hypertension type: essential hypertension Qualified Code(s): I10 - Essential (primary) hypertension (5) Hypothyroid Status: Acute Continue IV syntroid. Qualifiers: Hypothyroidism type: unspecified Qualified Code(s): E03.9 - Hypothyroidism , unspecified (6) Leukocytosis Status: Acute Resolved Continue Zosyn Day #6 Qualifiers: Leukocytosis type: unspecified Qualified Code(s): D72.829 - Elevated white blood cell count, unspecified (7) Ventral hernia Status: Resolved Post op day #5 status post exploratory laparotomy, gastric perforation wedge resection, ventral hernia repair, and placement of wound vac. Wound vac changes scheduled M, W, F. Qualifiers: Obstruction and gangrene presence: without obstruction or gangrene Qualified Code(s): K43.9 - Ventral hernia without obstruction or gangrene (8) UTI (urinary tract infection) Status: Acute Patient is on Zosyn. White count improving. Culture demonstrates sensitivity to Zosyn. Qualifiers: Urinary tract infection type: site unspecified Hematuria presence: with hematuria Qualified Code(s): N39.0 - Urinary tract infection, site not specified; R31.9 - Hematuria, unspecified (9) Venous ulcer of ankle Status: Acute Pain is improved greatly this morning. Continue Neurotin. Continues to have some lower extremity edema, which is minimally improved from yesterday. One dose IV lasix 20mg today. Continue wound dressings. Kerlix and coban added to dressings from toes to knee yesterday. 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 She initially stated that she was not having any pain, but complains of pain as I examined her surgical wound. She denies nausea, vomiting, and states she has not passed gas or had a bowel movement yet. Objective Vital Signs - Last 8 Hours Temp Pulse Resp BP Pulse Ox 10/13/16 03:52 20 89 L 10/13/16 03:36 98.4 F 78 16 169/74 96 10/13/16 00:51 97.4 F L 77 177/92 10/12/16 23:43 97.8 F 80 16 170/84 93 L Intake and Output 10/12/16 10/12/16 10/13/16 15:59 23:59 07:59 Intake Total 770 / 770 649 / 649 Output Total 1940 / 1940 650 / 650 230 / 230 Balance -1170 / -1170 -1 / -1 -230 / -230 Intake: IV Fluids 550 / 550 649 / 649 0.9 % Sodium Chloride 1, 346 / 346 549 / 549 000 ML @ 80 mls/hr IVC . [id number] [facility] Rx#: [id number] Magnesium Sulfate 2 GM In 104 / 104 Dextrose 5% 100 ML @ 100 mls/hr IVPB ONCE ONE Rx# :[id number] Zosyn 3.375 GM In 100 / 100 100 / 100 Dextrose 5% (Minibag+) 100 ML 100 ML @ 25 mls/hr IVPB Q8HR [facility] Rx#: [id number] Oral 220 / 220 0 / 0 Output: Urine 0 / 0 Catheter 1900 / 1900 650 / 650 200 / 200 Wound Drainage 40 / 40 30 / 30 Abdomen 40 / 40 20 / 20 Right Abdomen 0 / 0 10 / 10 left lower abdomen 0 / 0 Other: Meal REFUSED Weight 105.1 kg Blood Glucose* 139 151 128 Patient Weight 10/13/16 23:59 Weight 105.1 kg - General physical appearance well nourished, no distress - Eyes normal ocular movement - ENT normal mucosa, atraumatic, normocephalic - Neck Neck exam: trachea midline - Respiratory normal respiratory effort, clear to auscultation - Cardiovascular Cardiovascular exam: Present: RRR Addtional Comments: Lower extremity edema - Abdomen Abdomen: Present: bowel sounds present, soft, tender (expected post operative tenderness at midline surgical wound.) - Incision Incision: Present: clean and dry, intact, open (wound vac in place) - Integumentary no rash - Neurologic CN 2-12 grossly intact - Psychiatric oriented to person - Labs 10/13/16 06:30 10/13/16 06:30 Diabetes panel 10/13/16 10/13/16 Range/Units 05:21 06:30 Sodium 138 138 (136-145) mEq/L Potassium 4.1 4.1 (3.5-4.5) mEq/L Chloride 111 H 110 H (98-109) mEq/L Carbon Dioxide 20 21 (19-29) mEq/L BUN 14 14 (7-20) mg/dL Creatinine 0.75 0.76 (0.57-1.11) mg/dL Glucose 136 H 128 H (70-99) mg/dL Calcium 8.4 L 8.3 L (8.6-10.8) mg/dL Calcium panel 10/13/16 10/13/16 Range/Units 05:21 06:30 Calcium 8.4 L 8.3 L (8.6-10.8) mg/dL Pituitary panel 10/13/16 10/13/16 Range/Units 05:21 06:30 Sodium 138 138 (136-145) mEq/L Potassium 4.1 4.1 (3.5-4.5) mEq/L Chloride 111 H 110 H (98-109) mEq/L Carbon Dioxide 20 21 (19-29) mEq/L BUN 14 14 (7-20) mg/dL Creatinine 0.75 0.76 (0.57-1.11) mg/dL Glucose 136 H 128 H (70-99) mg/dL Calcium 8.4 L 8.3 L (8.6-10.8) mg/dL Adrenal panel 10/13/16 10/13/16 Range/Units 05:21 06:30 Sodium 138 138 (136-145) mEq/L Potassium 4.1 4.1 (3.5-4.5) mEq/L Chloride 111 H 110 H (98-109) mEq/L Carbon Dioxide 20 21 (19-29) mEq/L BUN 14 14 (7-20) mg/dL Creatinine 0.75 0.76 (0.57-1.11) mg/dL Glucose 136 H 128 H (70-99) mg/dL Calcium 8.4 L 8.3 L (8.6-10.8) mg/dL - VTE Documentation of Mechanical Device: Intermittent pneumatic compression device Consult Discharge Plan - Plan Additional Instructions: #1 may shower, no tub bath #2 wound care- wound vac to midline (medium black foam at 125mmHG continuous suction, change every MWF). Next change 10/17/16 #3 LLE wound- wash left foot with soap and water daily, apply collagen to the open wound, cover with 4x4 gauze, wrap with kerlix from toes to knee and secure with tape, change daily #4 De La O catheter to SD- catheter care daily and prn. Change catheter every 30 days #5 Turn every 2 hours #6 PT/OT daily #7 Allevyn to sacral region- change every 72 hours and prn if soiled. Referrals: Piper Ware MD [Partnered Physician] - 10/26/16 1:50 pm (surgery follow-up ) Nica Pryor CNP [Primary Care Provider] - Prescriptions: OxyCODONE/APAP 5/325 [Percocet 5/325 MG] 1 each PO Q4HR PRN #30 tablet PRN Reason: Pain Amoxicillin/Clavulanate [Augmentin] 875 mg PO BIDWM #14 tablet Omeprazole [PriLOSEC] 40 mg PO DAILY #30 cap Sucralfate [Carafate] 1 gm PO DA #120 tablet - Attending Attestation I examined this patient and my medical decision-making was reviewed with the FIELD PIPELINES SUPERVISOR/PA/Advanced Practice Nurse/Resident Physician. I agree with the documented findings, disposition and treatment plan as described except to the extent set forth below. <Piper Ware - Last Filed: 10/18/16 19:22> Time of Encounter: 12:00 - Assessment and Plan (1) Free intraperitoneal air Status: Resolved (2) HTN (hypertension) Status: Chronic Qualifiers: Hypertension type: essential hypertension Qualified Code(s): I10 - Essential (primary) hypertension (3) Diabetes Status: Chronic Qualifiers: Diabetes mellitus type: type 2 Diabetes mellitus complication status: with unspecified complications Diabetes mellitus moth exterminator insulin use: without moth exterminator use Qualified Code(s): E11.8 - Type 2 diabetes mellitus with unspecified complications (4) Hypothyroid Status: Chronic resume po synthroid upon DC Qualifiers: Hypothyroidism type: unspecified Qualified Code(s): E03.9 - Hypothyroidism , unspecified (5) Ventral hernia Status: Resolved Qualifiers: Obstruction and gangrene presence: without obstruction or gangrene Qualified Code(s): K43.9 - Ventral hernia without obstruction or gangrene (6) Leukocytosis Status: Acute Qualifiers: Leukocytosis type: unspecified Qualified Code(s): D72.829 - Elevated white blood cell count, unspecified (7) Venous ulcer of ankle Status: Chronic Qualifiers: Laterality: left Qualified Code(s): 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 (8) Gastric perforation Status: Resolved tolerating soft diet pain controlled with po medication restarted home meds y DC FREDY drain, serous drainage Qualifiers: Gastric ulcer chronicity: acute Qualified Code(s): K25.1 - Acute gastric ulcer with perforation (9) UTI (urinary tract infection) Status: Acute serratia uti on zosyn, will dc with po antibiotic Qualifiers: Urinary tract infection type: site unspecified Hematuria presence: with hematuria Qualified Code(s): N39.0 - Urinary tract infection, site not specified; R31.9 - Hematuria, unspecified Objective - General physical appearance well developed, well nourished, obese - Eyes PERRL, normal ocular movement - ENT normal mucosa, normocephalic - Neck Neck exam: trachea midline - Respiratory clear to auscultation - Cardiovascular Cardiovascular exam: Present: RRR - Abdomen Abdomen: Present: bowel sounds present, tender - Incision Incision: Present: clean and dry, intact, open - Integumentary no rash - Neurologic CN 2-12 grossly intact - Musculoskeletal normal gait, normal posture - Psychiatric oriented to time, oriented to person, memory intact - Labs 10/14/16 05:41 10/14/16 12:16 - Attending Attestation I examined this patient and my medical decision-making was reviewed with the FIELD PIPELINES SUPERVISOR/PA/Advanced Practice Nurse/Resident Physician. I agree with the documented findings, disposition and treatment plan as described except to the extent set forth below.
[2016-10-13] MEDS: Sucralfate 1 GM TABLET PO SCH ×4 (08:21→22:13)
[2016-10-13] MEDS: *HR* HYDROcodone/Acet 5/325 mg TABLET PO PRN ×2 (08:27→12:34)
[2016-10-13] MEDS: 0.9 % Sodium Chloride 1,000 ML IVC SCH (10:44)
[2016-10-13] MEDS: Pantoprazole 40 MG VIAL IVP SCH ×2 (10:46→22:13)
[2016-10-13] MEDS: Levothyroxine Sodium 100 MCG VIAL IVP SCH (10:46)
[2016-10-13] MEDS: Lisinopril-HCTZ 20-12.5mg TABLET PO SCH (10:47)
[2016-10-13] MEDS: CHLORZOXAZONE 500 MG PO SCH ×3 (10:48→22:20)
[2016-10-13] MEDS: Gabapentin 300 MG CAPSULE PO SCH ×3 (10:48→22:13)
[2016-10-13] MEDS ORDERED: *HR* OxyCODONE/APAP 5/325 TABLET PO PRN (16:14)
[2016-10-13] MEDS: Furosemide 20 MG/2 ML VIAL IVP ONE ×2 (17:39→18:23)
[2016-10-13] MEDS: Fluconazole 100 MG/50 ML 100 MG/50 ML BAG IVPB SCH (22:12)
[2016-10-14] MEDS: Insulin LISPRO 300 UNITS/3 ML VIAL SQ SCH ×3 (00:09→13:57)
[2016-10-14] MEDS: Piperacillin/Tazobactam 3.375 GM in D5% in Water (Mini-Bag+) 100 ML IVPB SCH ×3 (00:10→15:38)
[2016-10-14] MEDS: *HR* HYDROmorphone (PF) 1 MG/ML SYRINGE IVP PRN (04:40)
[2016-10-14] MEDS: Ipratropium/Albuterol Neb 3 ML IH SCH ×3 (05:05→16:06)
[2016-10-14 07:01] LABS: Basophils # 0.1 K/mcL (0.0-0.2); Basophils % 0.6 %; Eosinophils # 0.4 K/mcL (0.0-0.6); Eosinophils % 5.7 %; Hematocrit 27.6 % (35.3-44.9); Hemoglobin 8.8 g/dL (11.5-15.4); Immature Granulocytes % 1.6 % (0-4); Lymphocytes # 1.1 K/mcL (0.6-4.6); Lymphocytes % 13.8 %; Mean Corpuscular HGB Conc 31.9 g/dL (31.6-35.5); Mean Corpuscular Hemoglobin 29.3 pg (28.0-33.3); Mean Platelet Volume 11.3 fL (9.4-12.4); Monocytes # 0.5 K/mcL (0.0-1.3); Neutrophils # 5.5 K/mcL (1.6-8.9); Nucleated Red Blood Cells 0.4 /100 WBC (0); Platelet Count 278 K/mcL (140-400); Red Cell Distribution Width 14.6 % (11.5-14.5); Segmented Neutrophils % 71.3 %
[2016-10-14 07:16] LABS: BUN/Creatinine Ratio 17 (6-26); Blood Urea Nitrogen 13 mg/dL (7-20); Calcium 8.4 mg/dL (8.6-10.8); Carbon Dioxide 20 mEq/L (19-29); eGFR For African Americans > 60 (> 60); eGFR For Non-African Americans > 60 (> 60)
[2016-10-14 07:19] LABS: Chloride 108 mEq/L (98-109); Glucose 100 mg/dL (70-99); Osmolality,Calculated 282 (280-300); Sodium 136 mEq/L (136-145)
[2016-10-14] MEDS: Pantoprazole 40 MG VIAL IVP SCH (08:32)
[2016-10-14] MEDS: Levothyroxine Sodium 100 MCG VIAL IVP SCH (08:32)
[2016-10-14] MEDS: Lisinopril-HCTZ 20-12.5mg TABLET PO SCH (08:33)
[2016-10-14] MEDS: CHLORZOXAZONE 500 MG PO SCH ×2 (08:33→13:56)
[2016-10-14] MEDS: Sucralfate 1 GM TABLET PO SCH ×3 (08:33→15:38)
[2016-10-14] MEDS: Gabapentin 300 MG CAPSULE PO SCH ×2 (08:33→15:38)
--- NOTE | 2016-10-14 11:09 | Discharge Summary ---
Date of Encounter: 10/14/16 Time of Encounter: 11:00 - Discharge Diagnosis (1) Gastric perforation Priority: Primary Status: Resolved Qualifiers: Gastric ulcer chronicity: acute Qualified Code(s): K25.1 - Acute gastric ulcer with perforation (2) Ventral hernia Priority: Secondary Status: Resolved Qualifiers: Obstruction and gangrene presence: without obstruction or gangrene Qualified Code(s): K43.9 - Ventral hernia without obstruction or gangrene (3) HTN (hypertension) Priority: Secondary Status: Chronic Qualifiers: Hypertension type: essential hypertension Qualified Code(s): I10 - Essential (primary) hypertension (4) Hypothyroid Priority: Secondary Status: Chronic Qualifiers: Hypothyroidism type: unspecified Qualified Code(s): E03.9 - Hypothyroidism , unspecified (5) Venous ulcer of ankle Priority: Secondary Status: Chronic Qualifiers: Laterality: left Qualified Code(s): 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 (6) Diabetes Priority: Secondary Status: Chronic Qualifiers: Diabetes mellitus type: type 2 Diabetes mellitus complication status: with unspecified complications Diabetes mellitus group home insulin use: without desktop support associate use Qualified Code(s): E11.8 - Type 2 diabetes mellitus with unspecified complications (7) Physical deconditioning Priority: Secondary Status: Chronic - Discharge Medications Prescriptions: OxyCODONE/APAP 5/325 [Percocet 5/325 MG] 1 each PO Q4HR PRN #30 tablet PRN Reason: Pain Amoxicillin/Clavulanate [Augmentin] 875 mg PO BIDWM #14 tablet Omeprazole [PriLOSEC] 40 mg PO DAILY #30 cap Sucralfate [Carafate] 1 gm PO QIDAC #120 tablet Home Medications: Ascorbate Calcium [Vitamin C] 500 mg PO DAILY 10/08/16 [History] Chlorzoxazone 500 mg PO TID 10/08/16 [History] Doxazosin [Cardura] 8 mg PO DAILY 10/08/16 [History] Folic Acid/Vit Bcomp,C [Dialyvite Tablet] 1 tab PO DAILY 10/08/16 [History] Gabapentin [Neurontin] 600 mg PO TID 10/08/16 [History] Glucosamn/Condroitn/C/Mn/[place] [[facility] Glucosamine Chondroit Cplt] 1 tab PO DAILY 10/08/16 [History] HYDROcodone/Acet 5/325 mg [[place] 5-325 mg] 1 tab PO Q4H PRN 10/08/16 [History] Levothyroxine [Synthroid] 100 mcg PO DAILY 10/08/16 [History] Lisinopril-HCTZ 20-12.5 [Prinzide 20-12.5] 1 tab PO DAILY 10/08/16 [History] Lysine [l-Lysine] 1,000 mg PO DAILY 10/08/16 [History] Meloxicam [Mobic] 7.5 mg PO BID 10/08/16 [History] Metformin [Glucophage] 500 mg PO BID 10/08/16 [History] Nystatin POWDER [Nystop] 1 appl TP BID 10/08/16 [History] Silver Sulfadiazine Cream [Silvadene] 1 appl TP AD 10/08/16 [History] Amoxicillin/Clavulanate [Augmentin] 875 mg PO BIDWM #14 tablet 10/14/16 [Rx] Docusate [Colace] 100 mg PO BID capsule 10/14/16 [Rx] Omeprazole [PriLOSEC] 40 mg PO DAILY #30 cap 10/14/16 [Rx] OxyCODONE/APAP 5/325 [Percocet 5/325 MG] 1 each PO Q4HR PRN #30 tablet 10/14/16 [Rx] Sucralfate [Carafate] 1 gm PO QIDAC #120 tablet 10/14/16 [Rx] Allergies/Adverse Reactions: Allergies cephalexin [From Keflex] Allergy (Verified 10/08/16 14:56) Hives sulfamethoxazole [From Septra] Allergy (Verified 10/08/16 14:56) Hives trimethoprim [From Septra] Allergy (Verified 10/08/16 14:56) Hives General Surgery Exam Initial Vital Signs Temp Pulse Resp BP Pulse Ox 98.8 F 91 16 151/65 94 L 10/08/16 14:49 10/08/16 14:49 10/08/16 14:49 10/08/16 14:49 10/08/16 14:49 - General physical appearance well developed, well nourished, no distress, moderate pain - Eyes normal ocular movement - ENT normal mucosa, atraumatic, normocephalic - Neck trachea midline - Respiratory normal respiratory effort, clear to auscultation - Cardiovascular Cardiovascular exam: Present: RRR, 15, 16 - Abdomen Abdomen general surgery: Present: bowel sounds present, soft, tender (expected post-operative tenderness), wound (Midline with wound vac in place, serous drainage noted) - Incision Incision: Present: serous, open - Integumentary Integumentary general surgery: Present: warm and dry, other (LLE with dressing intact) - Neurologic Present: CN 2-12 grossly intact - Musculoskeletal Present: other (severe physical deconditioning) - Psychiatric Psychiatric general surgery: Present: appropriate, oriented to person, oriented to place, oriented to time, speech is normal, memory intact Date of admission: 10/08/16 17:49 Primary care physician: Nica Pryor CNP Consults: 10/10/16 10:55 Consult to Physical Therapy [CONS] Routine Comment: Evaluate, develop and implement POC OT [Consult to Occupational Therapy] [CONS] Routine Comment: Evaluate, develop and implement POC 10/11/16 09:01 Consult to Brick Maker [CONS] Routine Reason for SW Consult: discharge planning; came from [place] in [place] ( was doing rehab) Discharging clinician: Piper Ware ([facility]) Anticipated date of discharge: 10/14/16 - Patient Status Disposition: Transfer Inpatient Rehab Fac Condition: Good Functional capacity at discharge: bed bound Overall status at discharge: patient is progressing back to baseline - Discharge Instructions Follow Up With: Nica Pryor CNP [Primary Care Provider] - Piper Ware MD [Partnered Physician] - 10/26/16 1:50 pm (surgery follow-up ) Additional Instructions: #1 may shower, no tub bath #2 wound care- wound vac to midline (medium black foam at 125mmHG continuous suction, change every MWF). Next change 10/17/16 #3 LLE wound- wash left foot with soap and water daily, apply collagen to the open wound, cover with 4x4 gauze, wrap with kerlix from toes to knee and secure with tape, change daily #4 De La O catheter to SD- catheter care daily and prn. Change catheter every 30 days #5 Turn every 2 hours #6 PT/OT daily #7 Allevyn to sacral region- change every 72 hours and prn if soiled. - Diet and Activity Diet: other (Mechanical soft diet with Ensure HP TID with meals) - Hospital Course Hospital course: Ms. Covarrubias is a 76 year old female presented to the ED with acute onset of abdominal pain. Her radiological work-up showed evidence of a perforated viscous. She was taken to the operating room with Dr. Ware and underwent a Exploratory laparotomy, gastric perforation wedge resection, ventral hernia repair, placement of wound vac. She was found to have a gastric perforation and ventral hernia. She remained NPO after surgery with NG tube decompression. She was also maintained on IV antibiotics. She has a wound vac to her midline which is being changed every MWF. Her NG tube was removed and she was advanced to clear liquids on POD #4. She has tolerated this without difficulty. She has been advanced to full liquids and now mechanical soft and is tolerating it without difficulty. Her post-surgical pain has significantly improved. Her vital signs are stable and she is afebrile. She is non-ambulatory and has been for the past 2 years. She does have a chronic wound to her LLE in which dressing changes have been maintained in the hospital. We will begin discharge planning at this time and plan for outpatient follow-up in the next 10-14 days. - Time Spent with Patient Total time spent providing and/or coordinating discharge services: Greater than 30 minutes Labs on day of discharge: Labs from last 24 hours 10/14/16 10/14/16 10/14/16 05:51 05:41 05:41 WBC 7.7 RBC 3.00 L Hgb 8.8 L Hct 27.6 L MCV 92.0 MCH 29.3 MCHC 31.9 RDW 14.6 H Plt Count 278 MPV 11.3 Immature Gran % 1.6 Seg Neutrophils % 71.3 Lymphocytes % 13.8 Monocytes % 7.0 Eosinophils % 5.7 Basophils % 0.6 Neutrophils # 5.5 Lymphocytes # 1.1 Monocytes # 0.5 Eosinophils # 0.4 Basophils # 0.1 Nucleated RBCs/100 WBC 0.4 H Sodium 136 Potassium 5.0 H Chloride 108 Carbon Dioxide 20 BUN 13 Creatinine 0.76 Est GFR ( Amer) > 60 Est GFR (Non-Af Amer) > 60 BUN/Creatinine Ratio 17 Glucose 100 H POC Glucose 106 H Calculated Osmolality 282 Calcium 8.4 L 10/13/16 10/13/16 10/13/16 23:15 17:04 11:57 WBC RBC Hgb Hct MCV MCH MCHC RDW Plt Count MPV Immature Gran % Seg Neutrophils % Lymphocytes % Monocytes % Eosinophils % Basophils % Neutrophils # Lymphocytes # Monocytes # Eosinophils # Basophils # Nucleated RBCs/100 WBC Sodium Potassium Chloride Carbon Dioxide BUN Creatinine Est GFR ( Amer) Est GFR (Non-Af Amer) BUN/Creatinine Ratio Glucose POC Glucose 165 H 162 H 193 H Calculated Osmolality Calcium 10/12/16 17:30 WBC RBC Hgb Hct MCV MCH MCHC RDW Plt Count MPV Immature Gran % Seg Neutrophils % Lymphocytes % Monocytes % Eosinophils % Basophils % Neutrophils # Lymphocytes # Monocytes # Eosinophils # Basophils # Nucleated RBCs/100 WBC Sodium Potassium Chloride Carbon Dioxide BUN Creatinine Est GFR ( Amer) Est GFR (Non-Af Amer) BUN/Creatinine Ratio Glucose POC Glucose 134 H Calculated Osmolality Calcium - Impressions ITS Impressions Chest X-Ray 10/08/16 21:00 IMPRESSION: The endotracheal and nasogastric tubes are in satisfactory position. Mild patchy right greater than left bilateral airspace disease. Prominence of the ascending aorta for which mild aneurysm is not excluded. D/ / Lance Reed MD / Lance Reed MD Interpreting Provider: Lance Reed MD Chest X-Ray 10/09/16 07:00 IMPRESSION: Patchy right greater than left airspace disease may represent multifocal pneumonia versus pulmonary edema. Stable examination with stable lines and tubes. D/ / Octaviano Post MD / Octaviano Post MD Interpreting Provider: Octaviano Post MD - Attending Attestation I examined this patient and my medical decision-making was reviewed with the ANAESTHETIC TECHNICIAN/PA/Advanced Practice Nurse/Resident Physician. I agree with the documented findings, disposition and treatment plan as described except to the extent set forth below.
--- NOTE | 2016-10-14 11:37 | Physician Discharge Referral ---
ExtendedCare Referral Info Transfer To: Inpatient rehabilitation Facility Provider in Charge: Dr. Piper Ware Provider in Charge after Transfer: Other (Dr. Piper Ware for surgery needs) Institutional Level of Care: Skilled - Diagnosis (1) Gastric perforation Priority: Primary Status: Resolved (2) Ventral hernia Priority: Secondary Status: Resolved (3) HTN (hypertension) Priority: Secondary Status: Chronic (4) Hypothyroid Priority: Secondary Status: Chronic (5) Venous ulcer of ankle Priority: Secondary Status: Chronic (6) Diabetes Priority: Secondary Status: Chronic (7) Physical deconditioning Priority: Secondary Status: Chronic Expected Duration of Placement: greater than 30 days Prognosis: Good Aware of Diagnosis: Patient Aware of Prognosis: Patient - Transfer Medications Prescriptions: OxyCODONE/APAP 5/325 [Percocet 5/325 MG] 1 each PO Q4HR PRN #30 tablet PRN Reason: Pain Amoxicillin/Clavulanate [Augmentin] 875 mg PO BIDWM #14 tablet Omeprazole [PriLOSEC] 40 mg PO DAILY #30 cap Sucralfate [Carafate] 1 gm PO QIDAC #120 tablet Home Medications: Ascorbate Calcium [Vitamin C] 500 mg PO DAILY 10/08/16 [History] Chlorzoxazone 500 mg PO TID 10/08/16 [History] Doxazosin [Cardura] 8 mg PO DAILY 10/08/16 [History] Folic Acid/Vit Bcomp,C [Dialyvite Tablet] 1 tab PO DAILY 10/08/16 [History] Gabapentin [Neurontin] 600 mg PO TID 10/08/16 [History] Glucosamn/Condroitn/C/Mn/[place] [[facility] Glucosamine Chondroit Cplt] 1 tab PO DAILY 10/08/16 [History] HYDROcodone/Acet 5/325 mg [[place] 5-325 mg] 1 tab PO Q4H PRN 10/08/16 [History] Levothyroxine [Synthroid] 100 mcg PO DAILY 10/08/16 [History] Lisinopril-HCTZ 20-12.5 [Prinzide 20-12.5] 1 tab PO DAILY 10/08/16 [History] Lysine [l-Lysine] 1,000 mg PO DAILY 10/08/16 [History] Meloxicam [Mobic] 7.5 mg PO BID 10/08/16 [History] Metformin [Glucophage] 500 mg PO BID 10/08/16 [History] Nystatin POWDER [Nystop] 1 appl TP BID 10/08/16 [History] Silver Sulfadiazine Cream [Silvadene] 1 appl TP AD 10/08/16 [History] Amoxicillin/Clavulanate [Augmentin] 875 mg PO BIDWM #14 tablet 10/14/16 [Rx] Docusate [Colace] 100 mg PO BID capsule 10/14/16 [Rx] Omeprazole [PriLOSEC] 40 mg PO DAILY #30 cap 10/14/16 [Rx] OxyCODONE/APAP 5/325 [Percocet 5/325 MG] 1 each PO Q4HR PRN #30 tablet 10/14/16 [Rx] Sucralfate [Carafate] 1 gm PO QIDAC #120 tablet 10/14/16 [Rx] Allergies/Adverse Reactions: Allergies cephalexin [From Keflex] Allergy (Verified 10/08/16 14:56) Hives sulfamethoxazole [From Septra] Allergy (Verified 10/08/16 14:56) Hives trimethoprim [From Septra] Allergy (Verified 10/08/16 14:56) Hives - Respiratory Orders Oxygen / L per min (2-3L per nasal cannula) - Ancillary Orders May use pressure relief devices daily prn, May consult with Dentist, Dish Cloth Inspector, Pediatric Physician Assistant PRN - Rehabiliation Orders Rehab Potential: Fair Rehab Orders: ROM Exercises, Evaluation for Physical Therapy, Evaluation for Occupational Therapy - Treatments Skin tear care topically daily PRN per policy List/Other: #1 may shower, no tub bath #2 wound care- wound vac to midline (medium black foam at 125mmHG continuous suction, change every MWF). Next change 10/17/16 #3 LLE wound- wash left foot with soap and water daily, apply collagen to the open wound, cover with 4x4 gauze, wrap with kerlix from toes to knee and secure with tape, change daily #4 De La O catheter to SD- catheter care daily and prn. Change catheter every 30 days #5 Turn every 2 hours #6 PT/OT daily - Diet Orders Mechanical Soft House Supplement per Dietary: Ensure HP TID with meals CERTIFICATION: I certify that the transfer of the above named patient to an Extended Care Facility is necessary for the continuing treatment of the diagnosis listed. The above information is true and accurate reflection of patient's current condition. Confidential - Redisclosure prohibited without a patient's written consent.
[2016-10-14 14:34] VITALS: BP 153/66
== END 2016-10-14 17:02 | DRG 327 ==
LOC: EMEROO 14:48 → 3ANU 17:49 → ICNU 18:47 → 3ANU 10-10 11:42
PROVIDERS: ADMIT Surgery; ATTEND Surgery

== ENCOUNTER 2016-11-20 10:47 | Inpatient (IN) ==
--- NOTE | 2016-11-20 10:52 | Emergency Department Note ---
Disposition Clinical Impression: Lower GI bleed, Anemia due to GI blood loss Disposition: Admitted As Inpatient Condition: Good General Adult HPI - General Chief complaint: ED GI Bleed Stated complaint: GI bleed Time Seen by Provider: 11/20/16 10:51 - Related Data Home Medications Medication Instructions Recorded Confirmed Ascorbate Calcium [Vitamin C] 500 mg PO DAILY 10/08/16 11/20/16 Chlorzoxazone 500 mg PO TID 10/08/16 11/20/16 Doxazosin [Cardura] 8 mg PO DAILY 10/08/16 11/20/16 Gabapentin [Neurontin] 600 mg PO TID 10/08/16 11/20/16 HYDROcodone/Acet 5/325 mg [[place] 1 tab PO Q4H PRN 10/08/16 11/20/16 5-325 mg] Levothyroxine [Synthroid] 100 mcg PO QAM 10/08/16 11/20/16 Lisinopril-HCTZ 20-12.5 [Prinzide 1 tab PO DAILY 10/08/16 11/20/16 20-12.5] Lysine [l-Lysine] 1,000 mg PO DAILY 10/08/16 11/20/16 Meloxicam [Mobic] 7.5 mg PO BID 10/08/16 11/20/16 Metformin [Glucophage] 500 mg PO BID 10/08/16 11/20/16 Nystatin POWDER [Nystop] 1 appl TP BID 10/08/16 11/20/16 Silver Sulfadiazine Cream 1 appl TP DAILY 10/08/16 11/20/16 [Silvadene] Folic Acid/Vit Bcomp,C [Renal 0.8 mg PO DAILY 11/20/16 11/20/16 Vitamin Tablet] Glucosamine Sulfate 1,000 mg PO DAILY 11/20/16 11/20/16 Previous Rx's Medication Instructions Recorded Docusate [Colace] 100 mg PO BID capsule 10/14/16 Omeprazole [PriLOSEC] 40 mg PO DAILY #30 cap 10/14/16 OxyCODONE/APAP 5/325 [Percocet 1 each PO Q4HR PRN #30 tablet 10/14/16 5/325 MG] Sucralfate [Carafate] 1 gm PO QIDAC #120 tablet 10/14/16 Allergies Allergy/AdvReac Type Severity Reaction Status Date / Time cephalexin [From Keflex] Allergy Hives Verified 11/20/16 10:50 sulfamethoxazole Allergy Hives Verified 11/20/16 10:50 [From Septra] trimethoprim [From ] Allergy Hives Verified 11/20/16 10:50 NSAIDS (Non-Steroidal AdvReac See Verified 11/20/16 17:00 Anti-Inflamma Comments Past Medical History - Past Medical History Medical history: Reports: arthritis, diabetes, hyperlipidemia, hypertension, renal disease, thyroid disease Surgical history: Reports: cholecystectomy Psychiatric history: Reports: no psych history - Social History Smoking Status: Never smoker Alcohol use: Reports: none Drug use: Reports: none Course Vital Signs Temperature 98.2 F 11/20/16 10:53 Pulse Rate 69 11/20/16 10:53 Respiratory Rate 15 11/20/16 10:53 Blood Pressure 148/74 11/20/16 10:53 O2 Sat by Pulse Oximetry 97 11/20/16 10:53 Temperature 98.8 F 11/21/16 07:00 Pulse Rate 72 11/21/16 07:00 Respiratory Rate 18 11/21/16 07:00 Blood Pressure 153/59 11/21/16 07:00 O2 Sat by Pulse Oximetry 96 11/21/16 07:00 Oxygen Delivery Oxygen Delivery Room Air Medical Decision Making - Lab Data Result diagrams: 11/21/16 06:55 11/21/16 00:48 Lab Results 11/20/16 11/20/16 11/20/16 Range/Units 11:24 11:24 11:24 WBC 8.1 (4.3-11.1) K/mcL RBC 3.44 L (3.82-4.97) M/mcL Hgb 9.7 L (11.5-15.4) g/dL Hct 30.6 L (35.3-44.9) % MCV 89.0 (83.0-100.0) fL MCH 28.2 (28.0-33.3) pg MCHC 31.7 (31.6-35.5) g/dL RDW 14.6 H (11.5-14.5) % Plt Count 238 (140-400) K/mcL MPV 11.0 (9.4-12.4) fL Immature Gran % 0.6 (0-4) % Seg Neutrophils % 71.7 % Lymphocytes % 17.1 % Monocytes % 6.2 % Eosinophils % 3.8 % Basophils % 0.6 % Neutrophils # 5.8 (1.6-8.9) K/mcL Lymphocytes # 1.4 (0.6-4.6) K/mcL Monocytes # 0.5 (0.0-1.3) K/mcL Eosinophils # 0.3 (0.0-0.6) K/mcL Basophils # 0.1 (0.0-0.2) K/mcL PT 11.9 (9.4-12.1) Seconds INR 1.1 APTT 30.2 (26.0-36.0) Seconds Sodium 135 L (136-145) mEq/L Potassium 4.9 H (3.5-4.5) mEq/L Chloride 100 (98-109) mEq/L Carbon Dioxide 25 (19-29) mEq/L BUN 45 H (7-20) mg/dL Creatinine 0.83 (0.57-1.11) mg/dL Est GFR ( Amer) > 60 (> 60) Est GFR (Non-Af Amer) > 60 (> 60) BUN/Creatinine Ratio 54 H (6-26) Glucose 141 H (70-99) mg/dL Calculated Osmolality 294 (280-300) Calcium 10.1 (8.6-10.8) mg/dL Total Bilirubin 0.2 (0.2-1.2) mg/dL AST 16 (5-34) Units/L ALT 13 (0-55) Units/L Alkaline Phosphatase 82 (38-126) Units/L Troponin I (0-0.03) ng/mL Serum Total Protein 7.0 (6.0-8.3) g/dL Albumin 2.7 L (3.5-5.0) g/dL Globulin 4.3 H (2.4-3.5) g/dL Albumin/Globulin Ratio 0.6 L (1.1-2.2) Stool Occult Blood (Negative) Blood Type Antibody Screen 11/20/16 11/20/16 11/20/16 Range/Units 11:24 11:24 11:32 WBC (4.3-11.1) K/mcL RBC (3.82-4.97) M/mcL Hgb (11.5-15.4) g/dL Hct (35.3-44.9) % MCV (83.0-100.0) fL MCH (28.0-33.3) pg MCHC (31.6-35.5) g/dL RDW (11.5-14.5) % Plt Count (140-400) K/mcL MPV (9.4-12.4) fL Immature Gran % (0-4) % Seg Neutrophils % % Lymphocytes % % Monocytes % % Eosinophils % % Basophils % % Neutrophils # (1.6-8.9) K/mcL Lymphocytes # (0.6-4.6) K/mcL Monocytes # (0.0-1.3) K/mcL Eosinophils # (0.0-0.6) K/mcL Basophils # (0.0-0.2) K/mcL PT (9.4-12.1) Seconds INR APTT (26.0-36.0) Seconds Sodium (136-145) mEq/L Potassium (3.5-4.5) mEq/L Chloride (98-109) mEq/L Carbon Dioxide (19-29) mEq/L BUN (7-20) mg/dL Creatinine (0.57-1.11) mg/dL Est GFR ( Amer) (> 60) Est GFR (Non-Af Amer) (> 60) BUN/Creatinine Ratio (6-26) Glucose (70-99) mg/dL Calculated Osmolality (280-300) Calcium (8.6-10.8) mg/dL Total Bilirubin (0.2-1.2) mg/dL AST (5-34) Units/L ALT (0-55) Units/L Alkaline Phosphatase (38-126) Units/L Troponin I 0.01 (0-0.03) ng/mL Serum Total Protein (6.0-8.3) g/dL Albumin (3.5-5.0) g/dL Globulin (2.4-3.5) g/dL Albumin/Globulin Ratio (1.1-2.2) Stool Occult Blood Positive A (Negative) Blood Type O POSITIVE Antibody Screen NEGATIVE Attestation Statement - Attestation Attestation: I examined this patient and my medical decision-making was reviewed with the LABORATORY PHLEBOTOMIST/PA/Advanced Practice Nurse/Resident Physician. I agree with the documented findings, disposition and treatment plan as described except to the extent set forth below. Face to face time provided Patient presents [facility] with reports of dark tarry stools. In September she underwent a laparotomy for a bowel perforation. She has a wound VAC in place. Pain only localized over the wound VAC. Patient denies taking blood thinners. She is alert and appropriate
[2016-11-20] MEDS ORDERED: 0.9 % Sodium Chloride 1,000 ML IVC ONE (10:53)
[2016-11-20] MEDS ORDERED: Pantoprazole 80 MG in 0.9 % Sodium Chloride 50 ML IVPB ONE (10:54)
--- NOTE | 2016-11-20 10:57 | Emergency Department Note ---
Disposition Clinical Impression: Lower GI bleed, Anemia due to GI blood loss Disposition: Admitted As Inpatient Condition: Good Time of Disposition: 12:20 GI Bleed HPI - General Chief complaint: ED GI Bleed Stated complaint: GI bleed Time Seen by Provider: 11/20/16 10:51 Source: patient, EMS Mode of arrival: EMS Limitations: no limitations Nursing Notes Reviewed: Yes Vital Signs Reviewed: Yes - History of Present Illness HPI Narrative: 76-year-old female history of hypertension, diabetes presents to ED for bloody stool. Patient is a [facility] resident at [facility] and reports passing E stool last night as well as today. Per EMS report they were informed that it was black tarry stools for past 2 days. She recently underwent a bow resection in October 08 from a gastric perforation performed by Dr. Ware. She otherwise has no other complaints. Denies any lightheadedness, recent illness, fever, chest pain, shortness of breath. She has isolated abdominal pain over the wound vac in the mid-abdomen. Denies any urinary complaints. Denies any anticoagulants. - Related Data Home Medications Medication Instructions Recorded Confirmed Ascorbate Calcium [Vitamin C] 500 mg PO DAILY 10/08/16 11/20/16 Chlorzoxazone 500 mg PO TID 10/08/16 11/20/16 Doxazosin [Cardura] 8 mg PO DAILY 10/08/16 11/20/16 Gabapentin [Neurontin] 600 mg PO TID 10/08/16 11/20/16 HYDROcodone/Acet 5/325 mg [[place] 1 tab PO Q4H PRN 10/08/16 11/20/16 5-325 mg] Levothyroxine [Synthroid] 100 mcg PO QAM 10/08/16 11/20/16 Lisinopril-HCTZ 20-12.5 [Prinzide 1 tab PO DAILY 10/08/16 11/20/16 20-12.5] Lysine [l-Lysine] 1,000 mg PO DAILY 10/08/16 11/20/16 Meloxicam [Mobic] 7.5 mg PO BID 10/08/16 11/20/16 Metformin [Glucophage] 500 mg PO BID 10/08/16 11/20/16 Nystatin POWDER [Nystop] 1 appl TP BID 10/08/16 11/20/16 Silver Sulfadiazine Cream 1 appl TP DAILY 10/08/16 11/20/16 [Silvadene] Folic Acid/Vit Bcomp,C [Renal 0.8 mg PO DAILY 11/20/16 11/20/16 Vitamin Tablet] Glucosamine Sulfate 1,000 mg PO DAILY 11/20/16 11/20/16 Previous Rx's Medication Instructions Recorded Docusate [Colace] 100 mg PO BID capsule 10/14/16 Omeprazole [PriLOSEC] 40 mg PO DAILY #30 cap 10/14/16 OxyCODONE/APAP 5/325 [Percocet 1 each PO Q4HR PRN #30 tablet 10/14/16 5/325 MG] Sucralfate [Carafate] 1 gm PO QIDAC #120 tablet 10/14/16 Allergies Allergy/AdvReac Type Severity Reaction Status Date / Time cephalexin [From Keflex] Allergy Hives Verified 11/20/16 10:50 sulfamethoxazole Allergy Hives Verified 11/20/16 10:50 [From Septra] trimethoprim [From Aprra] Allergy Hives Verified 11/20/16 10:50 All systems ED: reviewed and negative except as stated. Constitutional: Denies: fever, chills, weakness Cardiovascular: Denies: chest pain Respiratory: Denies: cough, dyspnea Gastrointestinal: Reports: abdominal pain, melena, hematochezia. Denies: nausea , vomiting, diarrhea, hematemesis Genitourinary: Denies: urgency, dysuria, frequency Integumentary: Denies: rash Neurological: Denies: headache, weakness Endocrine: Denies: fatigue Past Medical History - Past Medical History Medical history: Reports: arthritis, diabetes, hyperlipidemia, hypertension, renal disease, thyroid disease Surgical history: Reports: cholecystectomy Psychiatric history: Reports: no psych history - Social History Smoking Status: Never smoker Alcohol use: Reports: none Drug use: Reports: none Physical Exam - General Limitations: no limitations General appearance: alert, in no apparent distress, obese - Head Head exam: atraumatic, normocephalic, normal inspection - Eye Eye exam: Present: normal appearance, PERRL, EOMI - ENT ENT exam: normal exam, normal oropharynx, mucous membranes moist - Neck Neck exam: Present: normal inspection, full ROM, trachea midline - Chest Chest inspection: Present: normal inspection, symmetric chest wall rise - Respiratory Respiratory exam: Present: normal lung sounds bilaterally. Absent: respiratory distress, wheezes - Cardiovascular Cardiovascular exam: Present: regular rate, normal rhythm, normal heart sounds. Absent: systolic murmur, diastolic murmur - Abdominal Exam Abdominal exam: Present: soft, Non-Tender, normal bowel sounds, scar, other ( surgical incsion with wound vac). Absent: tenderness, distention, guarding, rebound, rigidity - Rectal Exam Land Le[employer] Examiner present during exam: Yes Rectal exam: Present: normal inspection, normal rectal tone, heme (+) stool, bloody stool - Extremities Exam Extremities exam: Present: normal inspection, full ROM, normal capillary refill. Absent: tenderness, pedal edema, calf tenderness - Neurological Exam Neurological exam: Present: alert, oriented X3 - Psychiatric Psychiatric exam: Present: normal affect, normal mood. Absent: depressed, agitated - Skin Skin exam: Present: warm, dry, intact, normal color Course Course Narrative: 76-year-old female presents with concern of G.I. bleed. Patient has been having bloody stool over the past 2 days. Denies any other symptoms. Hemodynamically stable here pulse 69 BP 148/74. She appears in no apparent distress. Lungs are clear auscultation bilaterally. Heart is regular rate and rhythm. Abdomen is soft nontender nondistended. She only has isolated discomfort around the surgical site, does not appear to be erythematous or indurated and there is no drainage. Will check basic labs and Hemoccult test. - Reevaluation(s) Reevaluation #1: She is anemic's 9.7. Her prior is 8.8. She has grossly positive bloody stool. Labs are otherwise unremarkable. Will admit her for G.I. bleed anemia. Patient is in agreement with this plan. Patient is otherwise stable at this time. Time: 12:34 - Consultations Consultation #1: Spoke with on-call hospitalist gerald Martin to admit for anemia due to GI bleed and gross bloody stool. No further orders at this time Time: 12:45 Vital Signs Temperature 98.2 F 11/20/16 10:53 Pulse Rate 69 11/20/16 10:53 Respiratory Rate 15 11/20/16 10:53 Blood Pressure 148/74 11/20/16 10:53 O2 Sat by Pulse Oximetry 97 11/20/16 10:53 Temperature 98.2 F 11/20/16 13:39 Pulse Rate 69 11/20/16 12:50 Respiratory Rate 16 11/20/16 13:39 Blood Pressure 149/64 11/20/16 13:39 O2 Sat by Pulse Oximetry 96 11/20/16 12:50 Oxygen Delivery Oxygen Delivery Room Air GI Bleed - Medical Records Medical records reviewed: Yes I reviewed the patient's medical records. - Lab Data Lab results reviewed: Yes I reviewed the patient's lab results. Result diagrams: 11/20/16 11:24 11/20/16 11:24 Lab Results 11/20/16 11/20/16 11/20/16 Range/Units 11:24 11:24 11:24 WBC 8.1 (4.3-11.1) K/mcL RBC 3.44 L (3.82-4.97) M/mcL Hgb 9.7 L (11.5-15.4) g/dL Hct 30.6 L (35.3-44.9) % MCV 89.0 (83.0-100.0) fL MCH 28.2 (28.0-33.3) pg MCHC 31.7 (31.6-35.5) g/dL RDW 14.6 H (11.5-14.5) % Plt Count 238 (140-400) K/mcL MPV 11.0 (9.4-12.4) fL Immature Gran % 0.6 (0-4) % Seg Neutrophils % 71.7 % Lymphocytes % 17.1 % Monocytes % 6.2 % Eosinophils % 3.8 % Basophils % 0.6 % Neutrophils # 5.8 (1.6-8.9) K/mcL Lymphocytes # 1.4 (0.6-4.6) K/mcL Monocytes # 0.5 (0.0-1.3) K/mcL Eosinophils # 0.3 (0.0-0.6) K/mcL Basophils # 0.1 (0.0-0.2) K/mcL PT 11.9 (9.4-12.1) Seconds INR 1.1 APTT 30.2 (26.0-36.0) Seconds Sodium 135 L (136-145) mEq/L Potassium 4.9 H (3.5-4.5) mEq/L Chloride 100 (98-109) mEq/L Carbon Dioxide 25 (19-29) mEq/L BUN 45 H (7-20) mg/dL Creatinine 0.83 (0.57-1.11) mg/dL Est GFR ( Amer) > 60 (> 60) Est GFR (Non-Af Amer) > 60 (> 60) BUN/Creatinine Ratio 54 H (6-26) Glucose 141 H (70-99) mg/dL Calculated Osmolality 294 (280-300) Calcium 10.1 (8.6-10.8) mg/dL Total Bilirubin 0.2 (0.2-1.2) mg/dL AST 16 (5-34) Units/L ALT 13 (0-55) Units/L Alkaline Phosphatase 82 (38-126) Units/L Troponin I (0-0.03) ng/mL Serum Total Protein 7.0 (6.0-8.3) g/dL Albumin 2.7 L (3.5-5.0) g/dL Globulin 4.3 H (2.4-3.5) g/dL Albumin/Globulin Ratio 0.6 L (1.1-2.2) Stool Occult Blood (Negative) Blood Type Antibody Screen 11/20/16 11/20/16 11/20/16 Range/Units 11:24 11:24 11:32 WBC (4.3-11.1) K/mcL RBC (3.82-4.97) M/mcL Hgb (11.5-15.4) g/dL Hct (35.3-44.9) % MCV (83.0-100.0) fL MCH (28.0-33.3) pg MCHC (31.6-35.5) g/dL RDW (11.5-14.5) % Plt Count (140-400) K/mcL MPV (9.4-12.4) fL Immature Gran % (0-4) % Seg Neutrophils % % Lymphocytes % % Monocytes % % Eosinophils % % Basophils % % Neutrophils # (1.6-8.9) K/mcL Lymphocytes # (0.6-4.6) K/mcL Monocytes # (0.0-1.3) K/mcL Eosinophils # (0.0-0.6) K/mcL Basophils # (0.0-0.2) K/mcL PT (9.4-12.1) Seconds INR APTT (26.0-36.0) Seconds Sodium (136-145) mEq/L Potassium (3.5-4.5) mEq/L Chloride (98-109) mEq/L Carbon Dioxide (19-29) mEq/L BUN (7-20) mg/dL Creatinine (0.57-1.11) mg/dL Est GFR ( Amer) (> 60) Est GFR (Non-Af Amer) (> 60) BUN/Creatinine Ratio (6-26) Glucose (70-99) mg/dL Calculated Osmolality (280-300) Calcium (8.6-10.8) mg/dL Total Bilirubin (0.2-1.2) mg/dL AST (5-34) Units/L ALT (0-55) Units/L Alkaline Phosphatase (38-126) Units/L Troponin I 0.01 (0-0.03) ng/mL Serum Total Protein (6.0-8.3) g/dL Albumin (3.5-5.0) g/dL Globulin (2.4-3.5) g/dL Albumin/Globulin Ratio (1.1-2.2) Stool Occult Blood Positive A (Negative) Blood Type O POSITIVE Antibody Screen NEGATIVE - EKG Data EKG attestation: Yes I reviewed and interpreted this EKG. EKG results narrative: EKG performed 1055 normal sinus rhythm with sinus arrhythmia 66 bpm, right bundle branch block QRS 132 with poor R-R wave progression, there are no ST elevations or depressions. Intervals are otherwise within normal limits CO interval 154 QT QTC 378 392. Compared to old EKG performed 10/08/2016 shows consistent findings right bundle branch block with consistent poor R-R wave progressionn. No acute ischemic changes.
[2016-11-20 11:31] LABS: Basophils # 0.1 K/mcL (0.0-0.2); Basophils % 0.6 %; Eosinophils # 0.3 K/mcL (0.0-0.6); Eosinophils % 3.8 %; Hematocrit 30.6 % (35.3-44.9); Hemoglobin 9.7 g/dL (11.5-15.4); Immature Granulocytes % 0.6 % (0-4); Lymphocytes # 1.4 K/mcL (0.6-4.6); Lymphocytes % 17.1 %; Mean Corpuscular HGB Conc 31.7 g/dL (31.6-35.5); Mean Corpuscular Hemoglobin 28.2 pg (28.0-33.3); Monocytes # 0.5 K/mcL (0.0-1.3); Monocytes % 6.2 %; Neutrophils # 5.8 K/mcL (1.6-8.9); Platelet Count 238 K/mcL (140-400); Red Blood Count 3.44 M/mcL (3.82-4.97); Red Cell Distribution Width 14.6 % (11.5-14.5); Segmented Neutrophils % 71.7 %
[2016-11-20 11:38] LABS: INR 1.1; Prothrombin Time 11.9 Seconds (9.4-12.1)
[2016-11-20 11:41] LABS: Activated Partial Thrombo Time 30.2 Seconds (26.0-36.0)
[2016-11-20 11:44] LABS: Alanine Aminotransferase 13 Units/L (0-55); Albumin 2.7 g/dL (3.5-5.0); Albumin/Globulin Ratio 0.6 (1.1-2.2); Alkaline Phosphatase 82 Units/L (38-126); Aspartate Amino Transferase 16 Units/L (5-34); BUN/Creatinine Ratio 54 (6-26); Bilirubin,Total 0.2 mg/dL (0.2-1.2); Blood Urea Nitrogen 45 mg/dL (7-20); Calcium 10.1 mg/dL (8.6-10.8); Carbon Dioxide 25 mEq/L (19-29); Chloride 100 mEq/L (98-109); Globulin 4.3 g/dL (2.4-3.5); Glucose 141 mg/dL (70-99); Osmolality,Calculated 294 (280-300); Potassium 4.9 mEq/L (3.5-4.5); Sodium 135 mEq/L (136-145); eGFR For African Americans > 60 (> 60); eGFR For Non-African Americans > 60 (> 60)
[2016-11-20] MEDS: Pantoprazole 40 MG in 0.9 % Sodium Chloride Mini Bag 100 ML IVC SCH ×2 (12:00→18:29)
[2016-11-20] MEDS ORDERED: Ondansetron 4 MG/2 ML VIAL IVP PRN (13:40)
[2016-11-20] MEDS ORDERED: Dextrose Gel 15 GM PO PRN ×2 (13:45)
[2016-11-20] MEDS ORDERED: *HR* Dextrose 50 % in Water (Syg) 50 ML SYRINGE IVP PRN (13:45)
[2016-11-20] MEDS ORDERED: D5% in Water 1,000 ML IVC PRN (13:45)
--- NOTE | 2016-11-20 14:11 | Internal Med History&Physical ---
<Annalee Temple - Last Filed: 11/20/16 14:21> Date of Encounter: 11/20/16 Time of Encounter: 13:00 Assessment and Plan (1) Lower GI bleed Current visit: Yes Status: Acute 1 patient has past history of gastric perforation. She is presently on Carafate as well as Protonix. She began to experience bright red bleeding from rectum starting yesterday with another episode this morning. Rectal exam did reveal bright red blood as well as occult positive stool. Patient was typed and screened for PRBCs and was initiated on Protonix 2 continue with Protonix 3 H&H every 6 hours and transfuse if hemoglobin less than 7 4 IV fluids 5 consult surgery 6 patient nothing by mouth (2) HTN (hypertension) Current visit: No Status: Chronic 1 presently controlled we will continue with home medications goals maintain systolic less than 140 Qualifiers: Hypertension type: essential hypertension Qualified Code(s): I10 - Essential (primary) hypertension (3) Diabetes Current visit: No Status: Chronic 1 patient is on metformin we will hold for now Accu-Cheks every 6 hours due to nothing by mouth sliding scale coverage Qualifiers: Diabetes mellitus type: type 2 Diabetes mellitus complication status: with unspecified complications Diabetes mellitus senior care insulin use: without senior care use Qualified Code(s): E11.8 - Type 2 diabetes mellitus with unspecified complications (4) Hypothyroid Current visit: No Status: Chronic 1 continue with Synthroid Qualifiers: Hypothyroidism type: unspecified Qualified Code(s): E03.9 - Hypothyroidism , unspecified (5) DVT prophylaxis Current visit: Yes Status: Acute 1 SCD Internal Medicine - H&P: HPI Chief complaint: Bright red bleeding from rectum Admitted From: Emergency Dept Plans for Post Hospital Care: Transfer [facility] Facility History of present illness: Ms. Covarrubias is a 76 year old female past medical history of hypertension diabetes hypothyroidism neuropathy gastric perforation. Patient had an episode of gastric perforation occurring in September underwent a resection with wound VAC placement by Dr. Ayon. She went to [facility] for rehabilitation and has been doing well until yesterday she experienced an episode of bright red blood from rectum. She denies any abdominal pain nausea vomiting diarrhea palpitations lightheadedness. She does have a wound VAC however denies any bloody drainage from wound. She had another episode this a.m. reported to the ER for evaluation. According to ER records rectal exam did reveal bright red blood in rectal vault. Occult stool was positive. Hemoglobin is stable at 9.7 rest of lab work unremarkable. vital signs were stable. She was type and screen was started on Protonix. EKG with sinus rhythm right bundle branch block which was present in previous EKG. She has been admitted for further workup and evaluation. Presently patient denies any chest/abdominal pain or shortness of breath. Abdomen is soft nondistended nontender to palpation except around wound VAC. Wound VAC dressing intact with no drainage is noted. I did speak with Dr. Ayon who will see patient for consult. I reviewed this case with who agrees with plan. Past Med Surg Social Fam HX - Past Medical History Medical history: arthritis, diabetes, hyperlipidemia, hypertension, renal disease, thyroid disease Psychiatric history: no psych history - Past Surgical History Surgical History: cholecystectomy - Social History Smoking Status: Never smoker Smokeless Tobacco Status: No Alcohol use: none Drug use: none Internal Medicine - H&P: Meds Ascorbate Calcium [Vitamin C] 500 mg PO DAILY 10/08/16 [History] Chlorzoxazone 500 mg PO TID 10/08/16 [History] Doxazosin [Cardura] 8 mg PO DAILY 10/08/16 [History] Gabapentin [Neurontin] 600 mg PO TID 10/08/16 [History] HYDROcodone/Acet 5/325 mg [[place] 5-325 mg] 1 tab PO Q4H PRN 10/08/16 [History] Levothyroxine [Synthroid] 100 mcg PO QAM 10/08/16 [History] Lisinopril-HCTZ 20-12.5 [Prinzide 20-12.5] 1 tab PO DAILY 10/08/16 [History] Lysine [l-Lysine] 1,000 mg PO DAILY 10/08/16 [History] Meloxicam [Mobic] 7.5 mg PO BID 10/08/16 [History] Metformin [Glucophage] 500 mg PO BID 10/08/16 [History] Nystatin POWDER [Nystop] 1 appl TP BID 10/08/16 [History] Silver Sulfadiazine Cream [Silvadene] 1 appl TP DAILY 10/08/16 [History] Docusate [Colace] 100 mg PO BID capsule 10/14/16 [Rx] Omeprazole [PriLOSEC] 40 mg PO DAILY #30 cap 10/14/16 [Rx] OxyCODONE/APAP 5/325 [Percocet 5/325 MG] 1 each PO Q4HR PRN #30 tablet 10/14/16 [Rx] Sucralfate [Carafate] 1 gm PO QIDAC #120 tablet 10/14/16 [Rx] Folic Acid/Vit Bcomp,C [Renal Vitamin Tablet] 0.8 mg PO DAILY 11/20/16 [History] Glucosamine Sulfate 1,000 mg PO DAILY 11/20/16 [History] Allergies cephalexin [From Keflex] Allergy (Verified 11/20/16 10:50) Hives sulfamethoxazole [From Septra] Allergy (Verified 11/20/16 10:50) Hives trimethoprim [From Aprra] Allergy (Verified 11/20/16 10:50) Hives All Systems PM: A 10-system review of systems was performed and is negative for pertinent findings except as documented above in the HPI. - Constitutional Constitutional: no chills, no fever(s), no night sweats - EENT Eyes: no change in vision, no discharge, no pain, no photophobia Nose, mouth and throat: no dysphagia, no nasal discharge, no neck pain, no sore throat - Cardiovascular Cardiovascular ROS IM: no chest pain, no diaphoresis, no dyspnea, no lightheadedness, no palpitations, no syncope - Respiratory Respiratory: no cough, no dyspnea, no wheezing, no excessive phlegm production - Gastrointestinal Gastrointestinal: hematochezia - Genitourinary Genitourinary: no change in urinary stream, no dysuria, no flank pain, no hematuria - Musculoskeletal Musculoskeletal ROS IM: no numbness, no tingling - Neurological Neurological ROS: no confusion, no convulsions, no focal weakness, no numbness, no tingling, no tremor(s) - Hematologic/Lymphatic Hematologic/Lymphatic: no easy bruising - Constitutional Vitals: Temp Pulse Resp BP Pulse Ox 98.2 F 69 16 149/64 96 11/20/16 13:39 11/20/16 12:50 11/20/16 13:39 11/20/16 13:39 11/20/16 12:50 General appearance: Present: A&O X 3, answers questions appropriately - Head Head exam: Present: atraumatic, normocephalic - Eye Eye exam: Present: PERRL, conjuntiva pink, sclera anicteric Pupils: Present: PERRL - Respiratory Respiratory exam: Present: CTAB. Absent: accessory muscle use, rales, rhonchi, wheezes - Cardiovascular Cardiovascular exam: Present: RRR, +S1, +S2. Absent: diastolic murmur, gallop, rubs, systolic murmur - GI/Abdominal GI/Abdominal exam: Present: normal bowel sounds, soft, no peritoneal signs. Absent: distended, tenderness - Extremities Exam Extremities exam: Present: pedal edema, warm, radial pulses palpable and symetrical. Absent: calf tenderness, cyanotic - Neurological Exam Neurological exam: Present: CN II-XII intact, oriented X3, no focal deficits. Absent: pronater drift, facial droop, speech deficit - Skin Skin exam: Present: dry, erythema, intact Additional comments: Erythema to the lower extremities bilaterally. Patient does have a venous stasis ulcer to left leg. Internal Med - H&P Results - Labs CBC & Chem 7: 11/20/16 11:24 11/20/16 11:24 - EKG Data EKG shows normal: sinus rhythm - EKG Data Prior EKG available for review: yes When compared to previous EKG: there is no significant change EKG comments: 11/20/16 14:13 RBB <Andrew Kohli T - Last Filed: 11/20/16 16:18> Date of Encounter: 11/20/16 Internal Medicine - H&P: HPI History of present illness: Ms. Covarrubias is a 76 year old female All Systems PM: A 10-system review of systems was performed and is negative for pertinent findings except as documented above in the HPI. - Constitutional Vitals: Temp Pulse Resp BP Pulse Ox 97.6 F 77 18 122/42 95 11/20/16 15:23 11/20/16 15:50 11/20/16 15:50 11/20/16 15:50 11/20/16 15:50 Internal Med - H&P Results - Labs CBC & Chem 7: 11/20/16 11:24 11/20/16 11:24 - Attending Attestation I examined this patient and my medical decision-making was reviewed with the RETAIL DEPARTMENT SUPERVISOR/PA/Advanced Practice Nurse/Resident Physician. I agree with the documented findings, disposition and treatment plan as described except to the extent set forth below. 76 Y/O F, resident of SNF who was recently discharged 10/2016 after an admission for bowel perforation s/p bowel resection, ventral hernia repair with wound vac. Patient was in her usual state till she started having bright red blood pre rectum since last night. ED ANA MARIA also revealed bright red blood, patient denied any dizziness, SOB, hematemesis or melena, and she has no fever or chills , or preceding diarrhea. She has a PMH of HTN, Hypothyroidism and DM Physical exam: VSS, Chest is clear, abdomen obese with ventral hernia, with slight hyperemia of skin around wound vac, wound vac with minimal drainage. No pedal edema Labs and Imaging reviewed: Hb stable at 9.7, no leukocytosis, PLT WNL, Elevated BUN, Lactate not checked, Coag panel WNL, FOBT positive. Assessment/Plan: GIB, most likely lower GI bleed, hemodynamically stable at this time, HB stable, NPO status, IVF hydration, Consult surgery for colonoscopy , Repeat Hb in 6-8 hours, Type and Screen, resume home meds except NSAIDs, Metformin, continue PPI. Wound consult for suspected pressure ulcer Rest of details as in [facility] documentation
--- NOTE | 2016-11-20 14:31 | General Surgery Consult Note ---
Date of Encounter: 11/20/16 Time of Encounter: 14:30 Assessment and Plan (1) GIB (gastrointestinal bleeding) Current Visit: Yes Status: Acute patient with previous gastric perforation without preceeding symptoms. she now is passing bright red blood per rectum. Will plan egd with iv meds, risks and benefits discussed and she wishes to proceed Qualifiers: GI bleed type/associated pathology: gastritis Gastritis type: unspecified gastritis Qualified Code(s): K29.71 - Gastritis, unspecified, with bleeding (2) Nonhealing surgical wound Current Visit: Yes Status: Acute wash with soap and water three times weekly, apply wound vac at 125 mm Hg continuous suction with black foam, change three times weekly Qualifiers: Encounter type: initial encounter Qualified Code(s): T81.89XA - Other complications of procedures, not elsewhere classified, initial encounter (3) Open wound of left ankle without complication Current Visit: Yes Status: Acute wash with soap and water daily, apply adaptic first, cover with collagen with silver, then 4x4 gauze and wrap with kerlix, change every other day Qualifiers: Encounter type: initial encounter Qualified Code(s): S91.002A - Unspecified open wound, left ankle, initial encounter History of Present Illness Consult date: 11/20/16 Reason for consult: endoscopy History of present illness: Patient is known to me. SHe comes in today with complaints of liquid diarrhea ever since her surgery on 10.08.16 for a gastric perforation. She states she has had ~4 liquid bms per day since then. She denies any abdominal pain. Denies nausea or emesis. She has no fever, chills or night sweats. Prior to her gastric perforation she never had issues with GERD or gastric ulcers. Started passing bright red blood yesterday and has had several episodes since then. Past Med Surg Social Fam HX - Past Medical History Source: patient Medical history: arthritis, diabetes, hyperlipidemia, hypertension, renal disease, thyroid disease, other (perforated gastric ulcer) Psychiatric history: no psych history - Past Surgical History Surgical History: cholecystectomy, other (ex lap, excision gastric perforation of the greater curvature of the stomach) - Social History Smoking Status: Never smoker Smokeless Tobacco Status: No Alcohol use: none Drug use: none Medications and Allergies Ascorbate Calcium [Vitamin C] 500 mg PO DAILY 10/08/16 [History] Chlorzoxazone 500 mg PO TID 10/08/16 [History] Doxazosin [Cardura] 8 mg PO DAILY 10/08/16 [History] Gabapentin [Neurontin] 600 mg PO TID 10/08/16 [History] HYDROcodone/Acet 5/325 mg [[place] 5-325 mg] 1 tab PO Q4H PRN 10/08/16 [History] Levothyroxine [Synthroid] 100 mcg PO QAM 10/08/16 [History] Lisinopril-HCTZ 20-12.5 [Prinzide 20-12.5] 1 tab PO DAILY 10/08/16 [History] Lysine [l-Lysine] 1,000 mg PO DAILY 10/08/16 [History] Meloxicam [Mobic] 7.5 mg PO BID 10/08/16 [History] Metformin [Glucophage] 500 mg PO BID 10/08/16 [History] Nystatin POWDER [Nystop] 1 appl TP BID 10/08/16 [History] Silver Sulfadiazine Cream [Silvadene] 1 appl TP DAILY 10/08/16 [History] Docusate [Colace] 100 mg PO BID capsule 10/14/16 [Rx] Omeprazole [PriLOSEC] 40 mg PO DAILY #30 cap 10/14/16 [Rx] OxyCODONE/APAP 5/325 [Percocet 5/325 MG] 1 each PO Q4HR PRN #30 tablet 10/14/16 [Rx] Sucralfate [Carafate] 1 gm PO QIDAC #120 tablet 10/14/16 [Rx] Folic Acid/Vit Bcomp,C [Renal Vitamin Tablet] 0.8 mg PO DAILY 11/20/16 [History] Glucosamine Sulfate 1,000 mg PO DAILY 11/20/16 [History] Allergies cephalexin [From Keflex] Allergy (Verified 11/20/16 10:50) Hives sulfamethoxazole [From Septra] Allergy (Verified 11/20/16 10:50) Hives trimethoprim [From Septra] Allergy (Verified 11/20/16 10:50) Hives Review of Systems All systems PM: reviewed and no additional remarkable complaints except as stated All systems PM: A 10-system review of systems was performed and is negative for pertinent findings except as documented above in the HPI. General Surgery Exam Initial Vital Signs Temp Pulse Resp BP Pulse Ox 98.2 F 69 15 148/74 97 11/20/16 10:53 11/20/16 10:53 11/20/16 10:53 11/20/16 10:53 11/20/16 10:53 - General physical appearance well nourished, no distress - Eyes PERRL, normal ocular movement - ENT normal mucosa, normocephalic - Neck trachea midline - Respiratory normal expansion, clear to auscultation - Cardiovascular Cardiovascular exam: Present: RRR - Abdomen Abdomen general surgery: Present: bowel sounds present, soft, tender (mildly around wound vac) - Incision Incision: Present: clean and dry, open (wound vac, three open midline wounds measure 20 cm long (cluster) x 5 cm wide x 2.5 cm deep, 90 % granulation tissue , 10% fibrin, periwound dry/no erythema, serous moderate drainage, minimal odor is due to vac) - Integumentary Integumentary general surgery: Present: warm and dry, no abnormal pigmentation - Neurologic Present: CN 2-12 grossly intact, normal sensation - Musculoskeletal Present: normal posture - Psychiatric Psychiatric general surgery: Present: A&Ox3, speech is normal - Additional Findings left lateral ankle open wound, unable to assess currently due to medication on wound Exam Initial Vital Signs Temp Pulse Resp BP Pulse Ox 98.2 F 69 15 148/74 97 11/20/16 10:53 11/20/16 10:53 11/20/16 10:53 11/20/16 10:53 11/20/16 10:53 Results - Labs 11/20/16 11:24 11/20/16 11:24 Abnormal lab results RBC 3.44 M/mcL (3.82-4.97) L 11/20/16 11:24 Hgb 9.7 g/dL (11.5-15.4) L 11/20/16 11:24 Hct 30.6 % (35.3-44.9) L 11/20/16 11:24 RDW 14.6 % (11.5-14.5) H 11/20/16 11:24 Sodium 135 mEq/L (136-145) L 11/20/16 11:24 Potassium 4.9 mEq/L (3.5-4.5) H 11/20/16 11:24 BUN 45 mg/dL (7-20) H 11/20/16 11:24 BUN/Creatinine Ratio 54 (6-26) H 11/20/16 11:24 Glucose 141 mg/dL (70-99) H 11/20/16 11:24 Albumin 2.7 g/dL (3.5-5.0) L 11/20/16 11:24 Globulin 4.3 g/dL (2.4-3.5) H 11/20/16 11:24 Albumin/Globulin Ratio 0.6 (1.1-2.2) L 11/20/16 11:24 Stool Occult Blood Positive (Negative) A 11/20/16 11:32 All other labs normal. Consult Discharge Plan - Plan Referrals: Nica Pryor, AYAN [Primary Care Provider] -
[2016-11-20] MEDS ORDERED: *HR* FentaNYL (PF) 100 MCG/2 ML VIAL ONE (15:24)
[2016-11-20] MEDS ORDERED: *HR* Midazolam HCl 5 MG/5 ML VIAL IVP ONE (15:24)
[2016-11-20] MEDS ORDERED: Tetracaine/Benzocaine/Butamben 200MG/SPRAY (100SPY/BOT) MM ONE (15:25)
[2016-11-20] MEDS ORDERED: Simethicone 40 MG/0.6 ML MLS IR ONE (15:25)
[2016-11-20] MEDS: *HR* Midazolam HCl 5 MG/5 ML VIAL IVP PRN ×2 (15:27→15:32)
[2016-11-20] MEDS: *HR* FentaNYL (PF) 100 MCG/2 ML VIAL IVP PRN ×3 (15:27→15:34)
[2016-11-20] MEDS ORDERED: Polyethylene Glycol 3350 255 GM POWDER PO ONE (15:45)
--- NOTE | 2016-11-20 15:45 | Pre-Sedation Evaluation ---
Pre-sedation evaluation - Pre-sedation checklist Date of procedure: 11/20/16 Procedure: egd Recent Vitals: Last Vital Signs Temp 97.6 F 11/20/16 15:23 Pulse 70 11/20/16 15:38 Resp 18 11/20/16 15:38 BP 154/53 11/20/16 15:38 Pulse Ox 96 11/20/16 15:38 H&P (including ROS) documented in medical record: Yes Previous reaction to sedatives/anesthetics: No Dietary Status: NPO 6 hours prior to procedure Airway Assessment: Patient can open mouth completely, TMJ function normal Dentition: dentures removed ASA Classification *see protocol: CLASS III-Severe systemic disease Plan of Care: Pt appropriate candidate for procedure/moderate/conscious sedation , Risks/benefits of procedure/sedation discussed w/ patient/family
[2016-11-20] MEDS: 0.9 % Sodium Chloride 1,000 ML IVC SCH (16:20)
[2016-11-20] MEDS: Sucralfate 1 GM TABLET PO SCH ×2 (17:01→21:40)
[2016-11-20] MEDS: Gabapentin 300 MG CAPSULE PO SCH ×2 (17:01→21:40)
[2016-11-20] MEDS: Insulin LISPRO 300 UNITS/3 ML VIAL SQ SCH (18:31)
[2016-11-20 19:44] LABS: Hematocrit 30.6 % (35.3-44.9); Hemoglobin 9.7 g/dL (11.5-15.4)
[2016-11-21 00:59] LABS: Basophils % 0.3 %; Eosinophils # 0.4 K/mcL (0.0-0.6); Eosinophils % 4.3 %; Hematocrit 29.1 % (35.3-44.9); Hemoglobin 9.3 g/dL (11.5-15.4); Immature Granulocytes % 0.6 % (0-4); Lymphocytes # 1.6 K/mcL (0.6-4.6); Lymphocytes % 17.6 %; Mean Corpuscular Hemoglobin 28.7 pg (28.0-33.3); Mean Corpuscular Volume 89.8 fL (83.0-100.0); Mean Platelet Volume 11.6 fL (9.4-12.4); Monocytes # 0.5 K/mcL (0.0-1.3); Neutrophils # 6.3 K/mcL (1.6-8.9); Platelet Count 218 K/mcL (140-400); Red Blood Count 3.24 M/mcL (3.82-4.97); Red Cell Distribution Width 14.6 % (11.5-14.5); Segmented Neutrophils % 71.2 %
[2016-11-21] MEDS: Insulin LISPRO 300 UNITS/3 ML VIAL SQ SCH ×4 (01:01→18:40)
[2016-11-21 01:08] LABS: BUN/Creatinine Ratio 45 (6-26); Calcium 9.3 mg/dL (8.6-10.8); Carbon Dioxide 24 mEq/L (19-29); Chloride 103 mEq/L (98-109); Glucose 99 mg/dL (70-99); Osmolality,Calculated 291 (280-300); Potassium 5.1 mEq/L (3.5-4.5); Sodium 137 mEq/L (136-145); eGFR For African Americans > 60 (> 60); eGFR For Non-African Americans > 60 (> 60)
[2016-11-21 01:09] LABS: Blood Urea Nitrogen 33 mg/dL (7-20)
[2016-11-21] MEDS: Pantoprazole 40 MG in 0.9 % Sodium Chloride Mini Bag 100 ML IVC SCH ×6 (01:27→22:14)
[2016-11-21] MEDS: 0.9 % Sodium Chloride 1,000 ML IVC SCH ×2 (05:51→22:14)
[2016-11-21 07:15] LABS: Hematocrit 29.9 % (35.3-44.9); Hemoglobin 9.6 g/dL (11.5-15.4)
[2016-11-21] MEDS: Ascorbic Acid 500 MG TABLET PO SCH (07:50)
[2016-11-21] MEDS: Sucralfate 1 GM TABLET PO SCH ×4 (07:50→22:14)
[2016-11-21] MEDS: Gabapentin 300 MG CAPSULE PO SCH ×3 (07:50→22:15)
[2016-11-21] MEDS: Renal Vitamin 1 MG CAPSULE PO SCH (07:52)
[2016-11-21] MEDS ORDERED: Lisinopril-HCTZ 20-12.5mg TABLET PO SCH (09:00)
--- NOTE | 2016-11-21 09:57 | Internal Med Progress Note ---
Date of Encounter: 11/21/16 Time of Encounter: 09:56 - Assessment and plan (1) HTN (hypertension) Current Visit: No Status: Chronic Assessment and plan: Continue meds Qualifiers: Hypertension type: essential hypertension Qualified Code(s): I10 - Essential (primary) hypertension (2) Diabetes Current Visit: Yes Status: Chronic Assessment and plan: Continue management Qualifiers: Diabetes mellitus type: type 2 Diabetes mellitus complication status: with unspecified complications Diabetes mellitus steamer operator insulin use: without skilled nursing use Qualified Code(s): E11.8 - Type 2 diabetes mellitus with unspecified complications (3) Hypothyroid Current Visit: Yes Status: Chronic Assessment and plan: euthyroid Continue meds Qualifiers: Hypothyroidism type: unspecified Qualified Code(s): E03.9 - Hypothyroidism , unspecified (4) Lower GI bleed Current Visit: Yes Status: Acute Assessment and plan: Management per surgery For colonoscopy a.m (5) Anemia due to GI blood loss Current Visit: Yes Status: Acute Assessment and plan: HB stable at this time (6) DVT prophylaxis Current Visit: Yes Status: Acute (7) Nonhealing surgical wound Current Visit: Yes Status: Acute Assessment and plan: Wound care as per surgery Qualifiers: Encounter type: initial encounter Qualified Code(s): T81.89XA - Other complications of procedures, not elsewhere classified, initial encounter (8) Open wound of left ankle without complication Current Visit: Yes Status: Acute Qualifiers: Encounter type: initial encounter Qualified Code(s): S91.002A - Unspecified open wound, left ankle, initial encounter - Subjective Interval history: Seen and evaluated at [facility] has no new complains EGD unremarkable for evidence of bleed Awaiting colonoscopy - Constitutional Vitals: Temp Pulse Resp BP Pulse Ox 98.8 F 72 18 153/59 96 11/21/16 07:00 11/21/16 07:00 11/21/16 07:00 11/21/16 07:00 11/21/16 07:00 General appearance: Present: A&O X 3, pleasant, no acute distress, answers questions appropriately Exam: VSS, Chest is clear, abdomen obese with ventral hernia, with slight hyperemia of skin around wound vac , not tender. No pedal edema Internal Medicine: Result - Labs CBC & Chem 7: 11/21/16 06:55 11/21/16 00:48 Labs: Short CBC 11/20/16 11/21/16 11/21/16 Range/Units 19:39 00:48 06:55 WBC 8.9 (4.3-11.1) K/mcL Hgb 9.7 L 9.3 L 9.6 L (11.5-15.4) g/dL Hct 30.6 L 29.1 L 29.9 L (35.3-44.9) % Plt Count 218 (140-400) K/mcL Neutrophils # 6.3 (1.6-8.9) K/mcL BMP 11/21/16 00:48 Sodium 137 Potassium 5.1 H Chloride 103 Carbon Dioxide 24 BUN 33 H D Creatinine 0.73 Glucose 99 Calcium 9.3 - ABG Interpretation ABG results: PT/INR, D-dimer PT 11.9 Seconds (9.4-12.1) 11/20/16 11:24 Consult Discharge Plan - Plan Referrals: Nica Pryor, RESPIRATORY THERAPY ASSISTANT [Primary Care Provider] -
--- NOTE | 2016-11-21 12:32 | General Surgery Progress Note ---
Date of Encounter: 11/21/16 Time of Encounter: 10:20 - Assessment and Plan (1) GIB (gastrointestinal bleeding) Current Visit: Yes Status: Acute patient had EGD yesterday which demonstrated a gastric ulcer and gastric polyp but no obvious upper GI bleed source. We will plan gentle 2 day bowel prep. We will plan colonoscopy with IV medication tomorrow, risks and benefits discussed with the patient and she wishes to proceed. Qualifiers: GI bleed type/associated pathology: gastritis Gastritis type: unspecified gastritis Qualified Code(s): K29.71 - Gastritis, unspecified, with bleeding (2) Nonhealing surgical wound Current Visit: Yes Status: Acute wash with soap and water three times weekly, apply wound vac at 125 mm Hg continuous suction with black foam, change three times weekly Qualifiers: Encounter type: initial encounter Qualified Code(s): T81.89XA - Other complications of procedures, not elsewhere classified, initial encounter (3) Open wound of left ankle without complication Current Visit: Yes Status: Acute wash with soap and water daily, apply adaptic first, cover with collagen with silver, then 4x4 gauze and wrap with kerlix, change every other day Qualifiers: Encounter type: initial encounter Qualified Code(s): S91.002A - Unspecified open wound, left ankle, initial encounter (4) Gastric ulcer Current Visit: Yes Status: Acute Continue PPI therapy and Carafate Qualifiers: Gastric ulcer chronicity: chronic Gastric ulcer complication status: without hemorrhage or perforation Qualified Code(s): K25.7 - Chronic gastric ulcer without hemorrhage or perforation Subjective Narrative: still complaining mostly of buttock pain secondary to raw skin from excorriation no nausea no abdominal pain Objective Vital Signs - Last 8 Hours Temp Pulse Resp BP Pulse Ox 11/21/16 11:00 98.0 F 71 18 136/58 94 11/21/16 07:00 98.8 F 72 18 153/59 96 Intake and Output 11/20/16 11/21/16 11/21/16 23:59 07:59 15:59 Intake Total 1700 / 1700 1500 / 1500 580 / 580 Output Total 0 / 0 55 / 55 Balance 1700 / 1700 1445 / 1445 580 / 580 Intake: IV Fluids 1100 / 1100 1200 / 1200 100 / 100 0.9 % Sodium Chloride 1, 1000 / 1000 1000 / 1000 000 ML @ 75 mls/hr IVC . [id number] [facility] Rx#: [id number] Protonix 40 MG In 0.9 % 100 / 100 200 / 200 100 / 100 Sodium Chloride (Mini-Bag +) 100 ML @ 20 mls/hr IVC .Q5H [facility] Rx#: [id number] Oral 600 / 600 300 / 300 480 / 480 Output: Urine 0 / 0 0 / 0 Wound Drainage 0 / 0 55 / 55 Abdomen 0 / 0 55 / 55 Other: Meal Dinner Breakfast Stool Size Small Small Small Stool Consistency formed soft liquid Stool Characteristics Normal for Patient Stool Color Brown Brown Brown Dark Red Blood # Voids 1 # Urine Diapers 1 1 # Bowel Movements 1 1 Weight 98.611 kg Blood Glucose* 96 102 128 Patient Weight 11/21/16 23:59 Weight 98.611 kg - General physical appearance well nourished, no distress, no pain, obese - Eyes PERRL, normal ocular movement - ENT normal mucosa, normocephalic - Neck Neck exam: trachea midline - Respiratory normal expansion, clear to auscultation - Cardiovascular Cardiovascular exam: Present: RRR - Abdomen Abdomen: Present: bowel sounds present, soft, tender (around wound vac) - Incision Incision: Present: clean and dry, open - Integumentary other (excorriation bilateral buttocks) - Neurologic CN 2-12 grossly intact - Musculoskeletal normal posture - Psychiatric oriented to time, oriented to person, oriented to place, speech is normal, memory intact - Labs 11/21/16 06:55 11/21/16 00:48 Short CBC 11/21/16 11/21/16 11/20/16 Range/Units 06:55 00:48 19:39 WBC 8.9 (4.3-11.1) K/mcL Hgb 9.6 L 9.3 L 9.7 L (11.5-15.4) g/dL Hct 29.9 L 29.1 L 30.6 L (35.3-44.9) % Plt Count 218 (140-400) K/mcL Neutrophils # 6.3 (1.6-8.9) K/mcL BMP 11/21/16 Range/Units 00:48 Sodium 137 (136-145) mEq/L Potassium 5.1 H (3.5-4.5) mEq/L Chloride 103 (98-109) mEq/L Carbon Dioxide 24 (19-29) mEq/L BUN 33 H D (7-20) mg/dL Creatinine 0.73 (0.57-1.11) mg/dL Glucose 99 (70-99) mg/dL Calcium 9.3 (8.6-10.8) mg/dL Vital Signs Temp Pulse Resp BP Pulse Ox 11/21/16 11:00 98.0 F 71 18 136/58 94 11/21/16 07:00 98.8 F 72 18 153/59 96 11/21/16 03:26 98.2 F 73 21 146/73 96 11/21/16 01:01 98.0 F 71 16 129/68 95 11/20/16 19:21 97.5 F L 70 18 162/72 95 11/20/16 16:30 98.8 F 73 18 144/58 92 11/20/16 15:50 77 18 122/42 95 11/20/16 15:38 70 18 154/53 96 11/20/16 15:33 77 18 163/51 96 11/20/16 15:25 73 18 159/47 98 11/20/16 15:23 97.6 F 68 18 158/67 95 11/20/16 14:33 97.9 F 75 18 174/75 96 11/20/16 13:39 98.2 F 16 149/64 11/20/16 12:50 69 16 149/64 96 Intake and Output 11/20/16 11/21/16 11/21/16 23:59 07:59 15:59 Intake Total 1700 / 1700 1500 / 1500 580 / 580 Output Total 0 / 0 55 / 55 Balance 1700 / 1700 1445 / 1445 580 / 580 Intake: IV Fluids 1100 / 1100 1200 / 1200 100 / 100 0.9 % Sodium Chloride 1, 1000 / 1000 1000 / 1000 000 ML @ 75 mls/hr IVC . [id number] [facility] Rx#: [id number] Protonix 40 MG In 0.9 % 100 / 100 200 / 200 100 / 100 Sodium Chloride (Mini-Bag +) 100 ML @ 20 mls/hr IVC .Q5H [facility] Rx#: [id number] Oral 600 / 600 300 / 300 480 / 480 Output: Urine 0 / 0 0 / 0 Wound Drainage 0 / 0 55 / 55 Abdomen 0 / 0 55 / 55 Other: Meal Dinner Breakfast Stool Size Small Small Small Stool Consistency formed soft liquid Stool Characteristics Normal for Patient Stool Color Brown Brown Brown Dark Red Blood # Voids 1 # Urine Diapers 1 1 # Bowel Movements 1 1 Weight 98.611 kg Blood Glucose* 96 102 128 Patient Weight 11/21/16 23:59 Weight 98.611 kg Consult Discharge Plan - Plan Referrals: Nica Pryor, PROPERTY COORDINATOR [Primary Care Provider] -
--- NOTE | 2016-11-21 17:44 | Electrocardiograph Report ---
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
[2016-11-22] MEDS: Insulin LISPRO 300 UNITS/3 ML VIAL SQ SCH ×5 (00:02→23:36)
[2016-11-22] MEDS: Pantoprazole 40 MG in 0.9 % Sodium Chloride Mini Bag 100 ML IVC SCH (03:48)
[2016-11-22 08:47] LABS: Basophils % 0.4 %; Eosinophils # 0.3 K/mcL (0.0-0.6); Hemoglobin 9.6 g/dL (11.5-15.4); Immature Granulocytes % 0.5 % (0-4); Lymphocytes # 1.1 K/mcL (0.6-4.6); Lymphocytes % 11.9 %; Mean Corpuscular Hemoglobin 28.2 pg (28.0-33.3); Mean Corpuscular Volume 88.2 fL (83.0-100.0); Mean Platelet Volume 11.2 fL (9.4-12.4); Monocytes # 0.5 K/mcL (0.0-1.3); Neutrophils # 7.3 K/mcL (1.6-8.9); Platelet Count 226 K/mcL (140-400); Red Cell Distribution Width 14.6 % (11.5-14.5); Segmented Neutrophils % 79.2 %
[2016-11-22] MEDS: Sucralfate 1 GM TABLET PO SCH ×4 (08:53→23:21)
[2016-11-22] MEDS: Renal Vitamin 1 MG CAPSULE PO SCH (08:53)
[2016-11-22] MEDS: Ascorbic Acid 500 MG TABLET PO SCH (08:53)
[2016-11-22] MEDS: Gabapentin 300 MG CAPSULE PO SCH ×3 (08:54→23:20)
[2016-11-22 08:59] LABS: BUN/Creatinine Ratio 21 (6-26); Calcium 9.2 mg/dL (8.6-10.8); Carbon Dioxide 24 mEq/L (19-29); Chloride 105 mEq/L (98-109); Glucose 105 mg/dL (70-99); Magnesium 1.4 mg/dL (1.6-2.6); Osmolality,Calculated 287 (280-300); Phosphorous 2.8 mg/dL (2.3-4.7); Potassium 4.4 mEq/L (3.5-4.5); Sodium 138 mEq/L (136-145); eGFR For African Americans > 60 (> 60); eGFR For Non-African Americans > 60 (> 60)
[2016-11-22 09:03] LABS: Blood Urea Nitrogen 15 mg/dL (7-20)
[2016-11-22] MEDS ORDERED: Polyethylene Glycol 3350 255 GM POWDER PO STA (09:05)
[2016-11-22] MEDS ORDERED: Magnesium Sulfate 1 GM in D5% in Water 100 ML IVPB ONE (11:08)
--- NOTE | 2016-11-22 11:11 | Internal Med Progress Note ---
Date of Encounter: 11/22/16 Time of Encounter: 11:08 - Assessment and plan (1) Acute blood loss anemia Current Visit: Yes Status: Acute Assessment and plan: Secondary to GI bleeding. Hemoglobin today is 9.3. No external bleeding. Patient is hemodynamically stable. No need for transfusion at this time. Close monitoring. (2) GIB (gastrointestinal bleeding) Current Visit: Yes Status: Acute Assessment and plan: Patient underwent EGD revealing nonbleeding gastric ulcer 3mm, nonbleeding gastric polyp that was removed and small hiatal hernia. Plan for colonoscopy tomorrow morning. Qualifiers: GI bleed type/associated pathology: unspecified gastrointestinal hemorrhage type Qualified Code(s): K92.2 - Gastrointestinal hemorrhage, unspecified (3) Gastric ulcer Current Visit: Yes Status: Acute Assessment and plan: PPI twice a day and Carafate. Negative H pylori test in gastric biopsy. Qualifiers: Gastric ulcer chronicity: chronic Gastric ulcer complication status: without hemorrhage or perforation Qualified Code(s): K25.7 - Chronic gastric ulcer without hemorrhage or perforation (4) HTN (hypertension) Current Visit: No Status: Chronic Assessment and plan: Continue home dose of Cardura. Holding lisinopril due to hyperkalemia. Start IV hydralazine as needed. Qualifiers: Hypertension type: essential hypertension Qualified Code(s): I10 - Essential (primary) hypertension (5) Hypothyroid Current Visit: Yes Status: Chronic Assessment and plan: euthyroid Continue meds Qualifiers: Hypothyroidism type: unspecified Qualified Code(s): E03.9 - Hypothyroidism , unspecified (6) Nonhealing surgical wound Current Visit: Yes Status: Acute Assessment and plan: Continue wound vac Qualifiers: Encounter type: initial encounter Qualified Code(s): T81.89XA - Other complications of procedures, not elsewhere classified, initial encounter (7) Hypomagnesemia Current Visit: Yes Status: Acute Assessment and plan: Repleted. (8) Diabetes Current Visit: Yes Status: Chronic Assessment and plan: Fasting glucose 126. Continue sliding scale insulin and diabetic diet. Qualifiers: Diabetes mellitus type: type 2 Diabetes mellitus complication status: with unspecified complications Diabetes mellitus alf insulin use: without alf use Qualified Code(s): E11.8 - Type 2 diabetes mellitus with unspecified complications - Subjective Interval history: No bleeding. no abdominal pain. - Constitutional Vitals: Temp Pulse Resp BP Pulse Ox 98.0 F 74 18 169/74 96 11/22/16 07:13 11/22/16 07:13 11/22/16 07:13 11/22/16 07:13 11/22/16 07:13 General appearance: Present: A&O X 3, pleasant, no acute distress, answers questions appropriately - Eye Eye exam: Present: PERRL, sclera anicteric - Neck Neck exam general surgery: Present: supple, trachea midline. Absent: lymphadenopathy - Respiratory Respiratory exam: Present: CTAB. Absent: respiratory distress, wheezes - Cardiovascular Cardiovascular exam: Present: RRR - GI/Abdominal GI/Abdominal exam: Present: normal bowel sounds, soft. Absent: distended, tenderness Additional comments: wound Vac at Midline. no surrounding erythema. - Extremities Exam Extremities exam: Present: pedal edema (Dressing covering left leg.) - Back Exam Back exam: Absent: CVA tenderness (L), CVA tenderness (R) - Neurological Exam Neurological exam: Present: alert, no focal deficits. Absent: facial droop, speech deficit Internal Medicine: Result - Labs CBC & Chem 7: 11/22/16 08:17 11/22/16 08:17 Labs: Short CBC 11/22/16 Range/Units 08:17 WBC 9.2 (4.3-11.1) K/mcL Hgb 9.6 L (11.5-15.4) g/dL Hct 30.0 L (35.3-44.9) % Plt Count 226 (140-400) K/mcL Neutrophils # 7.3 (1.6-8.9) K/mcL BMP 11/22/16 08:17 Sodium 138 Potassium 4.4 Chloride 105 Carbon Dioxide 24 BUN 15 D Creatinine 0.71 Glucose 105 H Calcium 9.2 - ABG Interpretation ABG results: PT/INR, D-dimer PT 11.9 Seconds (9.4-12.1) 11/20/16 11:24 Consult Discharge Plan - Plan Referrals: Yandy Mackenzie CNP [Advanced Practice Nurse] - 12/12/16 9:30 am Nica Pryor CNP [Primary Care Provider] - 12/01/16 1:00 pm
--- NOTE | 2016-11-22 13:42 | General Surgery Progress Note ---
Date of Encounter: 11/23/16 Time of Encounter: 13:40 - Assessment and Plan (1) GIB (gastrointestinal bleeding) Current Visit: Yes Status: Acute Patient is not clear after 2 full Miralax and Gatorade bowel preps Clear liquids today NPO after midnight Continue rectal tube Plan for colonoscopy with Dr. Ware 11/23/16 Hgb stable- 9.3>9.6 Qualifiers: GI bleed type/associated pathology: unspecified gastrointestinal hemorrhage type Qualified Code(s): K92.2 - Gastrointestinal hemorrhage, unspecified (2) Nonhealing surgical wound Current Visit: Yes Status: Acute Wound vac to midline wound Qualifiers: Encounter type: initial encounter Qualified Code(s): T81.89XA - Other complications of procedures, not elsewhere classified, initial encounter (3) Open wound of left ankle without complication Current Visit: Yes Status: Acute Daily wound care as ordered Qualifiers: Encounter type: initial encounter Qualified Code(s): S91.002A - Unspecified open wound, left ankle, initial encounter (4) Gastric ulcer Current Visit: Yes Status: Acute PPI therapy and carafate daily no more NSAIDS Qualifiers: Gastric ulcer chronicity: chronic Gastric ulcer complication status: without hemorrhage or perforation Qualified Code(s): K25.7 - Chronic gastric ulcer without hemorrhage or perforation Subjective Patient reports: no new complaints, bowel movement, diarrhea (with bowel prep and rectal tube in place (continue brown liquid noted after 2 full bowel preps)) , afebrile Objective Vital Signs - Last 8 Hours Temp Pulse Resp BP Pulse Ox 11/22/16 12:17 98.0 F 76 16 167/68 97 11/22/16 07:13 98.0 F 74 18 169/74 96 Intake and Output 11/21/16 11/22/16 11/22/16 23:59 07:59 15:59 Intake Total 1680 / 1680 100 / 100 1202 / 1202 Output Total 0 / 0 0 / 0 Balance 1670 / 1670 100 / 100 1202 / 1202 Intake: IV Fluids 1200 / 1200 100 / 100 1202 / 1202 0.9 % Sodium Chloride 1, 1000 / 1000 1000 / 1000 000 ML @ 75 mls/hr IVC . [id number] [facility] Rx#: [id number] Protonix 40 MG In 0.9 % 200 / 200 100 / 100 100 / 100 Sodium Chloride (Mini-Bag +) 100 ML @ 20 mls/hr IVC .Q5H [facility] Rx#: [id number] Magnesium Sulfate 1 GM In 102 / 102 Dextrose 5% 100 ML @ 100 mls/hr IVPB ONCE ONE Rx# :[id number] Oral 480 / 480 0 / 0 0 / 0 Output: Urine 0 / 0 0 / 0 Wound Drainage 10 / 10 0 / 0 Abdomen 10 0 / 0 Other: Meal NPO Stool Size Large Moderate Stool Consistency liquid liquid Stool Color Brown Brown # Urine Diapers 1 # Bowel Movements 6 Weight 94.03 kg Blood Glucose* 135 126 185 Patient Weight 11/22/16 23:59 Weight 94.03 kg - General physical appearance no distress, chronically ill, obese - Eyes normal ocular movement - ENT normal mucosa, atraumatic, normocephalic - Neck Neck exam: trachea midline - Respiratory normal respiratory effort, clear to auscultation - Cardiovascular Cardiovascular exam: Present: RRR - Abdomen Abdomen: Present: bowel sounds present, soft, non tender, tender (slightly tender near wound vac), wound - Incision Incision: Present: open (wound vac to midline) - Integumentary no growths, other (LLE with wound noted; dressing intact) - Neurologic CN 2-12 grossly intact - Musculoskeletal other (severe deconditioning) - Psychiatric oriented to time, oriented to person, oriented to place, speech is normal, memory intact - Labs 11/22/16 08:17 11/23/16 06:16 Diabetes panel 11/22/16 Range/Units 08:17 Sodium 138 (136-145) mEq/L Potassium 4.4 (3.5-4.5) mEq/L Chloride 105 (98-109) mEq/L Carbon Dioxide 24 (19-29) mEq/L BUN 15 D (7-20) mg/dL Creatinine 0.71 (0.57-1.11) mg/dL Glucose 105 H (70-99) mg/dL Calcium 9.2 (8.6-10.8) mg/dL Calcium panel 11/22/16 Range/Units 08:17 Calcium 9.2 (8.6-10.8) mg/dL Phosphorus 2.8 (2.3-4.7) mg/dL Pituitary panel 11/22/16 Range/Units 08:17 Sodium 138 (136-145) mEq/L Potassium 4.4 (3.5-4.5) mEq/L Chloride 105 (98-109) mEq/L Carbon Dioxide 24 (19-29) mEq/L BUN 15 D (7-20) mg/dL Creatinine 0.71 (0.57-1.11) mg/dL Glucose 105 H (70-99) mg/dL Calcium 9.2 (8.6-10.8) mg/dL Adrenal panel 11/22/16 Range/Units 08:17 Sodium 138 (136-145) mEq/L Potassium 4.4 (3.5-4.5) mEq/L Chloride 105 (98-109) mEq/L Carbon Dioxide 24 (19-29) mEq/L BUN 15 D (7-20) mg/dL Creatinine 0.71 (0.57-1.11) mg/dL Glucose 105 H (70-99) mg/dL Calcium 9.2 (8.6-10.8) mg/dL Consult Discharge Plan - Plan Referrals: Yandy Mackenzie CNP [Advanced Practice Nurse] - 12/12/16 9:30 am Nica Pryor CNP [Primary Care Provider] - 12/01/16 1:00 pm - Attending Attestation I examined this patient and my medical decision-making was reviewed with the DEGREE CLERK/PA/Advanced Practice Nurse/Resident Physician. I agree with the documented findings, disposition and treatment plan as described except to the extent set forth below.
[2016-11-22] MEDS: hydroCHLOROthiazide 25 MG TABLET PO SCH (18:59)
[2016-11-23] MEDS: Insulin LISPRO 300 UNITS/3 ML VIAL SQ SCH ×2 (06:17→12:12)
[2016-11-23 06:45] LABS: BUN/Creatinine Ratio 11 (6-26); Blood Urea Nitrogen 8 mg/dL (7-20); Calcium 9.2 mg/dL (8.6-10.8); Carbon Dioxide 25 mEq/L (19-29); Chloride 104 mEq/L (98-109); Glucose 104 mg/dL (70-99); Osmolality,Calculated 283 (280-300); Phosphorous 2.6 mg/dL (2.3-4.7); Potassium 4.1 mEq/L (3.5-4.5); Sodium 137 mEq/L (136-145); eGFR For African Americans > 60 (> 60); eGFR For Non-African Americans > 60 (> 60)
[2016-11-23] MEDS ORDERED: Simethicone 40 MG/0.6 ML MLS IR ONE (07:11)
--- NOTE | 2016-11-23 07:11 | Pre-Sedation Evaluation ---
Pre-sedation evaluation - Pre-sedation checklist Date of procedure: 11/23/16 Procedure: colonoscopy Recent Vitals: Last Vital Signs Temp 98 F 11/23/16 07:09 Pulse 71 11/23/16 07:09 Resp 18 11/23/16 07:09 BP 164/73 11/23/16 07:09 Pulse Ox 96 11/23/16 07:09 H&P (including ROS) documented in medical record: Yes Previous reaction to sedatives/anesthetics: No Dietary Status: NPO 6 hours prior to procedure Dentition: dentures removed ASA Classification *see protocol: CLASS III-Severe systemic disease Plan of Care: Pt appropriate candidate for procedure/moderate/conscious sedation , Risks/benefits of procedure/sedation discussed w/ patient/family
[2016-11-23] MEDS ORDERED: *HR* Promethazine 25 MG/ML VIAL ONE (07:26)
[2016-11-23] MEDS ORDERED: *HR* FentaNYL (PF) 100 MCG/2 ML VIAL ONE (07:26)
[2016-11-23] MEDS ORDERED: *HR* Midazolam HCl 5 MG/5 ML VIAL IVP ONE (07:26)
[2016-11-23 07:32] LABS: Basophils % 0.5 %; Eosinophils # 0.3 K/mcL (0.0-0.6); Eosinophils % 3.9 %; Hematocrit 29.9 % (35.3-44.9); Hemoglobin 9.4 g/dL (11.5-15.4); Immature Granulocytes % 0.5 % (0-4); Lymphocytes # 1.3 K/mcL (0.6-4.6); Lymphocytes % 15.4 %; Mean Corpuscular HGB Conc 31.4 g/dL (31.6-35.5); Mean Platelet Volume 11.6 fL (9.4-12.4); Monocytes # 0.4 K/mcL (0.0-1.3); Monocytes % 5.3 %; Neutrophils # 6.1 K/mcL (1.6-8.9); Platelet Count 237 K/mcL (140-400); Red Blood Count 3.36 M/mcL (3.82-4.97); Red Cell Distribution Width 14.5 % (11.5-14.5); Segmented Neutrophils % 74.4 %
[2016-11-23] MEDS: *HR* FentaNYL (PF) 100 MCG/2 ML VIAL IVP PRN ×2 (07:33→07:43)
[2016-11-23] MEDS: *HR* Midazolam HCl 5 MG/5 ML VIAL IVP PRN ×3 (07:33→07:50)
[2016-11-23] MEDS: Renal Vitamin 1 MG CAPSULE PO SCH (08:42)
[2016-11-23] MEDS: Gabapentin 300 MG CAPSULE PO SCH ×2 (08:42→14:55)
[2016-11-23] MEDS: Ascorbic Acid 500 MG TABLET PO SCH (08:44)
[2016-11-23] MEDS: Sucralfate 1 GM TABLET PO SCH ×3 (08:44→17:09)
[2016-11-23] MEDS: hydroCHLOROthiazide 25 MG TABLET PO SCH (08:44)
[2016-11-23] MEDS ORDERED: Magnesium Sulfate 2 GM in D5% in Water 100 ML IVPB STA (09:49)
[2016-11-23] MEDS ORDERED: Magnesium Sulfate 1 GM in D5% in Water 100 ML IVPB ONE (12:00)
[2016-11-23 15:37] VITALS: BP 151/66
--- NOTE | 2016-11-23 17:08 | Discharge Summary ---
Date of Encounter: 11/23/16 Time of Encounter: 14:00 - Discharge Diagnosis (1) Acute blood loss anemia Priority: Primary Status: Acute (2) GIB (gastrointestinal bleeding) Priority: Primary Status: Acute Qualifiers: GI bleed type/associated pathology: unspecified gastrointestinal hemorrhage type Qualified Code(s): K92.2 - Gastrointestinal hemorrhage, unspecified (3) Gastric ulcer Priority: Primary Status: Acute Qualifiers: Gastric ulcer chronicity: chronic Gastric ulcer complication status: without hemorrhage or perforation Qualified Code(s): K25.7 - Chronic gastric ulcer without hemorrhage or perforation (4) HTN (hypertension) Priority: Secondary Status: Chronic Qualifiers: Hypertension type: essential hypertension Qualified Code(s): I10 - Essential (primary) hypertension (5) Hypothyroid Priority: Secondary Status: Chronic Qualifiers: Hypothyroidism type: unspecified Qualified Code(s): E03.9 - Hypothyroidism , unspecified (6) Nonhealing surgical wound Priority: Secondary Status: Chronic Qualifiers: Encounter type: initial encounter Qualified Code(s): T81.89XA - Other complications of procedures, not elsewhere classified, initial encounter (7) Hypomagnesemia Priority: Primary Status: Acute (8) Diabetes Priority: Secondary Status: Chronic Qualifiers: Diabetes mellitus type: type 2 Diabetes mellitus complication status: with unspecified complications Diabetes mellitus usp insulin use: without usp use Qualified Code(s): E11.8 - Type 2 diabetes mellitus with unspecified complications - Discharge Medications Prescriptions: Lisinopril [Zestril] 20 mg PO QAM #30 tablet Pantoprazole Sodium [Protonix] 40 mg PO BID #60 tablet.dr Home Medications: Ascorbate Calcium [Vitamin C] 500 mg PO DAILY 10/08/16 [History] Chlorzoxazone 500 mg PO TID 10/08/16 [History] Doxazosin [Cardura] 8 mg PO DAILY 10/08/16 [History] Gabapentin [Neurontin] 600 mg PO TID 10/08/16 [History] Levothyroxine [Synthroid] 100 mcg PO QAM 10/08/16 [History] Lysine [l-Lysine] 1,000 mg PO DAILY 10/08/16 [History] Metformin [Glucophage] 500 mg PO BID 10/08/16 [History] Nystatin POWDER [Nystop] 1 appl TP BID 10/08/16 [History] Silver Sulfadiazine Cream [Silvadene] 1 appl TP DAILY 10/08/16 [History] Docusate [Colace] 100 mg PO BID capsule 10/14/16 [Rx] Sucralfate [Carafate] 1 gm PO QIDAC #120 tablet 10/14/16 [Rx] Folic Acid/Vit Bcomp,C [Renal Vitamin Tablet] 0.8 mg PO DAILY 11/20/16 [History] Glucosamine Sulfate 1,000 mg PO DAILY 11/20/16 [History] Lisinopril [Zestril] 20 mg PO QAM #30 tablet 11/23/16 [Rx] Magnesium Oxide [Mag-Ox] 800 mg PO BID tablet 11/23/16 [Rx] Pantoprazole Sodium [Protonix] 40 mg PO BID #60 tablet. 11/23/16 [Rx] Allergies/Adverse Reactions: Allergies cephalexin [From Keflex] Allergy (Verified 11/20/16 10:50) Hives sulfamethoxazole [From Septra] Allergy (Verified 11/20/16 10:50) Hives trimethoprim [From Septra] Allergy (Verified 11/20/16 10:50) Hives NSAIDS (Non-Steroidal Anti-Inflamma Adverse Reaction (Verified 11/20/16 17:00) See Comments Risk for bleeding Date of admission: 11/20/16 13:40 Primary care physician: Nica Pryor CNP Consults: 11/20/16 14:04 Consult to Surgery [CONS] Routine Consulting Provider: Surgery [facility] Reason for Consult: GI bleed Time Notified: 14:04 Call Completed: Yes 11/20/16 14:53 Consult to Wound Care [CONS] Routine Reason for Consult: pressure area to buttocks, wound vac Time Notified: 14:54 Call Completed: No 11/22/16 08:19 Consult to Watch Inspector Final Movement [CONS] Routine Reason for SW Consult: from [facility] in [place]; has a wound vac - Patient Status Disposition: Transfer SNF Condition: Good Functional capacity at discharge: bed bound Overall status at discharge: patient is progressing back to baseline - Discharge Instructions Follow Up With: Yandy Mackenzie CNP [Advanced Practice Nurse] - 12/12/16 9:30 am - Diet and Activity Activity: resume usual activities as tolerated Diet: low fat, low cholesterol, low salt diet, other (ENSURE HP, CHOCOLATE) Interval History: Patient has no complaints. No bleeding. No abdominal pain. She is eating well. Hospital course: Ms. Covarrubias is a 76 year old female with past medical history hypertension, diabetes, hypothyroidism, and recent hospitalization on 10/08/2016 for a gastric perforation status post gastric resection with wound VAC to nonhealing midline surgical wound. She comes with bright red blood per rectum. Patient underwent EGD revealing nonbleeding gastric ulcer 3 mm, nonbleeding gastric polyp that was removed and a small hiatal hernia. Colonoscopy had a poor preparation but no bleeding, one 2 mm polyp in the rectum, removed with cold biopsy forceps and pancolonic diverticulosis. Patient was started on oral contrast and PPI twice a day. Her hemoglobin levels were in the 9s. She remained hemodynamically stable and no episodes of bleeding during this hospitalization. PLAN: CBC 1 week. Check mangnesium levels. Because monitor her blood pressure. Weight loss program. - Time Spent with Patient Total time spent providing and/or coordinating discharge services: - Constitutional Vitals: Temp Pulse Resp BP Pulse Ox 98.6 F 70 16 151/66 94 11/23/16 15:36 11/23/16 15:36 11/23/16 15:36 11/23/16 15:36 11/23/16 15:36 General appearance: Present: A&O X 3, pleasant, no acute distress, answers questions appropriately
--- NOTE | 2016-11-23 17:12 | Physician Discharge Referral ---
ExtendedCare Referral Info Transfer To: snf Provider in Charge: CHLOE Provider in Charge after Transfer: PCP Institutional Level of Care: Skilled - Diagnosis (1) Acute blood loss anemia Status: Acute (2) GIB (gastrointestinal bleeding) Status: Acute (3) Gastric ulcer Status: Acute (4) HTN (hypertension) Status: Chronic (5) Hypothyroid Status: Chronic (6) Nonhealing surgical wound Status: Chronic (7) Hypomagnesemia Status: Acute (8) Diabetes Status: Chronic - Transfer Medications Prescriptions: Lisinopril [Zestril] 20 mg PO QAM #30 tablet Pantoprazole Sodium [Protonix] 40 mg PO BID #60 tablet. Home Medications: Ascorbate Calcium [Vitamin C] 500 mg PO DAILY 10/08/16 [History] Chlorzoxazone 500 mg PO TID 10/08/16 [History] Doxazosin [Cardura] 8 mg PO DAILY 10/08/16 [History] Gabapentin [Neurontin] 600 mg PO TID 10/08/16 [History] Levothyroxine [Synthroid] 100 mcg PO QAM 10/08/16 [History] Lysine [l-Lysine] 1,000 mg PO DAILY 10/08/16 [History] Metformin [Glucophage] 500 mg PO BID 10/08/16 [History] Nystatin POWDER [Nystop] 1 appl TP BID 10/08/16 [History] Silver Sulfadiazine Cream [Silvadene] 1 appl TP DAILY 10/08/16 [History] Docusate [Colace] 100 mg PO BID capsule 10/14/16 [Rx] Sucralfate [Carafate] 1 gm PO QIDAC #120 tablet 10/14/16 [Rx] Folic Acid/Vit Bcomp,C [Renal Vitamin Tablet] 0.8 mg PO DAILY 11/20/16 [History] Glucosamine Sulfate 1,000 mg PO DAILY 11/20/16 [History] Lisinopril [Zestril] 20 mg PO QAM #30 tablet 11/23/16 [Rx] Magnesium Oxide [Mag-Ox] 800 mg PO BID tablet 11/23/16 [Rx] Pantoprazole Sodium [Protonix] 40 mg PO BID #60 tablet. 11/23/16 [Rx] Allergies/Adverse Reactions: Allergies cephalexin [From Keflex] Allergy (Verified 11/20/16 10:50) Hives sulfamethoxazole [From ] Allergy (Verified 11/20/16 10:50) Hives trimethoprim [From Aprra] Allergy (Verified 11/20/16 10:50) Hives NSAIDS (Non-Steroidal Anti-Inflamma Adverse Reaction (Verified 11/20/16 17:00) See Comments Risk for bleeding - Respiratory Orders Smoking Cessation: Smoking cessation has been advised. For more information, call the [employer] Tobacco Quit Line at 1-955-LMKD-NOW. - Lab Orders Lab Orders: Other (include drug levels w/frequency) (MAGNESIUM ON Monday. BMP IN 1 WEEK.) - Advance Directives Code Status: Full Code - Mobility Orders Other (PER PHYSICAL THERAPY) - Rehabiliation Orders Rehab Potential: Fair Rehab Orders: Evaluation for Physical Therapy, Evaluation for Occupational Therapy - Treatments Skin tear care topically daily PRN per policy, May check for fecal impaction rectally daily PRN List/Other: CHECK BLOOD PRESSURE TWICE DAILY WEIGHT LOSS PROGRAM - Diet Orders No Added Salt (RADHA), No Concentrated Sweets, Cardiac CERTIFICATION: I certify that the transfer of the above named patient to an Extended Care Facility is necessary for the continuing treatment of the diagnosis listed. The above information is true and accurate reflection of patient's current condition. Confidential - Redisclosure prohibited without a patient's written consent.
[2016-11-23] MEDS ORDERED: Magnesium Oxide 400 MG TABLET PO SCH (21:00)
== END 2016-11-23 20:05 | DRG 378 ==
LOC: EMEROO 10:47 → 3ANU 10:47 → SUATTDRO 13:40
PROVIDERS: ADMIT Internal Medicine; ATTEND Internal Medicine
PROC: ENDOEBX (2016-11-20 15:30)
PROC: ENDOCBX (2016-11-23 07:15)

== ENCOUNTER 2016-12-05 02:54 | Observation (INO) ==
--- NOTE | 2016-12-05 03:42 | Emergency Department Note ---
Disposition Clinical Impression: Elevated BUN GI bleed Qualifiers: GI bleed type/associated pathology: unspecified gastrointestinal hemorrhage type Qualified Code(s): K92.2 - Gastrointestinal hemorrhage, unspecified Anemia Qualifiers: Anemia type: unspecified type Qualified Code(s): D64.9 - Anemia, unspecified Disposition: Admitted As Inpatient Condition: Fair Referrals: Piper Ware MD [Partnered Physician] - Forms: ED Satisfaction Letter GI Bleed HPI - General Chief complaint: ED GI Bleed Stated complaint: rectal bleeding Time Seen by Provider: 12/05/16 03:01 Source: patient, EMS Mode of arrival: EMS Limitations: no limitations Nursing Notes Reviewed: Yes Vital Signs Reviewed: Yes - History of Present Illness HPI Narrative: 76-year-old female history of hypertension, diabetes status post exploratory laparoscopy over 5 weeks ago where she had a gastric perforation with wedge resection and ventral hernia repair. Patient had none, K postoperative course and was brought in to the emergency department today for concerns of bright red blood per rectum. Patient denies being on any anticoagulants or antiplatelets. Denies any abdominal pain. No nausea vomiting. Patient states that it was an isolated episode this evening. Denies any fevers chest pain or shortness of breath. States that she was evaluated with an upper and lower scope at the beginning of this month without any significant intervention. - Related Data Home Medications Medication Instructions Recorded Confirmed Ascorbate Calcium [Vitamin C] 500 mg PO DAILY 10/08/16 12/02/16 Chlorzoxazone 500 mg PO TID 10/08/16 12/02/16 Doxazosin [Cardura] 8 mg PO DAILY 10/08/16 12/02/16 Gabapentin [Neurontin] 600 mg PO TID 10/08/16 12/02/16 Levothyroxine [Synthroid] 100 mcg PO QAM 10/08/16 12/02/16 Lysine [l-Lysine] 1,000 mg PO DAILY 10/08/16 12/02/16 Metformin [Glucophage] 500 mg PO BID 10/08/16 12/02/16 Nystatin POWDER [Nystop] 1 appl TP BID 10/08/16 12/02/16 Silver Sulfadiazine Cream 1 appl TP DAILY 10/08/16 12/02/16 [Silvadene] Folic Acid/Vit Bcomp,C [Renal 0.8 mg PO DAILY 11/20/16 12/02/16 Vitamin Tablet] Glucosamine Sulfate 1,000 mg PO DAILY 11/20/16 12/02/16 Omeprazole 20 mg PO BID 12/02/16 12/02/16 OxyCODONE/APAP 5/325 [Percocet 1 each PO Q4HR PRN 12/02/16 12/02/16 5/325 MG] Vit B Cplx C No.13/Folic AC/D3 1 each PO DAILY 12/02/16 12/02/16 [Nephrocaps Qt Tablet] Previous Rx's Medication Instructions Recorded Docusate [Colace] 100 mg PO BID capsule 10/14/16 Sucralfate [Carafate] 1 gm PO QIDAC #120 tablet 10/14/16 Lisinopril [Zestril] 20 mg PO QAM #30 tablet 11/23/16 Magnesium Oxide [Mag-Ox] 800 mg PO BID tablet 11/23/16 Allergies Allergy/AdvReac Type Severity Reaction Status Date / Time cephalexin [From Keflex] Allergy Hives Verified 12/05/16 03:02 sulfamethoxazole Allergy Hives Verified 12/05/16 03:02 [From Septra] trimethoprim [From Septra] Allergy Hives Verified 12/05/16 03:02 NSAIDS (Non-Steroidal AdvReac See Verified 12/05/16 03:02 Anti-Inflamma Comments All systems ED: reviewed and negative except as stated. Constitutional: Reports: as per HPI. Denies: fever Eyes: Reports: as per HPI ENT ED: Reports: as per HPI Cardiovascular: Reports: as per HPI. Denies: chest pain Respiratory: Reports: as per HPI. Denies: dyspnea Gastrointestinal: Reports: as per HPI, hematochezia. Denies: abdominal pain, nausea, vomiting Genitourinary: Reports: as per HPI Musculoskeletal: Reports: as per HPI Integumentary: Reports: as per HPI Neurological: Reports: as per HPI Psychiatric: Reports: as per HPI Hematological/Lymphatic: Reports: as per HPI Past Medical History - Past Medical History Medical history: Reports: arthritis, diabetes, hyperlipidemia, hypertension, renal disease, thyroid disease, other Surgical history: Reports: cholecystectomy, other Psychiatric history: Reports: no psych history MONOTYPER history: Reports: no MONOTYPER history - Social History Smoking Status: Former smoker Smokeless Tobacco Status: No Alcohol use: Reports: none Drug use: Reports: none Physical Exam - General Limitations: no limitations General appearance: alert, in no apparent distress - Head Head exam: atraumatic, normocephalic, normal inspection - Eye Eye exam: Present: normal appearance, EOMI. Absent: scleral icterus - ENT ENT exam: normal exam, mucous membranes moist - Neck Neck exam: Present: normal inspection, trachea midline - Chest Chest inspection: Present: normal inspection, symmetric chest wall rise - Respiratory Respiratory exam: Present: normal lung sounds bilaterally. Absent: respiratory distress - Cardiovascular Cardiovascular exam: Present: regular rate, normal rhythm - Abdominal Exam Abdominal exam: Present: soft, Non-Tender, other (Functional wound VAC in place in the left abdomen from a healing abdominal incision). Absent: distention, guarding, rebound - Rectal Exam Bike Designer present during exam: Yes Rectal exam: Present: normal inspection, heme (+) stool, bloody stool - Extremities Exam Extremities exam: Present: normal inspection, pedal edema (Trace bilateral with left lower leg aced wrapped) - Back Exam Back exam: Present: normal inspection - Neurological Exam Neurological exam: Present: alert - Skin Skin exam: Present: warm, dry, intact, normal color Course Course Narrative: Patient seen and examined upon arrival. Patient has been evaluated in the recent past on the ninth of this month the patient upper and lower endoscopy. The patient's upper endoscopy shows a nonbleeding gastric ulcer without any stigmata of bleeding. Gastritis. Patient's colonoscopy was poor prep but did not reveal a source of bleeding with multiple diverticuli and a polyp removed. Patient was admitted for the similar complaint with bright red blood per rectum during this past hospitalization. Patient's bleeding resolved. Patient will get basic lab work including type and screen, coags, stool guaiac. Vital Signs Temperature 98 F 12/05/16 02:59 Pulse Rate 84 12/05/16 02:59 Respiratory Rate 16 12/05/16 02:59 Blood Pressure 114/56 12/05/16 02:59 O2 Sat by Pulse Oximetry 93 12/05/16 02:59 Temperature 98 F 12/05/16 02:59 Pulse Rate 77 12/05/16 05:17 Respiratory Rate 16 12/05/16 05:17 Blood Pressure 128/66 12/05/16 05:17 O2 Sat by Pulse Oximetry 96 12/05/16 05:17 Oxygen Delivery Oxygen Delivery Room Air GI Bleed - [facility] Narrative Medical decision making narrative: 76-year-old female presents for evaluation of bright red blood per rectum. Patient did have positive stool guaiac. Patient is hemodynamically stable. Hemoglobin is 9.8 slightly higher than baseline 9.4 during last evaluation. Patient's chart was reviewed as she had a history of a gastric perforation with repair by Dr. Ware. Patient also had an upper endoscopy as well as lower endoscopy by Dr. Ware possibly 2 weeks ago. Upper endoscopy showed gastritis with an ulcer with no stigmata of bleeding. Lower endoscopy showed diverticular disease without evidence of bleeding. Patient's lab work is consistent with an upper GI bleed with an elevated BUN. Patient was given Protonix as well as a Protonix strip done in the emergency department. Patient will likely benefit from observation on the hospital floor with trending hemoglobins. Imaging of the patient's abdomen is not warranted at this time as the patient's abdomen is soft nontender. Patient denies any issues of nausea vomiting or diarrhea. - Lab Data Lab results reviewed: Yes I reviewed the patient's lab results. Result diagrams: 12/05/16 04:25 12/05/16 04:25 Lab Results 12/05/16 12/05/16 12/05/16 Range/Units 03:20 04:25 04:25 WBC 10.7 (4.3-11.1) K/mcL RBC 3.56 L (3.82-4.97) M/mcL Hgb 9.8 L (11.5-15.4) g/dL Hct 31.3 L (35.3-44.9) % MCV 87.9 (83.0-100.0) fL MCH 27.5 L (28.0-33.3) pg MCHC 31.3 L (31.6-35.5) g/dL RDW 14.5 (11.5-14.5) % Plt Count 262 (140-400) K/mcL MPV 11.2 (9.4-12.4) fL Immature Gran % 0.6 (0-4) % Seg Neutrophils % 73.8 % Lymphocytes % 17.3 % Monocytes % 5.0 % Eosinophils % 2.8 % Basophils % 0.5 % Neutrophils # 7.9 (1.6-8.9) K/mcL Lymphocytes # 1.9 (0.6-4.6) K/mcL Monocytes # 0.5 (0.0-1.3) K/mcL Eosinophils # 0.3 (0.0-0.6) K/mcL Basophils # 0.1 (0.0-0.2) K/mcL PT 11.1 (9.4-12.1) Seconds INR 1.0 APTT 27.6 (26.0-36.0) Seconds Sodium (136-145) mEq/L Potassium (3.5-4.5) mEq/L Chloride (98-109) mEq/L Carbon Dioxide (19-29) mEq/L BUN (7-20) mg/dL Creatinine (0.57-1.11) mg/dL Est GFR ( Amer) (> 60) Est GFR (Non-Af Amer) (> 60) BUN/Creatinine Ratio (6-26) Glucose (70-99) mg/dL Calculated Osmolality (280-300) Calcium (8.6-10.8) mg/dL Total Bilirubin (0.2-1.2) mg/dL AST (5-34) Units/L ALT (0-55) Units/L Alkaline Phosphatase (38-126) Units/L Serum Total Protein (6.0-8.3) g/dL Albumin (3.5-5.0) g/dL Globulin (2.4-3.5) g/dL Albumin/Globulin Ratio (1.1-2.2) Stool Occult Blood Positive A (Negative) Blood Type Antibody Screen 12/05/16 12/05/16 Range/Units 04:25 04:25 WBC (4.3-11.1) K/mcL RBC (3.82-4.97) M/mcL Hgb (11.5-15.4) g/dL Hct (35.3-44.9) % MCV (83.0-100.0) fL MCH (28.0-33.3) pg MCHC (31.6-35.5) g/dL RDW (11.5-14.5) % Plt Count (140-400) K/mcL MPV (9.4-12.4) fL Immature Gran % (0-4) % Seg Neutrophils % % Lymphocytes % % Monocytes % % Eosinophils % % Basophils % % Neutrophils # (1.6-8.9) K/mcL Lymphocytes # (0.6-4.6) K/mcL Monocytes # (0.0-1.3) K/mcL Eosinophils # (0.0-0.6) K/mcL Basophils # (0.0-0.2) K/mcL PT (9.4-12.1) Seconds INR APTT (26.0-36.0) Seconds Sodium 135 L (136-145) mEq/L Potassium 4.7 H (3.5-4.5) mEq/L Chloride 100 (98-109) mEq/L Carbon Dioxide 25 (19-29) mEq/L BUN 55 H (7-20) mg/dL Creatinine 0.98 (0.57-1.11) mg/dL Est GFR ( Amer) > 60 (> 60) Est GFR (Non-Af Amer) 55 L (> 60) BUN/Creatinine Ratio 56 H (6-26) Glucose 132 H (70-99) mg/dL Calculated Osmolality 297 (280-300) Calcium 9.5 (8.6-10.8) mg/dL Total Bilirubin 0.2 (0.2-1.2) mg/dL AST 18 (5-34) Units/L ALT 17 (0-55) Units/L Alkaline Phosphatase 78 (38-126) Units/L Serum Total Protein 7.0 (6.0-8.3) g/dL Albumin 2.7 L (3.5-5.0) g/dL Globulin 4.3 H (2.4-3.5) g/dL Albumin/Globulin Ratio 0.6 L (1.1-2.2) Stool Occult Blood (Negative) Blood Type O POSITIVE Antibody Screen NEGATIVE S.B.A.R. - S.B.A.RMario Situation: Demographics, MOA Background: Presenting Complaint Assessment: Vital Signs, Course and respsone to treatment, Patient/Family Expectation, Pertinant Lab Results Recommendation: Barrier(s) to disposition, Recommendation based on pending studies, treatments, or consults S.B.A.R. Report Given to: Dr. Nancy Romero Repor Time: 05:20
--- NOTE | 2016-12-05 04:15 | Emergency Department Note ---
START Narrative - START START: I, Cody Turk, examined this patient and my medical decision-making was reviewed with the TRANSMISSION CALIBRATION ENGINEER/PA/Advanced Practice Nurse/Resident Physician. I agree with the documented findings, disposition and treatment plan as described except to the extent set forth below. 76-year-old female brought in by EMS for concerns of rectal bleeding. Patient states that she had pneumoperitoneum which was evaluated by Dr. Ayon with possible resection of bowel versus omentum. Patient recently had a colonoscopy which showed multiple diverticuli and a single polyp which was removed without other evidence of ulceration. Patient has no abdominal pain in the emergency department. She denies eating red foods which could cause her stool be red. Rectal exam performed with female nurse present in the room reveals grossly bloody stool which is guaiac positive. Patient is hemodynamically stable in the emergency department. She will be admitted to the hospital for further care and evaluation of GI bleeding.
[2016-12-05] MEDS ORDERED: Pantoprazole 40 MG VIAL IVP ONE ×2 (04:24→04:46)
[2016-12-05 04:41] LABS: Basophils # 0.1 K/mcL (0.0-0.2); Basophils % 0.5 %; Eosinophils # 0.3 K/mcL (0.0-0.6); Eosinophils % 2.8 %; Hematocrit 31.3 % (35.3-44.9); Hemoglobin 9.8 g/dL (11.5-15.4); Immature Granulocytes % 0.6 % (0-4); Lymphocytes # 1.9 K/mcL (0.6-4.6); Lymphocytes % 17.3 %; Mean Corpuscular HGB Conc 31.3 g/dL (31.6-35.5); Mean Corpuscular Hemoglobin 27.5 pg (28.0-33.3); Mean Corpuscular Volume 87.9 fL (83.0-100.0); Mean Platelet Volume 11.2 fL (9.4-12.4); Monocytes # 0.5 K/mcL (0.0-1.3); Neutrophils # 7.9 K/mcL (1.6-8.9); Platelet Count 262 K/mcL (140-400); Red Blood Count 3.56 M/mcL (3.82-4.97); Red Cell Distribution Width 14.5 % (11.5-14.5); Segmented Neutrophils % 73.8 %
[2016-12-05 04:47] LABS: Prothrombin Time 11.1 Seconds (9.4-12.1)
[2016-12-05 04:50] LABS: Activated Partial Thrombo Time 27.6 Seconds (26.0-36.0)
[2016-12-05 05:04] LABS: Alanine Aminotransferase 17 Units/L (0-55); Albumin 2.7 g/dL (3.5-5.0); Albumin/Globulin Ratio 0.6 (1.1-2.2); Alkaline Phosphatase 78 Units/L (38-126); Aspartate Amino Transferase 18 Units/L (5-34); BUN/Creatinine Ratio 56 (6-26); Bilirubin,Total 0.2 mg/dL (0.2-1.2); Blood Urea Nitrogen 55 mg/dL (7-20); Calcium 9.5 mg/dL (8.6-10.8); Carbon Dioxide 25 mEq/L (19-29); Chloride 100 mEq/L (98-109); Globulin 4.3 g/dL (2.4-3.5); Glucose 132 mg/dL (70-99); Osmolality,Calculated 297 (280-300); Potassium 4.7 mEq/L (3.5-4.5); Sodium 135 mEq/L (136-145); eGFR For African Americans > 60 (> 60); eGFR For Non-African Americans 55 (> 60)
[2016-12-05] MEDS ORDERED: Pantoprazole 40 MG in 0.9 % Sodium Chloride Mini Bag 100 ML IVC SCH (05:15)
[2016-12-05] MEDS ORDERED: Naloxone 0.4 MG/ML INJ IVP PRN (05:33)
[2016-12-05] MEDS ORDERED: Ondansetron 4 MG/2 ML VIAL IVP PRN (05:33)
[2016-12-05] MEDS ORDERED: Acetaminophen 325 MG TABLET PO PRN (05:33)
[2016-12-05] MEDS ORDERED: *HR* Morphine 2 MG/ML SYRINGE IVP PRN (05:33)
--- NOTE | 2016-12-05 05:40 | Internal Med History&Physical ---
Date of Encounter: 12/05/16 Time of Encounter: 05:37 Assessment and Plan (1) Anemia due to GI blood loss Current visit: No Status: Acute Acute blood loss anemia possibly from GI bleed, upper versus lower, BUN is increased which is compatible with possibly upper GI bleed but the patient so bright red blood per rectum Protonix drip started at the ER, monitor CBC and consider transfusion Consults surgery as the patient is a patient of Dr. Ware Continue fluids, hold blood pressure medications including lisinopril for now Hepatitis Zahida prophylaxis and sequential compression device for DVT prophylaxis. The patient will be admitted as inpatient, expected stable until midnight Full code. Time spent on this admission 40 minutes. High risk due to GI bleed (2) Diarrhea Current visit: No Status: Acute Has been complaining of diarrhea Qualifiers: Diarrhea type: unspecified type Qualified Code(s): R19.7 - Diarrhea, unspecified (3) Gastric ulcer Current visit: No Status: Acute Gastric ulcer last endoscopy Qualifiers: Gastric ulcer chronicity: chronic Gastric ulcer complication status: without hemorrhage or perforation Qualified Code(s): K25.7 - Chronic gastric ulcer without hemorrhage or perforation (4) Diabetes Current visit: No Status: Chronic Continue insulin sliding scale only as the patient will be nothing by mouth Qualifiers: Diabetes mellitus type: type 2 Diabetes mellitus complication status: with unspecified complications Diabetes mellitus mcc insulin use: without veterans services specialist use Qualified Code(s): E11.8 - Type 2 diabetes mellitus with unspecified complications (5) HTN (hypertension) Current visit: No Status: Chronic Hold blood pressure medications Qualifiers: Hypertension type: essential hypertension Qualified Code(s): I10 - Essential (primary) hypertension (6) Hypothyroid Current visit: No Status: Chronic Qualifiers: Hypothyroidism type: unspecified Qualified Code(s): E03.9 - Hypothyroidism , unspecified (7) Nonhealing surgical wound Current visit: No Status: Chronic Wound VAC in place Qualifiers: Encounter type: initial encounter Qualified Code(s): T81.89XA - Other complications of procedures, not elsewhere classified, initial encounter (8) Venous ulcer of ankle Current visit: No Status: Chronic Qualifiers: Laterality: left Qualified Code(s): 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 Covarrubias is a 76 year old female with a past medical history of GI bleed, gastric perforation , abdominal wound, diabetes type 2 not insulin-dependent, hypertension who came to the emergency room complaining of rectal bleed in large amounts that started at 10:30 last night. His hemoglobin is 9.8 and his about the same as it was before during her last hospitalization where it was 9.4. The patient had an upper endoscopy 2 weeks ago that showed a nonbleeding gastric ulcer of 3 mm and also colonoscopy that showed poor bowel prep, polyps were removed back then. Today her Hemoccult is positive and her BUN is 55 that is worrisome for an upper GI bleed. She denies having any dark stools. She is a patient of Dr. Ware. The patient denies any dizziness, feels slightly weak. She was transferred from a custodial. Is not taking any blood thinners. Past Med Surg Social Fam HX - Past Medical History Medical history: arthritis, diabetes (Not insulin-dependent), GI bleed, hyperlipidemia, hypertension, renal disease (Chronic kidney disease stage III), thyroid disease (Hypothyroidism), other (Gastric ulcer/gastric perforation status post surgical procedure back in September, colonic polyps) Psychiatric history: no psych history - Past Surgical History Surgical History: cholecystectomy, other (Exploratory laparoscopy with wedge resection and ventral hernia repair, wound VAC on her abdomen, left ankle venous ulcer) - Social History Smoking Status: Former smoker Smokeless Tobacco Status: No Alcohol use: none Drug use: none - Family History Mother Living Status: - Additional Family History Additional family history: Father with myocardial infarction at the age of 74 Internal Medicine - H&P: Meds Ascorbate Calcium [Vitamin C] 500 mg PO DAILY 10/08/16 [History] Chlorzoxazone 500 mg PO TID 10/08/16 [History] Doxazosin [Cardura] 8 mg PO DAILY 10/08/16 [History] Gabapentin [Neurontin] 600 mg PO TID 10/08/16 [History] Levothyroxine [Synthroid] 100 mcg PO QAM 10/08/16 [History] Lysine [l-Lysine] 1,000 mg PO DAILY 10/08/16 [History] Metformin [Glucophage] 500 mg PO BID 10/08/16 [History] Nystatin POWDER [Nystop] 1 appl TP BID 10/08/16 [History] Silver Sulfadiazine Cream [Silvadene] 1 appl TP DAILY 10/08/16 [History] Docusate [Colace] 100 mg PO BID capsule 10/14/16 [Rx] Sucralfate [Carafate] 1 gm PO QIDAC #120 tablet 10/14/16 [Rx] Folic Acid/Vit Bcomp,C [Renal Vitamin Tablet] 0.8 mg PO DAILY 11/20/16 [History] Glucosamine Sulfate 1,000 mg PO DAILY 11/20/16 [History] Lisinopril [Zestril] 20 mg PO QAM #30 tablet 11/23/16 [Rx] Magnesium Oxide [Mag-Ox] 800 mg PO BID tablet 11/23/16 [Rx] Omeprazole 20 mg PO BID 12/02/16 [History] OxyCODONE/APAP 5/325 [Percocet 5/325 MG] 1 each PO Q4HR PRN 12/02/16 [History] Vit B Cplx C No.13/Folic AC/D3 [Nephrocaps Qt Tablet] 1 each PO DAILY 12/02/16 [ History] Allergies cephalexin [From Keflex] Allergy (Verified 12/05/16 03:02) Hives sulfamethoxazole [From Septra] Allergy (Verified 12/05/16 03:02) Hives trimethoprim [From Septra] Allergy (Verified 12/05/16 03:02) Hives NSAIDS (Non-Steroidal Anti-Inflamma Adverse Reaction (Verified 12/05/16 03:02) See Comments Risk for bleeding All Systems PM: A 10-system review of systems was performed and is negative for pertinent findings except as documented above in the HPI. No chest shortness of breath - Constitutional Vitals: Temp Pulse Resp BP Pulse Ox 98 F 77 16 128/66 96 12/05/16 02:59 12/05/16 05:17 12/05/16 05:17 12/05/16 05:17 12/05/16 05:17 General appearance: Present: A&O X 3, morbidly obese - Head Head exam: Present: atraumatic, normocephalic - Eye Eye exam: Present: PERRL, conjuntiva pink, sclera anicteric Pupils: Present: PERRL - Neck Neck exam general surgery: Present: supple, trachea midline. Absent: lymphadenopathy - Respiratory Respiratory exam: Present: decreased breath sounds, CTAB. Absent: accessory muscle use, rales, rhonchi, wheezes - Cardiovascular Cardiovascular exam: Present: RRR, +S1, +S2. Absent: diastolic murmur, gallop, rubs, systolic murmur - GI/Abdominal GI/Abdominal exam: Present: distended (Large abdominal wound covered by wound VAC), normal bowel sounds, soft, no peritoneal signs. Absent: tenderness - Extremities Exam Extremities exam: Present: pedal edema, warm, radial pulses palpable and symetrical. Absent: calf tenderness, cyanotic - Neurological Exam Neurological exam: Present: CN II-XII intact, oriented X3, no focal deficits. Absent: pronater drift, facial droop, speech deficit - Skin Skin exam: Present: dry. Absent: intact (Left ankle wound, not infected) Internal Med - H&P Results - Labs CBC & Chem 7: 12/05/16 04:25 12/05/16 04:25 Labs: Short CBC 12/05/16 Range/Units 04:25 WBC 10.7 (4.3-11.1) K/mcL Hgb 9.8 L (11.5-15.4) g/dL Hct 31.3 L (35.3-44.9) % Plt Count 262 (140-400) K/mcL Neutrophils # 7.9 (1.6-8.9) K/mcL BMP 12/05/16 04:25 Sodium 135 L Potassium 4.7 H Chloride 100 Carbon Dioxide 25 BUN 55 H Creatinine 0.98 Glucose 132 H Calcium 9.5 Liver Function 12/05/16 Range/Units 04:25 Total Bilirubin 0.2 (0.2-1.2) mg/dL AST 18 (5-34) Units/L ALT 17 (0-55) Units/L Alkaline Phosphatase 78 (38-126) Units/L Albumin 2.7 L (3.5-5.0) g/dL
[2016-12-05] MEDS ORDERED: 0.9 % Sodium Chloride 1,000 ML IVC SCH ×2 (05:45→14:45)
[2016-12-05] MEDS: Gabapentin 300 MG CAPSULE PO SCH ×3 (07:51→21:18)
[2016-12-05] MEDS ORDERED: *HR* Propofol 200 MG/20 ML VIAL IVP ONE (09:00)
[2016-12-05] MEDS ORDERED: Lidocaine -MPF 2% 5 ML VIAL INFILT ONE (09:00)
[2016-12-05 10:28] LABS: Hematocrit 28.4 % (35.3-44.9); Hemoglobin 9.1 g/dL (11.5-15.4); Mean Corpuscular Hemoglobin 27.8 pg (28.0-33.3); Mean Corpuscular Volume 86.9 fL (83.0-100.0); Mean Platelet Volume 12.2 fL (9.4-12.4); Platelet Count 235 K/mcL (140-400); Red Blood Count 3.27 M/mcL (3.82-4.97); Red Cell Distribution Width 14.6 % (11.5-14.5)
[2016-12-05 12:10] LABS: BUN/Creatinine Ratio 62 (6-26); Blood Urea Nitrogen 53 mg/dL (7-20); Calcium 9.1 mg/dL (8.6-10.8); Carbon Dioxide 22 mEq/L (19-29); Chloride 104 mEq/L (98-109); Glucose 102 mg/dL (70-99); Osmolality,Calculated 299 (280-300); Sodium 137 mEq/L (136-145); eGFR For African Americans > 60 (> 60); eGFR For Non-African Americans > 60 (> 60)
--- NOTE | 2016-12-05 12:14 | Anesthesia Evaluation PreOp ---
Date of Encounter: 12/05/16 Time of Encounter: 12:12 - Past History Planned Operation: Enteroscopy Cardiac History: HTN, Hyperlipidemia Pulmonary History: Denies Any Significant HX WAFER FAB OPERATOR History: Denies Any Significant HX, Other (Diabetic Neuropathy) Other Medical History: Diabetes Type II, Thyroid (Hypothyroid) Anesthesia History: No Prior Anesthetic Complications, Past Anesthesia (Exp. Lap.) : No Alcohol Use: none Drug use: none Medications and Allergies Ascorbate Calcium [Vitamin C] 500 mg PO DAILY 10/08/16 [History] Chlorzoxazone 500 mg PO TID 10/08/16 [History] Doxazosin [Cardura] 8 mg PO DAILY 10/08/16 [History] Gabapentin [Neurontin] 600 mg PO TID 10/08/16 [History] Levothyroxine [Synthroid] 100 mcg PO QAM 10/08/16 [History] Lysine [l-Lysine] 1,000 mg PO DAILY 10/08/16 [History] Metformin [Glucophage] 500 mg PO BID 10/08/16 [History] Nystatin POWDER [Nystop] 1 appl TP BID 10/08/16 [History] Silver Sulfadiazine Cream [Silvadene] 1 appl TP DAILY 10/08/16 [History] Docusate [Colace] 100 mg PO BID capsule 10/14/16 [Rx] Sucralfate [Carafate] 1 gm PO QIDAC #120 tablet 10/14/16 [Rx] Folic Acid/Vit Bcomp,C [Renal Vitamin Tablet] 0.8 mg PO DAILY 11/20/16 [History] Glucosamine Sulfate 1,000 mg PO DAILY 11/20/16 [History] Lisinopril [Zestril] 20 mg PO QAM #30 tablet 11/23/16 [Rx] Magnesium Oxide [Mag-Ox] 800 mg PO BID tablet 11/23/16 [Rx] Omeprazole 20 mg PO BID 12/02/16 [History] OxyCODONE/APAP 5/325 [Percocet 5/325 MG] 1 each PO Q4HR PRN 12/02/16 [History] Vit B Cplx C No.13/Folic AC/D3 [Nephrocaps Qt Tablet] 1 tab PO DAILY 12/02/16 [ History] Allergies cephalexin [From Keflex] Allergy (Verified 12/05/16 03:02) Hives sulfamethoxazole [From ] Allergy (Verified 12/05/16 03:02) Hives trimethoprim [From ] Allergy (Verified 12/05/16 03:02) Hives NSAIDS (Non-Steroidal Anti-Inflamma Adverse Reaction (Verified 12/05/16 03:02) See Comments Risk for bleeding - Meds/Allergy Pre-op Review Medications Reviewed: Yes Allergies Reviewed: Yes Beta Blockers on Current Med List: No Anesthesia Results - Labs 12/05/16 09:39 12/05/16 11:40 - Imaging EKG: image reviewed (SR, sinus arrythmia, RBBB, poss septal NH) Anesthesia Exam O2 Sat Height 1.52 m Weight 101.605 kg O2 Sat by Pulse Oximetry 95 O2 Sat by Pulse Oximetry 95 O2 Sat by Pulse Oximetry 96 O2 Sat by Pulse Oximetry 95 O2 Sat by Pulse Oximetry 93 Vital Signs Temp Pulse Resp BP Pulse Ox 98 F 84 16 114/56 93 12/05/16 02:59 12/05/16 02:59 12/05/16 02:59 12/05/16 02:59 12/05/16 02:59 Vital Signs/O2 Sat, Most Current Temp Pulse Resp BP Pulse Ox 98.3 F 95 16 134/72 95 12/05/16 10:50 12/05/16 10:50 12/05/16 10:50 12/05/16 10:50 12/05/16 10:50 Height: 5' Weight: 224# NPO (# of Hours): > 8 hrs Pain Scale: 0 Pain Scale Used: Numeric (1 - 10) - HEENT Pupil (Motor): Pupils equal, EOMI Mallampati: III Teeth: Missing Oral Opening: Greater than 3 - WAFER FAB OPERATOR LOC: Oriented WAFER FAB OPERATOR Motor: Normal RUE, Normal LUE, Normal RLE, Normal LLE, Normal Face WAFER FAB OPERATOR Sensory: Normal: RUE, LUE, RLE, LLE, Face - Cardiac Rhythm: Regular Murmur: None JVD: No Carotid Bruit: No - Pulmonary Breath Sounds: bilateral Clear Respiratory Effort: Symmetrical Anesthesia Assess/Plan ASA Score: 3 (MO, HTN) Modified Vic Scale for Level of Consciousness: Cooperative, oriented, and tranquil Anesthetic Plan: MAC Autologous Blood: Yes Monitoring Plan: Standard Monitors Recovery Plan: Other
[2016-12-05 12:41] LABS: Potassium 5.6 mEq/L (3.5-4.5)
--- NOTE | 2016-12-05 15:27 | Anesthesia Evaluation Post Op ---
Date of Encounter: 12/05/16 Time of Encounter: 15:26 - Vital Signs Vital Signs: see anesthesia record - Lungs Lungs: Rhonchi (same as baseline) - Airway Airway: Non-obstructed - Cardiovascular Regular Rate, Baseline Rhythm - Mental Status Mental Status: Alert & Oriented, Answers Appropriately - Pain Pain Scale: 5 Pain Scale used: Numeric (1 - 10) (same as baseline) - Nausea Vomiting Nausea Vomiting: Not Present - Hydration Hydration: NPO, Has not voided Notes: 12/05/16 15:27 naac - Discharge PostOp Status: Transfer Patient to floor
--- NOTE | 2016-12-05 16:26 | Gastroenterology Consult Note ---
<[place] Bernard - Last Filed: 12/05/16 16:23> Date of Encounter: 12/05/16 Time of Encounter: 12:15 - Assessment and plan (1) Anemia due to GI blood loss Current Visit: No Status: Acute Assessment and plan: Continue to monitor CBC and transfuse PRBC as needed. Plan for enteroscopy. (2) Gastric ulcer Current Visit: No Status: Acute Assessment and plan: EGD 11/20/[address] Ware showed small hiatal hernia, gastritis, few fundic gland polyps, 3mm non-bleeding gastric ulcer. Plan for enteroscopy today. Qualifiers: Gastric ulcer chronicity: chronic Gastric ulcer complication status: without hemorrhage or perforation Qualified Code(s): K25.7 - Chronic gastric ulcer without hemorrhage or perforation (3) Nonhealing surgical wound Current Visit: No Status: Chronic Assessment and plan: Wound vac in place, recommend consulting wound care. Qualifiers: Encounter type: initial encounter Qualified Code(s): T81.89XA - Other complications of procedures, not elsewhere classified, initial encounter - Time Spent With Patient Total time spent is greater than 50% in coordination of care (as documented) at patient's floor/unit and/or counseling patient: GI History of Present Illness - Data of Consult Patient: new to practice Consult date: 12/05/16 Requesting Physician: Kimberly Daniels - Consult Narrative Reason for consult: anemia History of present illness: Ms. Covarrubias is a 76 year old female with PMHx of DM, GI bleed, HLD, HTN, CKD stage III, gastric perforation, who presented to the ED with c/o rectal bleeding in large amounts that started the night prior to admission. Hgb on admission was 9.8 and this AM Hgb 9.1. She had EGD 11/20 with non-bleeding gastric ulcer and colonoscopy 11/23 with hyperplastic polyp. FOBT positive on admission. She denies fever, chills, abdominal pain, melena, hematochezia. Procedures: Colonoscopy 11/23/2016 Dr. Ware: Poor prep, 2mm rectal hyperplastic polyp, diverticulosis EGD 11/20/2016 Dr. Ware: Small hiatal hernia, gastritis, few fundic gland polyps, 3mm non-bleeding gastric ulcer NSAIDs: None Anticoagulation: None Past Med Surg Social Fam HX - Past Medical History Medical history: arthritis, diabetes, GI bleed, hyperlipidemia, hypertension, renal disease, thyroid disease, other Psychiatric history: no psych history - Past Surgical History Surgical History: cholecystectomy, other - Social History Smoking Status: Former smoker Smokeless Tobacco Status: No Alcohol use: none Drug use: none - Family History Mother Living Status: Hx Family Endocrine Disorder: Yes (DM) - Gastrointestinal Gastrointestinal: Present: as per HPI - Constitutional Constitutional: as per HPI - EENT Eyes: as per HPI Ears: Present: as per HPI Nose, mouth and throat: Present: as per HPI - Cardiovascular Cardiovascular ROS: Present: as per HPI - Respiratory Respiratory IM: Present: as per HPI - Genitourinary Genitourinary: Absent: change in color, Urinary frequency - Neurological ROS Neurological GI: Present: as per HPI - Hematologic/Lymphatic Hematologic/Lymphatic pediatric: Present: as per HPI - Musculoskeletal Musculoskeletal ROS GI: Present: as per HPI - Integumentary Integumentary GI: Present: as per HPI - Psychiatric ROS Psychiatric GI: Present: as per HPI - Endocrine Endocrine IM: Present: as per HPI - Constitutional Vitals: Temp Pulse Resp BP Pulse Ox 98.6 F 79 16 113/56 95 12/05/16 14:10 12/05/16 14:10 12/05/16 14:10 12/05/16 14:10 12/05/16 14:10 General appearance: Present: cooperative, A&O X 3, no acute distress, answers questions appropriately - Head Head exam: Present: atraumatic, normocephalic - Eye Eye exam: Present: normal appearance, sclera anicteric - ENT ENT exam: Present: mucous membranes dry - Neck Neck exam general surgery: Present: normal inspection, trachea midline - Respiratory Respiratory exam: Present: decreased breath sounds, CTAB. Absent: rales, rhonchi - Cardiovascular Cardiovascular exam: Present: RRR, +S1, +S2 - GI/Abdominal GI/Abdominal exam: Present: distended, soft, no peritoneal signs. Absent: firm , guarding, tenderness Additional comments: midline surgical wound with wound-vac in place - Rectal Rectal exam: Present: deferred - Extremities Exam Extremities exam: Present: warm - Neurological Exam Neurological exam: Present: no focal deficits - Psychiatric Psychiatric exam: Present: normal affect, normal mood - Skin Skin exam: Present: dry, intact, normal color, warm Results - Labs CBC & Chem 7: 12/05/16 09:39 12/05/16 11:40 Labs: Last Result Calcium 9.1 mg/dL (8.6-10.8) 12/05/16 11:40 Stool Occult Blood Positive (Negative) A 12/05/16 03:20 Entire Visit Hgb 9.1 g/dL (11.5-15.4) L 12/05/16 09:39 Hct 28.4 % (35.3-44.9) L 12/05/16 09:39 PT 11.1 Seconds (9.4-12.1) 12/05/16 04:25 Total Bilirubin 0.2 mg/dL (0.2-1.2) 12/05/16 04:25 AST 18 Units/L (5-34) 12/05/16 04:25 ALT 17 Units/L (0-55) 12/05/16 04:25 - ABG ABG results: PT/INR, D-dimer PT 11.1 Seconds (9.4-12.1) 12/05/16 04:25 Consult Discharge Plan - Plan Referrals: Nica Pryor, MARKET RESEARCH COORDINATOR [Primary Care Provider] - <Mignon Alcantara - Last Filed: 12/05/16 17:46> Date of Encounter: 12/05/16 Time of Encounter: 12:00 - Time Spent With Patient Total time spent is greater than 50% in coordination of care (as documented) at patient's floor/unit and/or counseling patient: GI History of Present Illness - Data of Consult Requesting Physician: Kimberly Daniels - Consult Narrative History of present illness: Ms. Covarrubias is a 76 year old female - Constitutional Vitals: Temp Pulse Resp BP Pulse Ox 98.6 F 79 16 113/56 95 12/05/16 14:10 12/05/16 14:10 12/05/16 14:10 12/05/16 14:10 12/05/16 14:10 Results - Labs CBC & Chem 7: 12/05/16 09:39 12/05/16 11:40 Labs: Last Result Calcium 9.1 mg/dL (8.6-10.8) 12/05/16 11:40 Stool Occult Blood Positive (Negative) A 12/05/16 03:20 Entire Visit Hgb 9.1 g/dL (11.5-15.4) L 12/05/16 09:39 Hct 28.4 % (35.3-44.9) L 12/05/16 09:39 PT 11.1 Seconds (9.4-12.1) 12/05/16 04:25 Total Bilirubin 0.2 mg/dL (0.2-1.2) 12/05/16 04:25 AST 18 Units/L (5-34) 12/05/16 04:25 ALT 17 Units/L (0-55) 12/05/16 04:25 - ABG ABG results: PT/INR, D-dimer PT 11.1 Seconds (9.4-12.1) 12/05/16 04:25 - Attending Attestation I examined this patient and my medical decision-making was reviewed with the SYSTEMS ENG/PA/Advanced Practice Nurse/Resident Physician. I agree with the documented findings, disposition and treatment plan as described except to the extent set forth below.
[2016-12-05] MEDS ORDERED: Pantoprazole 40 MG VIAL IVP SCH (18:00)
--- NOTE | 2016-12-05 18:23 | Event Note ---
Date of Encounter: 12/05/16 Time of Encounter: 12:34 Physicians order, This claim was reviewed by [employer] [facility], a member of Utilization review committee, has determined and Dr Gutierrez has agreed that status is to be changed to observation using Code 44. December 05, 2016 12:34
[2016-12-05] MEDS: SODIUM CHLORIDE/NAHCO3/KCL/PEG 4,000 ML SOLN.RECON PO SCH (21:18)
[2016-12-05] MEDS: Lidocaine 4% CREAM (LMX) 5 GM TP SCH ×3 (21:19→21:37)
[2016-12-06 04:21] LABS: Hematocrit 28.5 % (35.3-44.9); Mean Corpuscular HGB Conc 31.6 g/dL (31.6-35.5); Mean Corpuscular Volume 88.5 fL (83.0-100.0); Mean Platelet Volume 11.2 fL (9.4-12.4); Platelet Count 244 K/mcL (140-400); Red Blood Count 3.22 M/mcL (3.82-4.97); Red Cell Distribution Width 14.6 % (11.5-14.5)
[2016-12-06 04:41] LABS: BUN/Creatinine Ratio 47 (6-26); Calcium 9.2 mg/dL (8.6-10.8); Carbon Dioxide 25 mEq/L (19-29); Chloride 103 mEq/L (98-109); Glucose 109 mg/dL (70-99); Osmolality,Calculated 289 (280-300); Potassium 4.6 mEq/L (3.5-4.5); Sodium 135 mEq/L (136-145); eGFR For African Americans > 60 (> 60); eGFR For Non-African Americans > 60 (> 60)
[2016-12-06 04:51] LABS: Blood Urea Nitrogen 37 mg/dL (7-20)
[2016-12-06] MEDS: Gabapentin 300 MG CAPSULE PO SCH ×3 (07:47→20:41)
[2016-12-06] MEDS: Lidocaine 4% CREAM (LMX) 5 GM TP SCH ×3 (07:47→20:42)
[2016-12-06] MEDS: SODIUM CHLORIDE/NAHCO3/KCL/PEG 4,000 ML SOLN.RECON PO SCH (07:48)
--- NOTE | 2016-12-06 09:30 | Internal Med Progress Note ---
<Jareth Bentley - Last Filed: 12/06/16 17:25> Date of Encounter: 12/06/16 Time of Encounter: 09:21 - Assessment and plan (1) Anemia due to GI blood loss Current Visit: No Status: Acute Assessment and plan: Patient presented with blood per rectum with positive Hemoccult. Patient recent colonoscopy with polypectomies and EGD demonstrating nonbleeding gastric ulcer both one week ago. Since admission she has not had hematochezia for melena. Patient underwent enteroscopy last evening per GI team. Findings of significant hard stool and rectal oozing. Recommendations per GI is to undergo 1 L GoLYTELY for bowel clearing. - Hemoglobin stable. - Gastroenterology following. -Transfuse PRBCs as needed. - Repeat CBC with a.m. labs. - Continue holding anticoagulation. (2) HTN (hypertension) Current Visit: No Status: Chronic Assessment and plan: Patient has a history of hypertension, antihypertensives held secondary to volume loss. Blood pressures stable. - Continue to hold lisinopril. - Hydralizine 10mg IV Q6hrs with SBP > 160 Qualifiers: Hypertension type: essential hypertension Qualified Code(s): I10 - Essential (primary) hypertension (3) Diabetes Current Visit: No Status: Chronic Assessment and plan: Patient has a history of type 2 diabetes. Patient's blood glucoses are stable and appropriate. Qualifiers: Diabetes mellitus type: type 2 Diabetes mellitus complication status: with unspecified complications Diabetes mellitus termite renewal inspector insulin use: without termite renewal inspector use Qualified Code(s): E11.8 - Type 2 diabetes mellitus with unspecified complications (4) Hypothyroid Current Visit: No Status: Chronic Assessment and plan: Continue Levothyroxine 100mcg daily am. Qualifiers: Hypothyroidism type: unspecified Qualified Code(s): E03.9 - Hypothyroidism , unspecified (5) Gastric ulcer Current Visit: No Status: Acute Assessment and plan: Recent endoscopy with nonbleeding gastric ulcer identified. - continue omeprazole 20 mg by mouth twice a day. Qualifiers: Gastric ulcer chronicity: chronic Gastric ulcer complication status: without hemorrhage or perforation Qualified Code(s): K25.7 - Chronic gastric ulcer without hemorrhage or perforation (6) DVT prophylaxis Current Visit: No Status: Acute Assessment and plan: continue mariam hose stockings. hold anticoagulation with blood per rectum. - Subjective Interval history: Ms. Covarrubias has been seen in the [facility] to patient bedside this morning. She feels tired and has some abdominal discomfort around the site of her wound VAC. Just complains of some discomfort in her rectum secondary to her procedure last evening. She did have a bowel movement this morning which she said needed assistance to to come out since it was so hard. She was unsure if there was any blood. She has been tolerating by mouth intake, denies chest pain palpitations or chest pressure. She says she has chronic discomfort in her legs. - Constitutional Vitals: Temp Pulse Resp BP Pulse Ox 98.2 F 73 18 145/72 93 12/06/16 08:10 12/06/16 08:10 12/06/16 08:10 12/06/16 08:10 12/06/16 08:10 General appearance: Present: A&O X 3, morbidly obese - Head Head exam: Present: atraumatic, normocephalic - Eye Eye exam: Present: PERRL, conjuntiva pink, sclera anicteric Pupils: Present: PERRL - ENT ENT exam: Present: mucous membranes moist - Neck Neck exam general surgery: Present: supple, trachea midline. Absent: lymphadenopathy - Respiratory Respiratory exam: Present: CTAB. Absent: accessory muscle use, rales, rhonchi, wheezes - Cardiovascular Cardiovascular exam: Present: RRR, +S1, +S2. Absent: diastolic murmur, gallop, rubs, systolic murmur - GI/Abdominal Additional comments: Obese, soft, nontender to palpation, wound VAC in place without signs of drainage - Extremities Exam Extremities exam: Present: warm, radial pulses palpable and symetrical. Absent : calf tenderness, cyanotic, pedal edema Additional comments: Dry skin the bilateral lower extremities. - Neurological Exam Neurological exam: Present: alert, no focal deficits. Absent: facial droop, speech deficit - Psychiatric Psychiatric exam: Present: flat affect Internal Medicine: Result - Labs CBC & Chem 7: 12/06/16 04:10 12/06/16 04:10 Labs: Short CBC 12/05/16 12/06/16 Range/Units 09:39 04:10 WBC 11.9 H 8.0 (4.3-11.1) K/mcL Hgb 9.1 L 9.0 L (11.5-15.4) g/dL Hct 28.4 L 28.5 L (35.3-44.9) % Plt Count 235 244 (140-400) K/mcL [facility] 12/05/16 12/06/16 11:40 04:10 Sodium 137 135 L Potassium 5.6 H 4.6 H D Chloride 104 103 Carbon Dioxide 22 25 BUN 53 H 37 H D Creatinine 0.86 0.79 Glucose 102 H 109 H Calcium 9.1 9.2 - ABG Interpretation ABG results: PT/INR, D-dimer PT 11.1 Seconds (9.4-12.1) 12/05/16 04:25 - VTE Documentation of Mechanical Device: Intermittent pneumatic compression device Consult Discharge Plan - Plan Referrals: Nica Pryor CNP [Primary Care Provider] - <Howie De Anda - Last Filed: 12/06/16 17:57> Date of Encounter: 12/06/16 - Constitutional Vitals: Temp Pulse Resp BP Pulse Ox 98.2 F 85 16 166/62 94 12/06/16 12:02 12/06/16 12:02 12/06/16 12:02 12/06/16 12:02 12/06/16 12:02 Internal Medicine: Result - Labs CBC & Chem 7: 12/06/16 04:10 12/06/16 04:10 Labs: Short CBC 12/06/16 Range/Units 04:10 WBC 8.0 (4.3-11.1) K/mcL Hgb 9.0 L (11.5-15.4) g/dL Hct 28.5 L (35.3-44.9) % Plt Count 244 (140-400) K/mcL [facility] 12/06/16 04:10 Sodium 135 L Potassium 4.6 H D Chloride 103 Carbon Dioxide 25 BUN 37 H D Creatinine 0.79 Glucose 109 H Calcium 9.2 - ABG Interpretation ABG results: PT/INR, D-dimer PT 11.1 Seconds (9.4-12.1) 12/05/16 04:25 - Attending Attestation I examined this patient and my medical decision-making was reviewed with the Resident Physician, Dr Bentley. I agree with the documented findings, disposition and treatment plan as described except to the extent set forth below. On exam she is in mild distress due to pain. Heart is regular S1-S2. Abdomen is obese soft, nontender to palpation, examination of the rectal area reveals perianal dried blood, external hemorrhoids. Rectal exam was deferred due to pain. Bowel regimen. Monitor hemoglobin and hematocrit. Discussed the case with GI would like to continue with GoLYTELY for colon cleansing.
[2016-12-06] MEDS ORDERED: *HR* OxyCODONE/APAP 5/325 TABLET PO PRN (11:42)
[2016-12-06] MEDS ORDERED: Glycerin RECTAL Suppository RC ONE (14:26)
[2016-12-07 04:48] LABS: Basophils % 0.5 %; Eosinophils # 0.3 K/mcL (0.0-0.6); Eosinophils % 3.3 %; Hematocrit 28.4 % (35.3-44.9); Immature Granulocytes % 0.5 % (0-4); Lymphocytes # 1.5 K/mcL (0.6-4.6); Lymphocytes % 18.7 %; Mean Corpuscular HGB Conc 31.7 g/dL (31.6-35.5); Mean Corpuscular Hemoglobin 27.8 pg (28.0-33.3); Mean Corpuscular Volume 87.7 fL (83.0-100.0); Mean Platelet Volume 10.9 fL (9.4-12.4); Monocytes # 0.5 K/mcL (0.0-1.3); Monocytes % 6.3 %; Neutrophils # 5.5 K/mcL (1.6-8.9); Platelet Count 264 K/mcL (140-400); Red Blood Count 3.24 M/mcL (3.82-4.97); Red Cell Distribution Width 14.5 % (11.5-14.5); Segmented Neutrophils % 70.7 %
[2016-12-07 05:06] LABS: Alanine Aminotransferase 15 Units/L (0-55); Albumin 2.4 g/dL (3.5-5.0); Albumin/Globulin Ratio 0.6 (1.1-2.2); Alkaline Phosphatase 75 Units/L (38-126); Aspartate Amino Transferase 17 Units/L (5-34); BUN/Creatinine Ratio 33 (6-26); Bilirubin,Total 0.3 mg/dL (0.2-1.2); Calcium 9.3 mg/dL (8.6-10.8); Carbon Dioxide 30 mEq/L (19-29); Chloride 100 mEq/L (98-109); Glucose 122 mg/dL (70-99); Magnesium 1.4 mg/dL (1.6-2.6); Osmolality,Calculated 286 (280-300); Potassium 4.1 mEq/L (3.5-4.5); Sodium 135 mEq/L (136-145); Total Protein 6.4 g/dL (6.0-8.3); eGFR For African Americans > 60 (> 60); eGFR For Non-African Americans > 60 (> 60)
[2016-12-07 05:08] LABS: Blood Urea Nitrogen 25 mg/dL (7-20)
[2016-12-07] MEDS: Gabapentin 300 MG CAPSULE PO SCH ×3 (08:36→20:28)
[2016-12-07] MEDS: Lidocaine 4% CREAM (LMX) 5 GM TP SCH ×2 (08:38→16:07)
[2016-12-07] MEDS: SODIUM CHLORIDE/NAHCO3/KCL/PEG 4,000 ML SOLN.RECON PO SCH (10:23)
[2016-12-07] MEDS: Magnesium Oxide 400 MG TABLET PO SCH ×2 (10:41→20:28)
--- NOTE | 2016-12-07 13:40 | Internal Med Progress Note ---
<Jareth Bentley - Last Filed: 12/07/16 13:37> Date of Encounter: 12/07/16 Time of Encounter: 09:30 - Assessment and plan (1) Anemia due to GI blood loss Current Visit: No Status: Acute Assessment and plan: Patient presented with blood per rectum with positive Hemoccult. Patient recent colonoscopy with polypectomies and EGD demonstrating nonbleeding gastric ulcer both one week ago. Since admission she has not had hematochezia for melena. Patient underwent enteroscopy last evening per GI team. Findings of significant hard stool and rectal oozing. Recommendations per GI is to undergo 1 L GoLYTELY for bowel clearing. - Tolerating GoLYTELY bowel cleansing. Plan: -Continue GoLYTELY bowel cleansing - Hemoglobin stable - Gastroenterology following (2) HTN (hypertension) Current Visit: No Status: Chronic Assessment and plan: Patient has a history of hypertension, antihypertensives held secondary to volume loss. Blood pressures stable. - Continue to hold lisinopril. - Hydralizine 10mg IV Q6hrs with SBP > 160 Qualifiers: Hypertension type: essential hypertension Qualified Code(s): I10 - Essential (primary) hypertension (3) Diabetes Current Visit: No Status: Chronic Assessment and plan: Patient has a history of type 2 diabetes. Patient's blood glucoses are stable and appropriate. Qualifiers: Diabetes mellitus type: type 2 Diabetes mellitus complication status: with unspecified complications Diabetes mellitus home housekeeper insulin use: without usp use Qualified Code(s): E11.8 - Type 2 diabetes mellitus with unspecified complications (4) Hypothyroid Current Visit: No Status: Chronic Assessment and plan: Continue Levothyroxine 100mcg daily am. Qualifiers: Hypothyroidism type: unspecified Qualified Code(s): E03.9 - Hypothyroidism , unspecified (5) Gastric ulcer Current Visit: No Status: Acute Assessment and plan: Recent endoscopy with nonbleeding gastric ulcer identified. - continue omeprazole 20 mg by mouth twice a day. Qualifiers: Gastric ulcer chronicity: chronic Gastric ulcer complication status: without hemorrhage or perforation Qualified Code(s): K25.7 - Chronic gastric ulcer without hemorrhage or perforation (6) DVT prophylaxis Current Visit: No Status: Acute Assessment and plan: continue mariam hose stockings. hold anticoagulation with blood per rectum. - SCDs not tolerated secondary to leg pain. Patient is unable to tolerate anticoagulation as she has GI bleeding. - Subjective Interval history: Ms. Covarrubias has been seen and evaluated at patient's bedside this morning. Patient is awake alert and interactive and denies any acute distress. She states she would like to go back to the residential but still continues to feel constipated with very little bowel movement production. Bowel movements she has had have been hard and occasionally streaked with blood. If also been a little bit discomforting when passing a bowel movement. She understands now that she needs to complete bowel cleansing as she has demonstrated significant amount of stool. She denies any other discomforts pains or concerns at this time. - Constitutional Vitals: Temp Pulse Resp BP Pulse Ox 98.1 F 70 16 140/55 93 12/07/16 10:30 12/07/16 10:30 12/07/16 10:30 12/07/16 10:30 12/07/16 10:30 General appearance: Present: A&O X 3, morbidly obese - Head Head exam: Present: atraumatic, normocephalic - Eye Eye exam: Present: PERRL, conjuntiva pink, sclera anicteric Pupils: Present: PERRL - Neck Neck exam general surgery: Present: supple, trachea midline. Absent: lymphadenopathy - Respiratory Respiratory exam: Present: CTAB. Absent: accessory muscle use, rales, rhonchi, wheezes - Cardiovascular Cardiovascular exam: Present: RRR, +S1, +S2. Absent: diastolic murmur, gallop, rubs, systolic murmur - GI/Abdominal GI/Abdominal exam: Present: hypoactive bowel sounds (Obese, soft, nontender to palpation, wound VAC in place without signs of drainage) - Extremities Exam Extremities exam: Present: warm, radial pulses palpable and symetrical. Absent : calf tenderness, cyanotic, pedal edema - Neurological Exam Neurological exam: Present: alert, oriented X3, no focal deficits. Absent: pronater drift, facial droop, speech deficit - Psychiatric Psychiatric exam: Present: normal affect, normal mood Internal Medicine: Result - Labs CBC & Chem 7: 12/07/16 04:15 12/07/16 04:15 Labs: Short CBC 12/07/16 Range/Units 04:15 WBC 7.8 (4.3-11.1) K/mcL Hgb 9.0 L (11.5-15.4) g/dL Hct 28.4 L (35.3-44.9) % Plt Count 264 (140-400) K/mcL Neutrophils # 5.5 (1.6-8.9) K/mcL BMP 12/07/16 04:15 Sodium 135 L Potassium 4.1 Chloride 100 Carbon Dioxide 30 H BUN 25 H D Creatinine 0.75 Glucose 122 H Calcium 9.3 Liver Function 12/07/16 Range/Units 04:15 Total Bilirubin 0.3 (0.2-1.2) mg/dL AST 17 (5-34) Units/L ALT 15 (0-55) Units/L Alkaline Phosphatase 75 (38-126) Units/L Albumin 2.4 L (3.5-5.0) g/dL - ABG Interpretation ABG results: PT/INR, D-dimer PT 11.1 Seconds (9.4-12.1) 12/05/16 04:25 - VTE Documentation of Mechanical Device: Intermittent pneumatic compression device Consult Discharge Plan - Plan Referrals: Nica Pryor CNP [Primary Care Provider] - <Howie De Anda - Last Filed: 12/07/16 18:39> Date of Encounter: 12/07/16 - Constitutional Vitals: Temp Pulse Resp BP Pulse Ox 97.7 F 71 16 158/55 93 12/07/16 14:09 12/07/16 14:09 12/07/16 14:09 12/07/16 14:09 12/07/16 14:09 Internal Medicine: Result - Labs CBC & Chem 7: 12/07/16 04:15 12/07/16 04:15 Labs: Short CBC 12/07/16 Range/Units 04:15 WBC 7.8 (4.3-11.1) K/mcL Hgb 9.0 L (11.5-15.4) g/dL Hct 28.4 L (35.3-44.9) % Plt Count 264 (140-400) K/mcL Neutrophils # 5.5 (1.6-8.9) K/mcL BMP 12/07/16 04:15 Sodium 135 L Potassium 4.1 Chloride 100 Carbon Dioxide 30 H BUN 25 H D Creatinine 0.75 Glucose 122 H Calcium 9.3 Liver Function 12/07/16 Range/Units 04:15 Total Bilirubin 0.3 (0.2-1.2) mg/dL AST 17 (5-34) Units/L ALT 15 (0-55) Units/L Alkaline Phosphatase 75 (38-126) Units/L Albumin 2.4 L (3.5-5.0) g/dL - ABG Interpretation ABG results: PT/INR, D-dimer PT 11.1 Seconds (9.4-12.1) 12/05/16 04:25 - Attending Attestation I examined this patient and my medical decision-making was reviewed with the Resident Physician, Dr. Bentley. I agree with the documented findings, disposition and treatment plan as described except to the extent set forth below. Patient has has several bowel movements today. Her abdominal pain has improved. Rectal pain has improved since yesterday. On exam she is in no acute distress abdomen is soft tender to palpation diffusely but with no guarding or rebound. Will continue with GoLYTELY per GI recommendations and consider discharging her tomorrow.
[2016-12-08 05:16] LABS: Basophils # 0.1 K/mcL (0.0-0.2); Basophils % 0.9 %; Eosinophils # 0.2 K/mcL (0.0-0.6); Eosinophils % 3.4 %; Hematocrit 30.5 % (35.3-44.9); Hemoglobin 9.4 g/dL (11.5-15.4); Immature Granulocytes % 0.4 % (0-4); Lymphocytes # 1.4 K/mcL (0.6-4.6); Lymphocytes % 19.6 %; Mean Corpuscular HGB Conc 30.8 g/dL (31.6-35.5); Mean Corpuscular Volume 87.6 fL (83.0-100.0); Mean Platelet Volume 11.4 fL (9.4-12.4); Monocytes # 0.4 K/mcL (0.0-1.3); Monocytes % 6.3 %; Neutrophils # 4.9 K/mcL (1.6-8.9); Platelet Count 280 K/mcL (140-400); Red Blood Count 3.48 M/mcL (3.82-4.97); Red Cell Distribution Width 14.5 % (11.5-14.5); Segmented Neutrophils % 69.4 %
[2016-12-08 05:29] LABS: Alanine Aminotransferase 16 Units/L (0-55); Albumin 2.5 g/dL (3.5-5.0); Albumin/Globulin Ratio 0.6 (1.1-2.2); Alkaline Phosphatase 82 Units/L (38-126); Aspartate Amino Transferase 20 Units/L (5-34); BUN/Creatinine Ratio 29 (6-26); Bilirubin,Total 0.6 mg/dL (0.2-1.2); Blood Urea Nitrogen 21 mg/dL (7-20); Calcium 9.3 mg/dL (8.6-10.8); Carbon Dioxide 29 mEq/L (19-29); Chloride 102 mEq/L (98-109); Globulin 4.2 g/dL (2.4-3.5); Glucose 109 mg/dL (70-99); Osmolality,Calculated 292 (280-300); Sodium 139 mEq/L (136-145); Total Protein 6.7 g/dL (6.0-8.3); eGFR For African Americans > 60 (> 60); eGFR For Non-African Americans > 60 (> 60)
[2016-12-08] MEDS: Lidocaine 4% CREAM (LMX) 5 GM TP SCH (05:43)
[2016-12-08] MEDS: Magnesium Oxide 400 MG TABLET PO SCH (07:59)
[2016-12-08] MEDS: Gabapentin 300 MG CAPSULE PO SCH (07:59)
--- NOTE | 2016-12-08 11:12 | Discharge Summary ---
<Jareth Bentley - Last Filed: 12/08/16 16:03> Date of Encounter: 12/08/16 Time of Encounter: 11:03 - Discharge Diagnosis (1) Anemia due to GI blood loss Priority: Primary Status: Acute (2) HTN (hypertension) Priority: Secondary Status: Chronic Qualifiers: Hypertension type: essential hypertension Qualified Code(s): I10 - Essential (primary) hypertension (3) Diabetes Priority: Secondary Status: Chronic Qualifiers: Diabetes mellitus type: type 2 Diabetes mellitus complication status: with unspecified complications Diabetes mellitus correction insulin use: without correction use Qualified Code(s): E11.8 - Type 2 diabetes mellitus with unspecified complications (4) Hypothyroid Priority: Secondary Status: Chronic Qualifiers: Hypothyroidism type: unspecified Qualified Code(s): E03.9 - Hypothyroidism , unspecified (5) Gastric ulcer Priority: Secondary Status: Acute Qualifiers: Gastric ulcer chronicity: chronic Gastric ulcer complication status: without hemorrhage or perforation Qualified Code(s): K25.7 - Chronic gastric ulcer without hemorrhage or perforation - Discharge Medications Prescriptions: OxyCODONE/APAP 5/325 [Percocet 5/325 MG] 1 each PO Q4HR PRN #12 tablet PRN Reason: Pain Chlorzoxazone 500 mg PO TID #6 tablet Sennosides [Senna] 8.6 mg PO BID #14 tablet Home Medications: Ascorbate Calcium [Vitamin C] 500 mg PO DAILY 10/08/16 [History] Gabapentin [Neurontin] 600 mg PO TID 10/08/16 [History] Levothyroxine [Synthroid] 100 mcg PO QAM 10/08/16 [History] Lysine [l-Lysine] 1,000 mg PO DAILY 10/08/16 [History] Metformin [Glucophage] 500 mg PO BID 10/08/16 [History] Nystatin POWDER [Nystop] 1 appl TP BID 10/08/16 [History] Silver Sulfadiazine Cream [Silvadene] 1 appl TP DAILY 10/08/16 [History] Docusate [Colace] 100 mg PO BID capsule 10/14/16 [Rx] Sucralfate [Carafate] 1 gm PO QIDAC #120 tablet 10/14/16 [Rx] Folic Acid/Vit Bcomp,C [Renal Vitamin Tablet] 0.8 mg PO DAILY 11/20/16 [History] Glucosamine Sulfate 1,000 mg PO DAILY 11/20/16 [History] Lisinopril [Zestril] 20 mg PO QAM #30 tablet 11/23/16 [Rx] Magnesium Oxide [Mag-Ox] 800 mg PO BID tablet 11/23/16 [Rx] Omeprazole 20 mg PO BID 12/02/16 [History] Vit B Cplx C No.13/Folic AC/D3 [Nephrocaps Qt Tablet] 1 tab PO DAILY 12/02/16 [ History] Chlorzoxazone 500 mg PO TID #6 tablet 12/08/16 [Rx] OxyCODONE/APAP 5/325 [Percocet 5/325 MG] 1 each PO Q4HR PRN #12 tablet 12/08/16 [Rx] Sennosides [Senna] 8.6 mg PO BID #14 tablet 12/08/16 [Rx] Allergies/Adverse Reactions: Allergies cephalexin [From Keflex] Allergy (Verified 12/05/16 03:02) Hives sulfamethoxazole [From Septra] Allergy (Verified 12/05/16 03:02) Hives trimethoprim [From Septra] Allergy (Verified 12/05/16 03:02) Hives NSAIDS (Non-Steroidal Anti-Inflamma Adverse Reaction (Verified 12/05/16 03:02) See Comments Risk for bleeding Date of admission: 12/05/16 05:39 Primary care physician: Nica Pryor CNP Consults: 12/05/16 08:11 Consult to Gastroenterology [CONS] Routine Consulting Provider: Gastroenterology Izzy Reason for Consult: GI bleed, 2wks ago colonoscopy that demonstrated non- bleeding gastric ulcer. Polyps removed from colon. recurrent bleed. Gen. surgery recommends GI consult for small bowel evaluation. Call Completed: Yes Discharging clinician: Jareth Bentley Anticipated date of discharge: 12/08/16 - Patient Status Disposition: Transfer Inpatient Rehab Fac Condition: Fair Functional capacity at discharge: uses cane/walker Overall status at discharge: patient is progressing back to baseline - Discharge Instructions Instructions: Anemia (GEN) Follow Up With: Nica Pryor CNP [Primary Care Provider] - Additional Instructions: Participate with physical therapy. Take medications as prescribed. - Diet and Activity Activity: as per physical therapy Diet: diabetic diet Interval History: Ms. Covarrubias 76F past medical history of GI bleed, gastric perforation , abdominal wound, diabetes type 2 not insulin-dependent, hypertension who came to the emergency room complaining of rectal bleed in large amounts and was admitted to the inpatient medical floor. Anticoagulation was held. Stool was positive patient was started on normal saline blood, pressure medications were held. She was found to have a hemoglobin around 9.0 likely secondary to bleeding the GI tract. Gastroenterology was consult today. Gen. surgery followed up on patient's abdominal wound with wound VAC. Patient underwent interests copy by gastroenterology and found to have rectal oozing and lots of solid stool. Patient had been constipated prior to admission. Patient was started on 3 days bowel cleansing with GoLYTELY. Throughout inpatient stay patient's hemoglobin stayed around 9.0-9.1, MCV was 86 iron studies drawn demonstrating an iron level of 31 and percent saturation of 8. Patient's vitals stayed stable throughout her inpatient stay. Patient was on filler sifter helper without any acute events. Patient was seen and evaluated on 12/08/2016 and deemed stable for discharge back to rehabilitation facility. Patient is provided scripts the time of discharge. Hospital course: Ms. Covarrubias is a 76 year old female - Time Spent with Patient Total time spent providing and/or coordinating discharge services: - Constitutional Vitals: Temp Pulse Resp BP Pulse Ox 98.9 F 98 20 135/94 95 12/08/16 08:00 12/08/16 08:00 12/08/16 08:00 12/08/16 08:00 12/08/16 08:00 General appearance: Present: A&O X 3, morbidly obese - Head Head exam: Present: atraumatic, normocephalic - Eye Eye exam: Present: PERRL, conjuntiva pink, sclera anicteric Pupils: Present: PERRL - ENT ENT exam: Present: mucous membranes moist - Neck Neck exam general surgery: Present: supple, trachea midline. Absent: lymphadenopathy - Respiratory Respiratory exam: Present: CTAB. Absent: accessory muscle use, rales, rhonchi, wheezes - Cardiovascular Cardiovascular exam: Present: RRR, +S1, +S2. Absent: diastolic murmur, gallop, rubs, systolic murmur - GI/Abdominal GI/Abdominal exam: Present: normal bowel sounds, soft, no peritoneal signs. Absent: distended, tenderness Additional comments: wound vac in place with out signs of drainage or erythema. - Extremities Exam Extremities exam: Present: warm, radial pulses palpable and symetrical. Absent : calf tenderness, cyanotic, pedal edema - Neurological Exam Neurological exam: Present: alert, oriented X3, no focal deficits. Absent: pronater drift, facial droop, speech deficit - Psychiatric Psychiatric exam: Present: normal affect, normal mood - VTE Documentation of Mechanical Device: Intermittent pneumatic compression device <Howie De Anda - Last Filed: 12/08/16 18:13> Date of Encounter: 12/08/16 Date of admission: 12/05/16 05:39 Primary care physician: Nica Pryor CNP Consults: 12/05/16 08:11 Consult to Gastroenterology [CONS] Routine Consulting Provider: Gastroenterology Izzy Reason for Consult: GI bleed, 2wks ago colonoscopy that demonstrated non- bleeding gastric ulcer. Polyps removed from colon. recurrent bleed. Gen. surgery recommends GI consult for small bowel evaluation. Call Completed: Yes Hospital course: Ms. Covarrubias is a 76 year old female - Time Spent with Patient Total time spent providing and/or coordinating discharge services: - Constitutional Vitals: Temp Pulse Resp BP Pulse Ox 98.5 F 75 19 132/75 95 12/08/16 11:16 12/08/16 11:16 12/08/16 11:16 12/08/16 11:16 12/08/16 11:16 - Attending Attestation I examined this patient and my medical decision-making was reviewed with the Resident Physician, Dr Jareth Bentley. I agree with the documented findings, disposition and treatment plan as described except to the extent set forth below. Patient appears in no acute distress. She had no further rectal bleeding. She is awake alert oriented 3. Abdomen is soft nontender nondistended. Wound VAC is in place. We will discharge the patient to the senior living. Start bowel regimen. Hold stool softeners only if the patient has diarrhea. Avoid stool bulking agents. Follow up closely with primary care physician. I have personally spent 35 minutes coordinating this discharge.
--- NOTE | 2016-12-08 11:17 | Physician Discharge Referral ---
<Jareth Bentley - Last Filed: 12/08/16 11:16> [facility] Referral Info Transfer To: ECF Provider in Charge after Transfer: PCP Institutional Level of Care: Skilled - Diagnosis (1) Anemia due to GI blood loss Priority: Primary Status: Acute (2) HTN (hypertension) Priority: Secondary Status: Chronic (3) Diabetes Priority: Secondary Status: Chronic (4) Hypothyroid Priority: Secondary Status: Chronic (5) Gastric ulcer Priority: Secondary Status: Acute - Transfer Medications Prescriptions: OxyCODONE/APAP 5/325 [Percocet 5/325 MG] 1 each PO Q4HR PRN #12 tablet PRN Reason: Pain Chlorzoxazone 500 mg PO TID #6 tablet Sennosides [Senna] 8.6 mg PO BID #14 tablet Home Medications: Ascorbate Calcium [Vitamin C] 500 mg PO DAILY 10/08/16 [History] Gabapentin [Neurontin] 600 mg PO TID 10/08/16 [History] Levothyroxine [Synthroid] 100 mcg PO QAM 10/08/16 [History] Lysine [l-Lysine] 1,000 mg PO DAILY 10/08/16 [History] Metformin [Glucophage] 500 mg PO BID 10/08/16 [History] Nystatin POWDER [Nystop] 1 appl TP BID 10/08/16 [History] Silver Sulfadiazine Cream [Silvadene] 1 appl TP DAILY 10/08/16 [History] Docusate [Colace] 100 mg PO BID capsule 10/14/16 [Rx] Sucralfate [Carafate] 1 gm PO QIDAC #120 tablet 10/14/16 [Rx] Folic Acid/Vit Bcomp,C [Renal Vitamin Tablet] 0.8 mg PO DAILY 11/20/16 [History] Glucosamine Sulfate 1,000 mg PO DAILY 11/20/16 [History] Lisinopril [Zestril] 20 mg PO QAM #30 tablet 11/23/16 [Rx] Magnesium Oxide [Mag-Ox] 800 mg PO BID tablet 11/23/16 [Rx] Omeprazole 20 mg PO BID 12/02/16 [History] Vit B Cplx C No.13/Folic AC/D3 [Nephrocaps Qt Tablet] 1 tab PO DAILY 12/02/16 [ History] Chlorzoxazone 500 mg PO TID #6 tablet 12/08/16 [Rx] OxyCODONE/APAP 5/325 [Percocet 5/325 MG] 1 each PO Q4HR PRN #12 tablet 12/08/16 [Rx] Sennosides [Senna] 8.6 mg PO BID #14 tablet 12/08/16 [Rx] Allergies/Adverse Reactions: Allergies cephalexin [From Keflex] Allergy (Verified 12/05/16 03:02) Hives sulfamethoxazole [From Septra] Allergy (Verified 12/05/16 03:02) Hives trimethoprim [From Septra] Allergy (Verified 12/05/16 03:02) Hives NSAIDS (Non-Steroidal Anti-Inflamma Adverse Reaction (Verified 12/05/16 03:02) See Comments Risk for bleeding - Respiratory Orders Smoking Cessation: Smoking cessation has been advised. For more information, call the [place] [email or web address] Quit Line at 8-133-AOFC-NOW. - Ancillary Orders May use pressure relief devices daily prn, May consult with Dentist, Business Line Manager, Jet Engine Mechanic PRN - Advance Directives Living Will: No Power of Supervisor Color Paste Mixing: No Code Status: Full Code - Mobility Orders Ambulate - Rehabiliation Orders Rehab Potential: Good Rehab Orders: Evaluation for Physical Therapy, Evaluation for Occupational Therapy - Treatments Skin tear care topically daily PRN per policy, May check for fecal impaction rectally daily PRN, Fleet enema rectally every other day PRN cleansing purposes CERTIFICATION: I certify that the transfer of the above named patient to an Extended Care Facility is necessary for the continuing treatment of the diagnosis listed. The above information is true and accurate reflection of patient's current condition. Confidential - Redisclosure prohibited without a patient's written consent. <Howie De Anda - Last Filed: 12/08/16 18:14> - Respiratory Orders Smoking Cessation: Smoking cessation has been advised. For more information, call the [place] [email or web address] Quit Line at 4-776-BFWG-NOW. CERTIFICATION: I certify that the transfer of the above named patient to an Extended Care Facility is necessary for the continuing treatment of the diagnosis listed. The above information is true and accurate reflection of patient's current condition. Confidential - Redisclosure prohibited without a patient's written consent. I examined this patient and my medical decision-making was reviewed with the Resident Physician, Dr Jareth Bentley. I agree with the documented findings, disposition and treatment plan as described except to the extent set forth below. Patient appears in no acute distress. She had no further rectal bleeding. She is awake alert oriented 3. Abdomen is soft nontender nondistended. Wound VAC is in place. We will [facility] the patient to the [facility]. Start bowel regimen. Hold stool softeners only if the patient has diarrhea. Avoid stool bulking agents. Follow up closely with primary care physician.
[2016-12-08 11:18] VITALS: BP 132/75
[2016-12-08 11:49] LABS: % Iron Saturation 8 % (15-50); Iron 31 mcg/dL (50-170); Transferrin 276 mg/dL (180-382)
[2016-12-08 12:25] LABS: Ferritin 39 ng/ml (5-204)
== END 2016-12-08 14:18 ==
LOC: EMEROO 02:54 → 3ANU 02:54 → SUATTDRO 12:34
PROVIDERS: ADMIT Internal Medicine; ATTEND Internal Medicine

== ENCOUNTER 2016-12-17 11:25 | Inpatient (IN) ==
--- NOTE | 2016-12-17 12:03 | Emergency Department Note ---
Disposition Clinical Impression: Lower GI bleed, Fecal impaction in rectum Anemia Qualifiers: Anemia type: unspecified type Qualified Code(s): D64.9 - Anemia, unspecified Diabetes Qualifiers: Diabetes mellitus type: type 2 Diabetes mellitus complication status: with unspecified complications Diabetes mellitus termite control representative insulin use: without termite control representative use Qualified Code(s): E11.8 - Type 2 diabetes mellitus with unspecified complications UTI (urinary tract infection) Qualifiers: Urinary tract infection type: site unspecified Hematuria presence: with hematuria Qualified Code(s): N39.0 - Urinary tract infection, site not specified Disposition: Admitted As Inpatient Condition: Fair Abdominal Pain HPI - General Chief Complaint: ED Abdominal Pain Stated Complaint: Abdominal pain Time Seen by Provider: 12/17/16 11:31 Source: patient Limitations: no limitations Nursing Notes Reviewed: Yes Vital Signs Reviewed: Yes - History of Present Illness HPI Narrative: 76 yo F PMHx GI bleed, anemia, DM, HTN, HLD presents with c/o rectal pain. Pt had abdominal surgery 6 weeks ago with gastric wedge resection, and admission for GI bleed about 10days ago. Pt states that pain started this week, is worse today and is a sharp stabbing constant pain that does not improve with anything. She states that she has an internal hemorrhoid that causes her rectal pain on and off and has had this pain before. She states at that time she had to get an anima and was admitted for a GI bleed. Pt states that she has been constipated and has not had a normal BM in several days. She states that she has had loose watery stools constantly throughout the day, but no solid BM. SHe denies abdominal pain, nausea, vomiting. She denies black tarry stool, or bright red blood in stool, she denies blood in urine, dysuria, change in urinary habits, denies lightheadedness, CP, palpitations, SOB, unilateral numbness/tingling, weakness. Pt Subjective Complaint: other (rectal pain) Consistency: constant Pain Severity: severe Pain Scale: 7 Quality: stabbing Radiation: none Migration to: other Improves with: other Worsens with: other Context: history of similar episodes Associated symptoms: Reports: diarrhea Treatments prior to arrival: none - Related Data Home Medications Medication Instructions Recorded Confirmed Ascorbate Calcium [Vitamin C] 500 mg PO DAILY 10/08/16 12/17/16 Gabapentin [Neurontin] 600 mg PO TID 10/08/16 12/17/16 Levothyroxine [Synthroid] 100 mcg PO QAM 10/08/16 12/17/16 Lysine [l-Lysine] 1,000 mg PO DAILY 10/08/16 12/17/16 Metformin [Glucophage] 500 mg PO BID 10/08/16 12/17/16 Nystatin POWDER [Nystop] 1 appl TP BID 10/08/16 12/17/16 Silver Sulfadiazine Cream 1 appl TP DAILY 10/08/16 12/17/16 [Silvadene] Folic Acid/Vit Bcomp,C [Renal 0.8 mg PO DAILY 11/20/16 12/17/16 Vitamin Tablet] Glucosamine Sulfate 1,000 mg PO DAILY 11/20/16 12/17/16 Omeprazole 20 mg PO BID 12/02/16 12/17/16 Vit B Cplx C No.13/Folic AC/D3 1 tab PO DAILY 12/02/16 12/17/16 [Nephrocaps Qt Tablet] OxyCODONE/APAP 5/325 [Percocet 1 tab PO Q4HR PRN 12/17/16 12/17/16 5/325 MG] Previous Rx's Medication Instructions Recorded Docusate [Colace] 100 mg PO BID capsule 10/14/16 Sucralfate [Carafate] 1 gm PO QIDAC #120 tablet 10/14/16 Lisinopril [Zestril] 20 mg PO QAM #30 tablet 11/23/16 Magnesium Oxide [Mag-Ox] 800 mg PO BID tablet 11/23/16 Chlorzoxazone 500 mg PO TID #6 tablet 12/08/16 Sennosides [Senna] 8.6 mg PO BID #14 tablet 12/08/16 Allergies Allergy/AdvReac Type Severity Reaction Status Date / Time cephalexin [From Keflex] Allergy Hives Verified 12/05/16 03:02 sulfamethoxazole Allergy Hives Verified 12/05/16 03:02 [From Septra] trimethoprim [From ] Allergy Hives Verified 12/05/16 03:02 NSAIDS (Non-Steroidal AdvReac See Verified 12/05/16 03:02 Anti-Inflamma Comments All systems ED: reviewed and negative except as stated. Constitutional: Denies: fever, chills, weakness Eyes: Denies: eye pain ENT ED: Denies: ear pain Cardiovascular: Denies: chest pain, palpitations, edema, syncope Respiratory: Denies: cough, dyspnea, wheezes Gastrointestinal: Reports: diarrhea, constipation. Denies: abdominal pain, nausea, vomiting, hematemesis, melena, hematochezia Genitourinary: Denies: urgency, dysuria, frequency Musculoskeletal: Reports: back pain Integumentary: Reports: lesions Neurological: Denies: headache, weakness, numbness, paresthesias Psychiatric: Denies: anxiety, depression Abdominal Pain PMH - Past Medical History Medical history: Reports: arthritis, diabetes, GI bleed, hyperlipidemia, hypertension, renal disease, thyroid disease, other Female Surgical History: Reports: cholecystectomy, other COUNTER FORMER history: Reports: no COUNTER FORMER history Psychiatric history: Reports: no psych history - Social History Smoking status: Former smoker Alcohol use: Reports: none Drug use: Reports: none Physical Exam - General Limitations: no limitations General appearance: alert, in no apparent distress, obese - Head Head exam: atraumatic, normocephalic, normal inspection, other (allopecia) - Eye Eye exam: Present: normal appearance, PERRL, EOMI - ENT ENT exam: normal exam, normal oropharynx, mucous membranes dry - Neck Neck exam: Present: normal inspection, full ROM, trachea midline - Chest Chest inspection: Present: normal inspection, symmetric chest wall rise. Absent : tenderness - Respiratory Respiratory exam: Present: other (course diminshed throughout). Absent: respiratory distress, wheezes, accessory muscle use - Cardiovascular Cardiovascular exam: Present: regular rate, normal rhythm, normal heart sounds, +S1, +S2 - Abdominal Exam Abdominal exam: Present: soft, tenderness (minimal), normal bowel sounds, incision (midline healing incision, well cicumscribed C/D/I). Absent: distention, guarding, rebound, rigidity Abdominal tenderness: Present: RLQ, LLQ - Rectal Exam Log Washer present during exam: Yes Rectal exam: Present: normal inspection, normal rectal tone, other (normal brown fecal matter present in diaper few bright red streaks). Absent: hemorrhoids, mass - Extremities Exam Extremities exam: Present: pedal edema, other (lateral LLE healing ulcer). Absent: calf tenderness - Back Exam Back exam: Absent: CVA tenderness (R), CVA tenderness (L) - Neurological Exam Neurological exam: Present: alert, oriented X3 - Psychiatric Psychiatric exam: Present: normal affect, normal mood - Skin Skin exam: Present: warm, dry. Absent: cyanosis, diaphoresis Course Vital Signs Temperature 98.2 F 12/17/16 11:28 Pulse Rate 72 12/17/16 11:28 Respiratory Rate 20 12/17/16 11:28 Blood Pressure 123/55 12/17/16 11:28 O2 Sat by Pulse Oximetry 96 12/17/16 11:28 Temperature 98.1 F 12/17/16 15:05 Pulse Rate 70 12/17/16 14:10 Respiratory Rate 20 12/17/16 15:05 Blood Pressure 136/68 12/17/16 15:05 O2 Sat by Pulse Oximetry 96 12/17/16 14:10 Oxygen Delivery Oxygen Delivery Room Air Abdominal Pain - MDM Narrative Medical decision making narrative: CT with diverticolosis,colitis large stool in rectosigmoid colon and post surgical changes +FOB LA and CRP wnl UA + LE Hb 10.1 likely need admission for rectal bleeding with colitis, UTI - Medical Records Medical records reviewed: Yes I reviewed the patient's medical records. - Lab Data Lab results reviewed: Yes I reviewed the patient's lab results. Result diagrams: 12/17/16 12:30 12/17/16 12:30 Lab Results 12/17/16 12/17/16 12/17/16 Range/Units 12:13 12:30 12:30 WBC 10.3 (4.3-11.1) K/mcL RBC 3.62 L (3.82-4.97) M/mcL Hgb 10.0 L (11.5-15.4) g/dL Hct 31.2 L (35.3-44.9) % MCV 86.2 (83.0-100.0) fL MCH 27.6 L (28.0-33.3) pg MCHC 32.1 (31.6-35.5) g/dL RDW 14.6 H (11.5-14.5) % Plt Count 276 (140-400) K/mcL MPV 11.3 (9.4-12.4) fL Immature Gran % 0.5 (0-4) % Seg Neutrophils % 72.7 % Lymphocytes % 18.5 % Monocytes % 5.9 % Eosinophils % 1.9 % Basophils % 0.5 % Neutrophils # 7.5 (1.6-8.9) K/mcL Lymphocytes # 1.9 (0.6-4.6) K/mcL Monocytes # 0.6 (0.0-1.3) K/mcL Eosinophils # 0.2 (0.0-0.6) K/mcL Basophils # 0.1 (0.0-0.2) K/mcL Sodium 136 (136-145) mEq/L Potassium 4.5 (3.5-4.5) mEq/L Chloride 101 (98-109) mEq/L Carbon Dioxide 25 (19-29) mEq/L BUN 39 H (7-20) mg/dL Creatinine 0.77 (0.57-1.11) mg/dL Est GFR ( Amer) > 60 (> 60) Est GFR (Non-Af Amer) > 60 (> 60) BUN/Creatinine Ratio 51 H (6-26) Glucose 99 (70-99) mg/dL Calculated Osmolality 291 (280-300) Lactic Acid (0.5-2.2) mmol/L Calcium 9.7 (8.6-10.8) mg/dL Total Bilirubin 0.2 (0.2-1.2) mg/dL Direct Bilirubin < 0.1 (0.0-0.5) mg/dL Indirect Bilirubin 0.1 (0.0-1.2) mg/dL AST 21 (5-34) Units/L ALT 17 (0-55) Units/L Alkaline Phosphatase 80 (38-126) Units/L C-Reactive Protein 12 H (Less than 5) mg/L Serum Total Protein 7.2 (6.0-8.3) g/dL Albumin 2.9 L (3.5-5.0) g/dL Globulin 4.3 H (2.4-3.5) g/dL Albumin/Globulin Ratio 0.7 L (1.1-2.2) Lipase 44 (8-78) Units/L Urine Color Yellow (Yellow) Urine Clarity Cloudy A (Clear) Urine pH 6.5 (5.0-8.0) pH Units Ur Specific [place] 1.015 (1.010-1.025) Urine Protein Negative (Neg-Trace) mg/dL Urine Glucose (UA) Normal (Normal) mg/dL Urine Ketones Negative (Negative) mg/dL Urine Blood Negative (Negative) Urine Nitrite Negative (Negative) Urine Bilirubin Negative (Negative) Urine Urobilinogen Normal (Normal) mg/dL Ur Leukocyte Esterase Large H (Negative) Urine Microscopic RBC 0-3 (0-3) per hpf Urine Microscopic WBC 50-100 H (0-3) per hpf Ur Squamous Epith Cells Few (None-Few) per lpf Urine Bacteria Many H (None-Few) per hpf Hyaline Casts None Seen (None-Few) per lpf Ur Culture Indicated? YES A (NO) Stool Occult Blood (Negative) 12/17/16 12/17/16 Range/Units 12:30 12:30 WBC (4.3-11.1) K/mcL RBC (3.82-4.97) M/mcL Hgb (11.5-15.4) g/dL Hct (35.3-44.9) % MCV (83.0-100.0) fL MCH (28.0-33.3) pg MCHC (31.6-35.5) g/dL RDW (11.5-14.5) % Plt Count (140-400) K/mcL MPV (9.4-12.4) fL Immature Gran % (0-4) % Seg Neutrophils % % Lymphocytes % % Monocytes % % Eosinophils % % Basophils % % Neutrophils # (1.6-8.9) K/mcL Lymphocytes # (0.6-4.6) K/mcL Monocytes # (0.0-1.3) K/mcL Eosinophils # (0.0-0.6) K/mcL Basophils # (0.0-0.2) K/mcL Sodium (136-145) mEq/L Potassium (3.5-4.5) mEq/L Chloride (98-109) mEq/L Carbon Dioxide (19-29) mEq/L BUN (7-20) mg/dL Creatinine (0.57-1.11) mg/dL Est GFR ( Amer) (> 60) Est GFR (Non-Af Amer) (> 60) BUN/Creatinine Ratio (6-26) Glucose (70-99) mg/dL Calculated Osmolality (280-300) Lactic Acid 1.5 (0.5-2.2) mmol/L Calcium (8.6-10.8) mg/dL Total Bilirubin (0.2-1.2) mg/dL Direct Bilirubin (0.0-0.5) mg/dL Indirect Bilirubin (0.0-1.2) mg/dL AST (5-34) Units/L ALT (0-55) Units/L Alkaline Phosphatase (38-126) Units/L C-Reactive Protein (Less than 5) mg/L Serum Total Protein (6.0-8.3) g/dL Albumin (3.5-5.0) g/dL Globulin (2.4-3.5) g/dL Albumin/Globulin Ratio (1.1-2.2) Lipase (8-78) Units/L Urine Color (Yellow) Urine Clarity (Clear) Urine pH (5.0-8.0) pH Units Ur Specific [place] (1.010-1.025) Urine Protein (Neg-Trace) mg/dL Urine Glucose (UA) (Normal) mg/dL Urine Ketones (Negative) mg/dL Urine Blood (Negative) Urine Nitrite (Negative) Urine Bilirubin (Negative) Urine Urobilinogen (Normal) mg/dL Ur Leukocyte Esterase (Negative) Urine Microscopic RBC (0-3) per hpf Urine Microscopic WBC (0-3) per hpf Ur Squamous Epith Cells (None-Few) per lpf Urine Bacteria (None-Few) per hpf Hyaline Casts (None-Few) per lpf Ur Culture Indicated? (NO) Stool Occult Blood Positive A (Negative) - Radiology Data Radiology results reviewed: Yes I reviewed the patient's radiology results. Critical Care Time Critical Care Time: No
--- NOTE | 2016-12-17 12:14 | Emergency Department Note ---
START Narrative - START START: I examined and evaluated the patient with the resident. I spent direct face-to- face time with the patient. I agree with her findings assessment and plan. Patient is elderly, she is experiencing rectal bleeding and has a significant fecal impaction with colitis distally. She has a UTI. The patient has had recent gastric resection, she has had no blackened stool. She is anemic. I am concerned the patient has a significant fecal impaction with likely friable [place] tissue causing bleeding. She is elderly, diabetic, and has diverticulosis and was not very tolerant of the rectal examination. Based on her comorbidities and risk for colonic perforation I think the patient would benefit from hospitalization for UTI treatment and monitoring hemoglobin as well as laxatives and/or gentle methodology regarding fecal disimpaction or even possible OR sedation and intervention Impression: Frail elderly Rectal bleeding UTI Diabetes mellitus Stercoral Colitis Diverticulosis Fecal impaction *Per reports, the patient had a previous fecal impaction which required operating room sedation and gastroenterology to remove.
[2016-12-17 12:46] LABS: Bilirubin,Urine Negative (Negative); Blood,Urine Negative (Negative); Clarity,Urine Cloudy (Clear); Color,Urine Yellow (Yellow); Glucose,Urine (UA) Normal (Normal); Ketones,Urine Negative (Negative); Leukocyte Esterase,Urine Large (Negative); Nitrite,Urine Negative (Negative); PH,Urine 6.5 pH Units (5.0-8.0); Protein,Urine Negative (Neg-Trace); Specific Gravity,Urine 1.015 (1.010-1.025); Urobilinogen,Urine Normal (Normal)
[2016-12-17 12:49] LABS: Bacteria,Urine Many per hpf (None-Few); Hyaline Casts,Urine None Seen per lpf (None-Few); RBC,Urine 0-3 per hpf (0-3); Squamous Epithelial Cell,Urine Few per lpf (None-Few); WBC,Urine 50-100 per hpf (0-3)
[2016-12-17 12:52] LABS: Basophils # 0.1 K/mcL (0.0-0.2); Basophils % 0.5 %; Eosinophils # 0.2 K/mcL (0.0-0.6); Eosinophils % 1.9 %; Hematocrit 31.2 % (35.3-44.9); Immature Granulocytes % 0.5 % (0-4); Lymphocytes # 1.9 K/mcL (0.6-4.6); Lymphocytes % 18.5 %; Mean Corpuscular HGB Conc 32.1 g/dL (31.6-35.5); Mean Corpuscular Hemoglobin 27.6 pg (28.0-33.3); Mean Corpuscular Volume 86.2 fL (83.0-100.0); Mean Platelet Volume 11.3 fL (9.4-12.4); Monocytes # 0.6 K/mcL (0.0-1.3); Monocytes % 5.9 %; Neutrophils # 7.5 K/mcL (1.6-8.9); Platelet Count 276 K/mcL (140-400); Red Blood Count 3.62 M/mcL (3.82-4.97); Red Cell Distribution Width 14.6 % (11.5-14.5); Segmented Neutrophils % 72.7 %
[2016-12-17 13:02] LABS: Alanine Aminotransferase 17 Units/L (0-55); Albumin 2.9 g/dL (3.5-5.0); Albumin/Globulin Ratio 0.7 (1.1-2.2); Alkaline Phosphatase 80 Units/L (38-126); Aspartate Amino Transferase 21 Units/L (5-34); BUN/Creatinine Ratio 51 (6-26); Bilirubin,Indirect 0.1 mg/dL (0.0-1.2); Bilirubin,Total 0.2 mg/dL (0.2-1.2); Blood Urea Nitrogen 39 mg/dL (7-20); C-Reactive Protein 12 mg/L (Less than 5); Calcium 9.7 mg/dL (8.6-10.8); Carbon Dioxide 25 mEq/L (19-29); Chloride 101 mEq/L (98-109); Globulin 4.3 g/dL (2.4-3.5); Glucose 99 mg/dL (70-99); Lipase 44 Units/L (8-78); Osmolality,Calculated 291 (280-300); Potassium 4.5 mEq/L (3.5-4.5); Sodium 136 mEq/L (136-145); Total Protein 7.2 g/dL (6.0-8.3); eGFR For African Americans > 60 (> 60); eGFR For Non-African Americans > 60 (> 60)
[2016-12-17 13:03] LABS: Bilirubin,Direct < 0.1 mg/dL (0.0-0.5)
[2016-12-17] MEDS ORDERED: *HR* OxyCODONE/APAP 5/325 TABLET PO ONE (13:14)
--- NOTE | 2016-12-17 16:36 | Event Note ---
Date of Encounter: 12/17/16 Time of Encounter: 16:25 I examined this patient and my medical decision-making was reviewed with the Resident Physician, Dr Bentley. I agree with the documented findings, disposition and treatment plan as described except to the extent set forth below. Patient currently reports 0/10 abdominal pain. At the half-way she had worsening abdominal pain over the last 2 days associated with constipation. She says that she has not passed a bowel movement for the last 7 days. She was discharged from our service a days ago and at that time her constipation was controlled with medication. Prior to her admission last week she has had a recent episode of severe constipation which required disimpaction by gastroenterology under sedation. On exam she is in no acute distress. Heart is regular with normal S1 and S2. Abdomen is obese soft tender to palpation with voluntary guarding no rebound tenderness. There is a ventral abdominal wound about 4 mm deep. There appears to be healing well. Plan: We will admit the patient to our service. We will keep her nothing by mouth. IV fluids. General surgery was consulted from the emergency department due to possible need for disimpaction in the OR given CT finding of rectal impaction and stercoral colitis. IV morphine for pain. Gentle IV fluid hydration. She is at high risk for morbidity and mortality complications due to need for surgical intervention and IV controlled substances.
[2016-12-17] MEDS ORDERED: Naloxone 0.4 MG/ML INJ IVP PRN (16:39)
[2016-12-17] MEDS ORDERED: MOM Conc 10 ML UD.LIQ PO PRN (16:48)
[2016-12-17] MEDS ORDERED: Acetaminophen 325 MG TABLET PO PRN (16:48)
[2016-12-17] MEDS ORDERED: D5% in Water 1,000 ML IVC PRN (16:53)
[2016-12-17] MEDS ORDERED: Dextrose Gel 15 GM PO PRN ×2 (16:53)
[2016-12-17] MEDS ORDERED: *HR* Dextrose 50 % in Water (Syg) 50 ML SYRINGE IVP PRN (16:53)
--- NOTE | 2016-12-17 17:01 | Internal Med History&Physical ---
<Jareth Bentley - Last Filed: 12/17/16 16:58> Date of Encounter: 12/17/16 Time of Encounter: 15:00 Assessment and Plan (1) Fecal impaction in rectum Current visit: Yes Status: Acute Ms. Covarrubias 76 yo Female presenting with constipation. She has a history of chronic constipation with a recent admission for blood per rectum and fecal impaction. She was discharged roughly a week and a half ago after disimpaction and bowel clearing with 3 days of GoLYTELY bowel prep. - With her last admission she underwent a flexible sigmoidoscopy with findings of a rectum full of hard stool, patient had severe inflammation at the anorectal junction with active oozing of the blood from different site only one site was treated with APC. Stool in the rectum looked brown with no evidence of blood. It was suspected severe inflammation of the anorectal junction was due to hard stool. - Patient is a significant GI surgery history with previous history of gastric perforation, bright red blood per rectum, gastric ulcers, chronic constipation Suspect recurring fecal impaction is likely due to poor colonic propulsion and patient's immobility. She is on a significant bowel regiment at home and within 2 weeks has recurrence. Plan: - We will continue with colonic stimulant, laxatives and stool softeners. - Gen. surgery consult in for possible disimpaction in the OR. - Patient to stay nothing by mouth until after evaluation from surgery. (2) Blood per rectum Current visit: Yes Status: Acute Patient has positive occult blood in the emergency room. She has known friable tissue at the anal rectal junction. Her hemoglobin is actually improved from her last admission. I do not suspect active GI bleeding but this may be more localized. - We will continue monitoring with a.m. hemoglobin. - will require removal of impacted stool to take pressure off inflamed tissue. (3) HTN (hypertension) Current visit: No Status: Chronic Patient has history of hypertension. Blood pressure stable. Will continue with home antihypertensives. Qualifiers: Hypertension type: essential hypertension Qualified Code(s): I10 - Essential (primary) hypertension (4) Diabetes Current visit: No Status: Chronic Patient has a history of type 2 diabetes. On metformin at home. Plan: - Before meals at bedtime glucose checks - Low-dose sliding scale insulin, will add basal dose if necessary. Qualifiers: Diabetes mellitus type: type 2 Diabetes mellitus complication status: with unspecified complications Diabetes mellitus superintendent terminal insulin use: without fci use Qualified Code(s): E11.8 - Type 2 diabetes mellitus with unspecified complications (5) Hypothyroid Current visit: No Status: Chronic Continue home dose of levothyroxine 100 g by mouth every a.m. Qualifiers: Hypothyroidism type: unspecified Qualified Code(s): E03.9 - Hypothyroidism , unspecified Internal Medicine - H&P: HPI Chief complaint: Constipation Admitted From: Emergency Dept Plans for Post Hospital Care: Transfer [facility] History of present illness: Ms. Covarrubias is a 76 year old female with a past medical history of GI bleed, gastric perforation , abdominal wound, diabetes type 2 not insulin-dependent, hypertension was brought to the emergency department with constipation. Patient states that she has had a chronic history of constipation and was recently discharged roughly 2 weeks ago after treatment for similar condition. She states that her current constipation she will have liquidy stool but no significant amount. She feels bloated and has fullness in her lower abdomen. She will attempt to go to the bathroom without any success. She blames eating potentially old hard corn as the culprit of her current constipation problems. She denies any fevers, chills, nausea or vomiting or burning with urination or urinary discomfort. She said she takes the medications provided to her at the [facility] which may include her recent bowel regimen prescribed to her at the time of discharge. She has had light blood per rectum which she says is due to an internal hemorrhoid. She denies any other medical complaints at this time. Past Med Surg Social Fam HX - Past Medical History Medical history: arthritis, diabetes, GI bleed, hyperlipidemia, hypertension, renal disease, thyroid disease, other Psychiatric history: no psych history - Past Surgical History Surgical History: cholecystectomy, other - Social History Smoking Status: Former smoker Smokeless Tobacco Status: No Alcohol use: none Drug use: none - Family History Mother Living Status: Hx Family Endocrine Disorder: Yes (DM) Internal Medicine - H&P: Meds Ascorbate Calcium [Vitamin C] 500 mg PO DAILY 10/08/16 [History] Gabapentin [Neurontin] 600 mg PO TID 10/08/16 [History] Levothyroxine [Synthroid] 100 mcg PO QAM 10/08/16 [History] Lysine [l-Lysine] 1,000 mg PO DAILY 10/08/16 [History] Metformin [Glucophage] 500 mg PO BID 10/08/16 [History] Nystatin POWDER [Nystop] 1 appl TP BID 10/08/16 [History] Silver Sulfadiazine Cream [Silvadene] 1 appl TP DAILY 10/08/16 [History] Docusate [Colace] 100 mg PO BID capsule 10/14/16 [Rx] Sucralfate [Carafate] 1 gm PO QIDAC #120 tablet 10/14/16 [Rx] Folic Acid/Vit Bcomp,C [Renal Vitamin Tablet] 0.8 mg PO DAILY 11/20/16 [History] Glucosamine Sulfate 1,000 mg PO DAILY 11/20/16 [History] Lisinopril [Zestril] 20 mg PO QAM #30 tablet 11/23/16 [Rx] Magnesium Oxide [Mag-Ox] 800 mg PO BID tablet 11/23/16 [Rx] Omeprazole 20 mg PO BID 12/02/16 [History] Vit B Cplx C No.13/Folic AC/D3 [Nephrocaps Qt Tablet] 1 tab PO DAILY 12/02/16 [ History] Chlorzoxazone 500 mg PO TID #6 tablet 12/08/16 [Rx] Sennosides [Senna] 8.6 mg PO BID #14 tablet 12/08/16 [Rx] OxyCODONE/APAP 5/325 [Percocet 5/325 MG] 1 tab PO Q4HR PRN 12/17/16 [History] Allergies cephalexin [From Keflex] Allergy (Verified 12/05/16 03:02) Hives sulfamethoxazole [From Septra] Allergy (Verified 12/05/16 03:02) Hives trimethoprim [From Septra] Allergy (Verified 12/05/16 03:02) Hives NSAIDS (Non-Steroidal Anti-Inflamma Adverse Reaction (Verified 12/05/16 03:02) See Comments Risk for bleeding All Systems PM: A 10-system review of systems was performed and is negative for pertinent findings except as documented above in the HPI. - Constitutional Constitutional: no chills, no fever(s), no night sweats - EENT Eyes: no change in vision, no discharge, no pain, no photophobia Nose, mouth and throat: no dysphagia, no nasal discharge, no neck pain, no sore throat - Cardiovascular Cardiovascular ROS IM: no chest pain, no diaphoresis, no dyspnea, no lightheadedness, no palpitations, no syncope - Respiratory Respiratory: no cough, no dyspnea, no wheezing, no excessive phlegm production - Gastrointestinal Gastrointestinal: abdominal pain, bloating, constipation, cramping - Genitourinary Genitourinary: no change in urinary stream, no dysuria, no flank pain, no hematuria - Musculoskeletal Additional comments: Pain in her bilateral lower extremities - Neurological Neurological ROS: focal weakness, no confusion, no convulsions, no numbness, no tremor(s) - Endocrine Endocrine IM: no polyphagia, no polyuria - Constitutional Vitals: Temp Pulse Resp BP Pulse Ox 98.1 F 70 20 136/68 96 12/17/16 15:05 12/17/16 14:10 12/17/16 15:12/17/16 15:12/17/16 14:10 General appearance: Present: cooperative, A&O X 3, pleasant, no acute distress - Head Head exam: Present: atraumatic, normocephalic - Eye Eye exam: Present: PERRL, conjuntiva pink, sclera anicteric Pupils: Present: PERRL - ENT ENT exam: Present: mucous membranes moist - Neck Neck exam general surgery: Present: supple, trachea midline. Absent: lymphadenopathy - Respiratory Respiratory exam: Present: CTAB. Absent: accessory muscle use, rales, rhonchi, wheezes - Cardiovascular Cardiovascular exam: Present: RRR, +S1, +S2. Absent: diastolic murmur, gallop, rubs, systolic murmur - GI/Abdominal Additional comments: Obese abdomen, with midline healing wound, nontender to palpation, positive bowel sounds, fullness to palpation in the lower abdomen. - Extremities Exam Extremities exam: Present: warm, radial pulses palpable and symetrical. Absent : calf tenderness, cyanotic, pedal edema - Neurological Exam Neurological exam: Present: alert, oriented X3. Absent: pronater drift, facial droop, speech deficit - Psychiatric Psychiatric exam: Present: normal affect, normal mood Internal Med - H&P Results - Labs CBC & Chem 7: 12/17/16 12:30 12/17/16 12:30 <Howie De Anda - Last Filed: 12/17/16 18:27> Date of Encounter: 12/17/16 Internal Medicine - H&P: HPI History of present illness: Ms. Covarrubias is a 76 year old female All Systems PM: A 10-system review of systems was performed and is negative for pertinent findings except as documented above in the HPI. - Constitutional Vitals: Temp Pulse Resp BP Pulse Ox 98.1 F 70 20 136/68 96 12/17/16 15:05 12/17/16 14:10 12/17/16 15:12/17/16 15:12/17/16 14:10 Internal Med - H&P Results - Labs CBC & Chem 7: 12/17/16 12:30 12/17/16 12:30 - Attending Attestation I examined this patient and my medical decision-making was reviewed with the Resident Physician, Dr Bentley. I agree with the documented findings, disposition and treatment plan as described except to the extent set forth below. We will consult surgery for management of severe rectal impaction. Pain control with IV morphine.
[2016-12-17] MEDS: *HR* OxyCODONE/APAP 5/325 TABLET PO PRN ×2 (17:38→22:32)
[2016-12-17] MEDS ORDERED: Insulin LISPRO 300 UNITS/3 ML VIAL SQ SCH (21:00)
[2016-12-17] MEDS: Gabapentin 300 MG CAPSULE PO SCH (22:32)
[2016-12-17] MEDS: Sennosides 8.6 MG TABLET PO SCH (22:32)
[2016-12-17] MEDS: *HR* Heparin 5,000 UNIT/ML VIAL SQ SCH (22:32)
[2016-12-17] MEDS: Nystatin POWDER 30 GM BOTTLE TP SCH (22:33)
[2016-12-18] MEDS: *HR* OxyCODONE/APAP 5/325 TABLET PO PRN ×3 (04:55→21:53)
[2016-12-18 04:57] LABS: Basophils # 0.1 K/mcL (0.0-0.2); Basophils % 0.8 %; Eosinophils # 0.3 K/mcL (0.0-0.6); Eosinophils % 4.2 %; Hemoglobin 9.6 g/dL (11.5-15.4); Immature Granulocytes % 0.7 % (0-4); Lymphocytes # 1.8 K/mcL (0.6-4.6); Lymphocytes % 24.2 %; Mean Corpuscular Hemoglobin 26.7 pg (28.0-33.3); Mean Corpuscular Volume 86.1 fL (83.0-100.0); Mean Platelet Volume 10.5 fL (9.4-12.4); Monocytes # 0.5 K/mcL (0.0-1.3); Monocytes % 6.5 %; Neutrophils # 4.6 K/mcL (1.6-8.9); Platelet Count 258 K/mcL (140-400); Red Cell Distribution Width 14.4 % (11.5-14.5); Segmented Neutrophils % 63.6 %
[2016-12-18 05:16] LABS: BUN/Creatinine Ratio 43 (6-26); Blood Urea Nitrogen 33 mg/dL (7-20); Calcium 9.6 mg/dL (8.6-10.8); Carbon Dioxide 29 mEq/L (19-29); Chloride 102 mEq/L (98-109); Glucose 105 mg/dL (70-99); Magnesium 1.6 mg/dL (1.6-2.6); Osmolality,Calculated 294 (280-300); Phosphorous 4.8 mg/dL (2.3-4.7); Potassium 4.3 mEq/L (3.5-4.5); Sodium 138 mEq/L (136-145); eGFR For African Americans > 60 (> 60); eGFR For Non-African Americans > 60 (> 60)
[2016-12-18] MEDS: *HR* Heparin 5,000 UNIT/ML VIAL SQ SCH (06:08)
[2016-12-18] MEDS ORDERED: Insulin LISPRO 300 UNITS/3 ML VIAL SQ SCH ×2 (07:30→10:00)
[2016-12-18] MEDS: Gabapentin 300 MG CAPSULE PO SCH ×3 (08:47→21:50)
[2016-12-18] MEDS: Sennosides 8.6 MG TABLET PO SCH ×2 (08:48→21:50)
[2016-12-18] MEDS: Lisinopril 20 MG TABLET PO SCH (08:48)
[2016-12-18] MEDS ORDERED: Levofloxacin 750 MG/150 ML 750 MG/150 ML BAG IVPB SCH (09:00)
--- NOTE | 2016-12-18 09:54 | Internal Med Progress Note ---
Date of Encounter: 12/18/16 Time of Encounter: 09:51 - Assessment and plan (1) UTI (urinary tract infection) Current Visit: Yes Status: Acute Assessment and plan: UA preliminary report positive for gram negative rods Will continue Levofloxacin and alter therapy as per official culture report Qualifiers: Urinary tract infection type: site unspecified Hematuria presence: with hematuria Qualified Code(s): N39.0 - Urinary tract infection, site not specified; R31.9 - Hematuria, unspecified (2) Fecal impaction in rectum Current Visit: Yes Status: Acute Assessment and plan: Awaiting surgical consultation continue gentle IV Fluids NPO until surgical evaluation supportive care pain control (3) Anemia Current Visit: Yes Status: Acute Assessment and plan: chronic Positive occult blood test however patient has history of rectal bleed secondary to known friable tissue at the anal rectal junction H&H low but acceptable will closely monitor and transfuse as needed Qualifiers: Anemia type: unspecified type Qualified Code(s): D64.9 - Anemia, unspecified (4) Blood per rectum Current Visit: Yes Status: Chronic Assessment and plan: as listed above (5) Diabetes Current Visit: Yes Status: Chronic Assessment and plan: Accuchecks q4h while NPO and TIDAC and HS once diet resumed monitor FS and BG ss insulin algorithm as needed Qualifiers: Diabetes mellitus type: type 2 Diabetes mellitus complication status: with unspecified complications Diabetes mellitus ferry terminal supervisor insulin use: without ferry terminal supervisor use Qualified Code(s): E11.8 - Type 2 diabetes mellitus with unspecified complications (6) HTN (hypertension) Current Visit: No Status: Chronic Assessment and plan: BP within acceptable range continue home medications will continue to monitor Qualifiers: Hypertension type: essential hypertension Qualified Code(s): I10 - Essential (primary) hypertension (7) Hypothyroid Current Visit: No Status: Chronic Assessment and plan: continue Levothyroxine Qualifiers: Hypothyroidism type: unspecified Qualified Code(s): E03.9 - Hypothyroidism , unspecified (8) DVT prophylaxis Current Visit: No Status: Acute Assessment and plan: IPCD - Subjective Interval history: Patient seen and examined at bedside. Resting in bed. Reports of feeling better at this time with improvement in abd pain. States she continuous to have leaky stools. No other complains reported at this time. pt is bed bound at baseline, refuses to ambulate, states she rarely sits in a chair. Encouraged to get out of bed to chair. - Constitutional Vitals: Temp Pulse Resp BP Pulse Ox 98.0 F 67 16 119/73 93 12/18/16 07:11 12/18/16 07:11 12/18/16 07:11 12/18/16 07:11 12/18/16 07:11 General appearance: Present: A&O X 3, no acute distress, answers questions appropriately - Head Head exam: Present: atraumatic, normocephalic - Eye Eye exam: Present: normal appearance, conjuntiva pink, sclera anicteric - Respiratory Respiratory exam: Present: CTAB. Absent: accessory muscle use, rales, rhonchi, wheezes - Cardiovascular Cardiovascular exam: Present: RRR, +S1, +S2. Absent: diastolic murmur, gallop, rubs, systolic murmur - GI/Abdominal GI/Abdominal exam: Present: normal bowel sounds, soft, tenderness (midline tendereness (s/p bowel resection secondary to gastric perforation-midline dressing intact)). Absent: guarding - Extremities Exam Extremities exam: Present: warm, radial pulses palpable and symetrical. Absent : calf tenderness, cyanotic, pedal edema - Neurological Exam Neurological exam: Present: alert, oriented X3 - Psychiatric Psychiatric exam: Present: normal affect, normal mood Internal Medicine: Result - Labs CBC & Chem 7: 12/18/16 04:38 12/18/16 04:38 Labs: Short CBC 12/18/16 Range/Units 04:38 WBC 7.2 (4.3-11.1) K/mcL Hgb 9.6 L (11.5-15.4) g/dL Hct 31.0 L (35.3-44.9) % Plt Count 258 (140-400) K/mcL Neutrophils # 4.6 (1.6-8.9) K/mcL BMP 12/18/16 04:38 Sodium 138 Potassium 4.3 Chloride 102 Carbon Dioxide 29 BUN 33 H Creatinine 0.77 Glucose 105 H Calcium 9.6 Consult Discharge Plan - Plan Referrals: Nica Pryor, CIVIL ENGINEERING DRAFTSPERSON [Primary Care Provider] -
[2016-12-18] MEDS: Insulin LISPRO 300 UNITS/3 ML VIAL SQ SCH ×4 (12:32→21:50)
[2016-12-18] MEDS: Silver Sulfadiazine 50 GM TUBE TP SCH (12:33)
[2016-12-18] MEDS: D5% in 0.9% NACL 1,000 ML IVC SCH (12:33)
[2016-12-18] MEDS: Nystatin POWDER 30 GM BOTTLE TP SCH ×2 (12:33→21:50)
[2016-12-19] MEDS: D5% in 0.9% NACL 1,000 ML IVC SCH ×2 (02:02→19:00)
[2016-12-19] MEDS: Insulin LISPRO 300 UNITS/3 ML VIAL SQ SCH ×6 (02:34→22:11)
[2016-12-19 05:04] LABS: Basophils # 0.1 K/mcL (0.0-0.2); Basophils % 0.7 %; Eosinophils # 0.3 K/mcL (0.0-0.6); Eosinophils % 3.8 %; Hematocrit 29.3 % (35.3-44.9); Hemoglobin 9.2 g/dL (11.5-15.4); Immature Granulocytes % 0.7 % (0-4); Lymphocytes # 1.6 K/mcL (0.6-4.6); Lymphocytes % 22.5 %; Mean Corpuscular HGB Conc 31.4 g/dL (31.6-35.5); Mean Corpuscular Hemoglobin 27.3 pg (28.0-33.3); Mean Corpuscular Volume 86.9 fL (83.0-100.0); Monocytes # 0.5 K/mcL (0.0-1.3); Monocytes % 6.6 %; Neutrophils # 4.7 K/mcL (1.6-8.9); Platelet Count 243 K/mcL (140-400); Red Blood Count 3.37 M/mcL (3.82-4.97); Red Cell Distribution Width 14.6 % (11.5-14.5); Segmented Neutrophils % 65.7 %
[2016-12-19 05:25] LABS: BUN/Creatinine Ratio 34 (6-26); Blood Urea Nitrogen 28 mg/dL (7-20); Calcium 9.1 mg/dL (8.6-10.8); Carbon Dioxide 22 mEq/L (19-29); Chloride 107 mEq/L (98-109); Glucose 120 mg/dL (70-99); Osmolality,Calculated 295 (280-300); Phosphorous 4.2 mg/dL (2.3-4.7); Potassium 4.5 mEq/L (3.5-4.5); Sodium 139 mEq/L (136-145); eGFR For African Americans > 60 (> 60); eGFR For Non-African Americans > 60 (> 60)
[2016-12-19 05:29] LABS: Magnesium 1.6 mg/dL (1.6-2.6)
[2016-12-19] MEDS: Lisinopril 20 MG TABLET PO SCH (07:29)
[2016-12-19] MEDS: Silver Sulfadiazine 50 GM TUBE TP SCH (07:30)
[2016-12-19] MEDS: Gabapentin 300 MG CAPSULE PO SCH (07:42)
[2016-12-19] MEDS: Nystatin POWDER 30 GM BOTTLE TP SCH ×2 (07:43→22:06)
[2016-12-19] MEDS: Sennosides 8.6 MG TABLET PO SCH ×2 (07:45→22:06)
[2016-12-19] MEDS ORDERED: *HR* OxyCODONE/APAP 5/325 TABLET PO PRN (08:26)
--- NOTE | 2016-12-19 08:41 | Internal Med Progress Note ---
Date of Encounter: 12/19/16 Time of Encounter: 08:38 - Assessment and plan (1) UTI (urinary tract infection) Current Visit: Yes Status: Acute Assessment and plan: Urine culture positive for Klebsiella Pneumoniae Will continue Levofloxacin for a total of 7 days (Day 2/7) Qualifiers: Urinary tract infection type: site unspecified Hematuria presence: with hematuria Qualified Code(s): N39.0 - Urinary tract infection, site not specified; R31.9 - Hematuria, unspecified (2) Fecal impaction in rectum Current Visit: Yes Status: Acute Assessment and plan: Awaiting surgical consultation continue gentle IV Fluids NPO until surgical evaluation supportive care pain control (3) Anemia Current Visit: Yes Status: Acute Assessment and plan: chronic Positive occult blood test however patient has history of rectal bleed secondary to known friable tissue at the anal rectal junction H&H low but acceptable will closely monitor and transfuse as needed Qualifiers: Anemia type: unspecified type Qualified Code(s): D64.9 - Anemia, unspecified (4) Blood per rectum Current Visit: Yes Status: Chronic Assessment and plan: as listed above (5) Diabetes Current Visit: Yes Status: Chronic Assessment and plan: Accuchecks q4h while NPO and TIDAC and HS once diet is resumed monitor FS and BG ss insulin algorithm as needed Qualifiers: Diabetes mellitus type: type 2 Diabetes mellitus complication status: with unspecified complications Diabetes mellitus intermodal dispatcher insulin use: without assisted use Qualified Code(s): E11.8 - Type 2 diabetes mellitus with unspecified complications (6) HTN (hypertension) Current Visit: No Status: Chronic Assessment and plan: BP within acceptable range continue home medications will continue to monitor Qualifiers: Hypertension type: essential hypertension Qualified Code(s): I10 - Essential (primary) hypertension (7) Hypothyroid Current Visit: No Status: Chronic Assessment and plan: continue Levothyroxine Qualifiers: Hypothyroidism type: unspecified Qualified Code(s): E03.9 - Hypothyroidism , unspecified (8) DVT prophylaxis Current Visit: No Status: Acute Assessment and plan: IPCD - Subjective Interval history: Patient seen and examined at bedside. Resting in bed. Denies any abd discomfort at this time. Continues to have leaky stools. Denies any other complains at this time. Pt is bed bound at baseline, refuses to ambulate. Reports of rarely sitting in chair. Patient encouraged to get out of bed to chair. - Constitutional Vitals: Temp Pulse Resp BP Pulse Ox 98.3 F 69 16 152/79 93 12/19/16 07:31 12/19/16 07:31 12/19/16 07:31 12/19/16 07:31 12/19/16 07:31 General appearance: Present: A&O X 3, no acute distress, answers questions appropriately - Head Head exam: Present: atraumatic, normocephalic - Eye Eye exam: Present: normal appearance, conjuntiva pink, sclera anicteric - Respiratory Respiratory exam: Present: CTAB. Absent: accessory muscle use, rales, rhonchi, wheezes - Cardiovascular Cardiovascular exam: Present: RRR, +S1, +S2. Absent: diastolic murmur, gallop, rubs, systolic murmur - GI/Abdominal GI/Abdominal exam: Present: normal bowel sounds, soft, no peritoneal signs Additional comments: midline dressing intact - Extremities Exam Extremities exam: Present: warm, radial pulses palpable and symetrical. Absent : calf tenderness, cyanotic, pedal edema - Neurological Exam Neurological exam: Present: alert, oriented X3 - Psychiatric Psychiatric exam: Present: normal affect, normal mood Internal Medicine: Result - Labs CBC & Chem 7: 12/19/16 03:32 12/19/16 03:32 Labs: Short CBC 12/19/16 Range/Units 03:32 WBC 7.1 (4.3-11.1) K/mcL Hgb 9.2 L (11.5-15.4) g/dL Hct 29.3 L (35.3-44.9) % Plt Count 243 (140-400) K/mcL Neutrophils # 4.7 (1.6-8.9) K/mcL BMP 12/19/16 03:32 Sodium 139 Potassium 4.5 Chloride 107 Carbon Dioxide 22 BUN 28 H Creatinine 0.82 Glucose 120 H Calcium 9.1 Consult Discharge Plan - Plan Referrals: Nica Pryor, REST ROOM ATTENDANT [Primary Care Provider] -
[2016-12-19] MEDS ORDERED: Milk and Molasses Enema 200 ML RC ONE (10:15)
--- NOTE | 2016-12-19 14:46 | General Surgery Consult Note ---
Date of Encounter: 12/19/16 Time of Encounter: 14:00 Assessment and Plan (1) Fecal impaction in rectum Current Visit: Yes Status: Acute Patient given Mg Citrate, Milk and Molasses enema, dulcolax today Fecal disimpaction complete at the bedside per myself- large amount of solid stool removed from the rectum Rectal exam reveals residual soft stool Continue stool softners daily May advance diet Surgery will sign off. Thank you for allowing us to participate in the care of this patient. Please call with any further questions/concerns. History of Present Illness Consult date: 12/17/16 Reason for consult: other (fecal impaction) Requesting physician: Arlyn Nick History of present illness: Ms. Covarrubias is a 76 year old female with multiple comorbidities who presented to the ED from her ECF with complaint of constipation. She is well known to the surgical service. S/P Exploratory laparotomy, gastric perforation wedge resection, ventral hernia repair with Dr. Ware in September of 2016. She states that she struggles with chronic constipation. We have been asked to see and evaluate the patient for fecal impaction. She admits to feeling bloated and has loss of appetite. She denies any fevers/chills/nausea/vomiting. Past Med Surg Social Fam HX - Past Medical History Medical history: arthritis, diabetes, GI bleed, hyperlipidemia, hypertension, renal disease, thyroid disease, other Psychiatric history: no psych history - Past Surgical History Surgical History: cholecystectomy, other (Exploratory lap, gastric wedge resection, ventral hernia repair; EGD, colonoscopies, flexible sigmoidoscopy) - Social History Smoking Status: Former smoker Smokeless Tobacco Status: No Alcohol use: none Drug use: none - Family History Mother Living Status: Hx Family Endocrine Disorder: Yes (DM) Hx Family Psychosocial Disorders: Yes Medications and Allergies Ascorbate Calcium [Vitamin C] 500 mg PO DAILY 10/08/16 [History] Gabapentin [Neurontin] 600 mg PO TID 10/08/16 [History] Levothyroxine [Synthroid] 100 mcg PO QAM 10/08/16 [History] Lysine [l-Lysine] 1,000 mg PO DAILY 10/08/16 [History] Metformin [Glucophage] 500 mg PO BID 10/08/16 [History] Nystatin POWDER [Nystop] 1 appl TP BID 10/08/16 [History] Silver Sulfadiazine Cream [Silvadene] 1 appl TP DAILY 10/08/16 [History] Docusate [Colace] 100 mg PO BID capsule 10/14/16 [Rx] Sucralfate [Carafate] 1 gm PO QIDAC #120 tablet 10/14/16 [Rx] Folic Acid/Vit Bcomp,C [Renal Vitamin Tablet] 0.8 mg PO DAILY 11/20/16 [History] Glucosamine Sulfate 1,000 mg PO DAILY 11/20/16 [History] Lisinopril [Zestril] 20 mg PO QAM #30 tablet 11/23/16 [Rx] Magnesium Oxide [Mag-Ox] 800 mg PO BID tablet 11/23/16 [Rx] Omeprazole 20 mg PO BID 12/02/16 [History] Vit B Cplx C No.13/Folic AC/D3 [Nephrocaps Qt Tablet] 1 tab PO DAILY 12/02/16 [ History] Chlorzoxazone 500 mg PO TID #6 tablet 12/08/16 [Rx] Sennosides [Senna] 8.6 mg PO BID #14 tablet 12/08/16 [Rx] OxyCODONE/APAP 5/325 [Percocet 5/325 MG] 1 tab PO Q4HR PRN 12/17/16 [History] Allergies cephalexin [From Keflex] Allergy (Verified 12/05/16 03:02) Hives sulfamethoxazole [From Septra] Allergy (Verified 12/05/16 03:02) Hives trimethoprim [From Septra] Allergy (Verified 12/05/16 03:02) Hives NSAIDS (Non-Steroidal Anti-Inflamma Adverse Reaction (Verified 12/05/16 03:02) See Comments Risk for bleeding Review of Systems All systems PM: reviewed and no additional remarkable complaints except as stated (in the HPI) All systems PM: A 10-system review of systems was performed and is negative for pertinent findings except as documented above in the HPI. General Surgery Exam Initial Vital Signs Temp Pulse Resp BP Pulse Ox 98.2 F 72 20 123/55 96 12/17/16 11:28 12/17/16 11:28 12/17/16 11:28 12/17/16 11:28 12/17/16 11:28 - General physical appearance well developed, no distress, chronically ill, obese - Eyes normal ocular movement - ENT normal mucosa, atraumatic, normocephalic - Neck trachea midline - Respiratory normal respiratory effort, clear to auscultation - Cardiovascular Cardiovascular exam: Present: RRR - Abdomen Abdomen general surgery: Present: bowel sounds present, soft, non tender - Integumentary Integumentary general surgery: Present: warm and dry - Neurologic Present: CN 2-12 grossly intact - Musculoskeletal Present: other (severe deconditioning) - Psychiatric Psychiatric general surgery: Present: A&Ox3 Exam Initial Vital Signs Temp Pulse Resp BP Pulse Ox 98.2 F 72 20 123/55 96 12/17/16 11:28 12/17/16 11:28 12/17/16 11:28 12/17/16 11:28 12/17/16 11:28 Results - Labs 12/19/16 03:32 12/19/16 03:32 Abnormal lab results RBC 3.37 M/mcL (3.82-4.97) L 12/19/16 03:32 Hgb 9.2 g/dL (11.5-15.4) L 12/19/16 03:32 Hct 29.3 % (35.3-44.9) L 12/19/16 03:32 MCH 27.3 pg (28.0-33.3) L 12/19/16 03:32 MCHC 31.4 g/dL (31.6-35.5) L 12/19/16 03:32 RDW 14.6 % (11.5-14.5) H 12/19/16 03:32 BUN 28 mg/dL (7-20) H 12/19/16 03:32 BUN/Creatinine Ratio 34 (6-26) H 12/19/16 03:32 Glucose 120 mg/dL (70-99) H 12/19/16 03:32 POC Glucose 139 (58-89) H 12/19/16 10:52 C-Reactive Protein 12 mg/L (Less than 5) H 12/17/16 12:30 Albumin 2.9 g/dL (3.5-5.0) L 12/17/16 12:30 Globulin 4.3 g/dL (2.4-3.5) H 12/17/16 12:30 Albumin/Globulin Ratio 0.7 (1.1-2.2) L 12/17/16 12:30 Urine Clarity Cloudy (Clear) A 12/17/16 12:13 Ur Leukocyte Esterase Large (Negative) H 12/17/16 12:13 Urine Microscopic WBC 50-100 per hpf (0-3) H 12/17/16 12:13 Urine Bacteria Many per hpf (None-Few) H 12/17/16 12:13 Ur Culture Indicated? YES (NO) A 12/17/16 12:13 Stool Occult Blood Positive (Negative) A 12/17/16 12:30 Diabetes panel 12/19/16 Range/Units 03:32 Sodium 139 (136-145) mEq/L Potassium 4.5 (3.5-4.5) mEq/L Chloride 107 (98-109) mEq/L Carbon Dioxide 22 (19-29) mEq/L BUN 28 H (7-20) mg/dL Creatinine 0.82 (0.57-1.11) mg/dL Glucose 120 H (70-99) mg/dL Calcium 9.1 (8.6-10.8) mg/dL Calcium panel 12/19/16 Range/Units 03:32 Calcium 9.1 (8.6-10.8) mg/dL Phosphorus 4.2 (2.3-4.7) mg/dL Pituitary panel 12/19/16 Range/Units 03:32 Sodium 139 (136-145) mEq/L Potassium 4.5 (3.5-4.5) mEq/L Chloride 107 (98-109) mEq/L Carbon Dioxide 22 (19-29) mEq/L BUN 28 H (7-20) mg/dL Creatinine 0.82 (0.57-1.11) mg/dL Glucose 120 H (70-99) mg/dL Calcium 9.1 (8.6-10.8) mg/dL Adrenal panel 12/19/16 Range/Units 03:32 Sodium 139 (136-145) mEq/L Potassium 4.5 (3.5-4.5) mEq/L Chloride 107 (98-109) mEq/L Carbon Dioxide 22 (19-29) mEq/L BUN 28 H (7-20) mg/dL Creatinine 0.82 (0.57-1.11) mg/dL Glucose 120 H (70-99) mg/dL Calcium 9.1 (8.6-10.8) mg/dL All other labs normal. - Imaging Additional studies: Abdomen/Pelvis CT 12/17/16 12:13 IMPRESSION: 1. Large amount of stool within the rectosigmoid colon with rectal wall thickening. Findings could relate to stercoral colitis. Recommend disimpaction. 2. Colonic diverticulosis without evidence for acute diverticulitis. 3. Calcified uterine fibroids. D/ / 12/17/2016 13:07:52 Cedric Sinha MD / sameer Interpreting Provider: Cedric Sinha MD Consult Discharge Plan - Plan Referrals: Nica Pryor SIDE SHOW ENTERTAINER [Primary Care Provider] -
[2016-12-19] MEDS: Gabapentin 400 MG CAPSULE PO SCH ×2 (15:09→22:06)
[2016-12-20] MEDS: Insulin LISPRO 300 UNITS/3 ML VIAL SQ SCH ×2 (01:00→05:28)
[2016-12-20] MEDS: D5% in 0.9% NACL 1,000 ML IVC SCH (04:53)
[2016-12-20 05:56] LABS: Basophils % 0.4 %; Eosinophils # 0.2 K/mcL (0.0-0.6); Eosinophils % 3.3 %; Hematocrit 29.5 % (35.3-44.9); Hemoglobin 9.3 g/dL (11.5-15.4); Immature Granulocytes % 0.4 % (0-4); Lymphocytes # 1.5 K/mcL (0.6-4.6); Lymphocytes % 20.6 %; Mean Corpuscular HGB Conc 31.5 g/dL (31.6-35.5); Mean Corpuscular Hemoglobin 27.6 pg (28.0-33.3); Mean Corpuscular Volume 87.5 fL (83.0-100.0); Mean Platelet Volume 11.2 fL (9.4-12.4); Monocytes # 0.4 K/mcL (0.0-1.3); Monocytes % 5.6 %; Neutrophils # 5.1 K/mcL (1.6-8.9); Platelet Count 232 K/mcL (140-400); Red Blood Count 3.37 M/mcL (3.82-4.97); Red Cell Distribution Width 14.5 % (11.5-14.5); Segmented Neutrophils % 69.7 %
[2016-12-20 06:06] LABS: BUN/Creatinine Ratio 21 (6-26); Calcium 8.8 mg/dL (8.6-10.8); Carbon Dioxide 25 mEq/L (19-29); Chloride 107 mEq/L (98-109); Glucose 122 mg/dL (70-99); Magnesium 1.4 mg/dL (1.6-2.6); Osmolality,Calculated 288 (280-300); Phosphorous 2.7 mg/dL (2.3-4.7); Potassium 3.9 mEq/L (3.5-4.5); Sodium 138 mEq/L (136-145); eGFR For African Americans > 60 (> 60); eGFR For Non-African Americans > 60 (> 60)
[2016-12-20 06:13] LABS: Blood Urea Nitrogen 15 mg/dL (7-20)
[2016-12-20] MEDS: Lisinopril 20 MG TABLET PO SCH (08:16)
[2016-12-20] MEDS: Gabapentin 400 MG CAPSULE PO SCH (08:16)
[2016-12-20] MEDS: Nystatin POWDER 30 GM BOTTLE TP SCH (08:16)
[2016-12-20] MEDS: Sennosides 8.6 MG TABLET PO SCH (08:17)
[2016-12-20] MEDS: Silver Sulfadiazine 50 GM TUBE TP SCH (08:17)
[2016-12-20 08:32] VITALS: BP 175/75
[2016-12-20] MEDS ORDERED: Levofloxacin 750 MG/150 ML 750 MG/150 ML BAG IVPB SCH ×2 (09:00)
[2016-12-20] MEDS ORDERED: D5% in Water 1,000 ML IVC PRN (09:16)
--- NOTE | 2016-12-20 10:46 | Discharge Summary ---
Date of Encounter: 12/20/16 Time of Encounter: 10:42 - Discharge Diagnosis (1) Constipation Priority: Secondary Status: Acute Qualifiers: Constipation type: unspecified constipation type Qualified Code(s): K59.00 - Constipation, unspecified (2) UTI (urinary tract infection) Priority: Primary Status: Acute Qualifiers: Urinary tract infection type: site unspecified Hematuria presence: with hematuria Qualified Code(s): N39.0 - Urinary tract infection, site not specified; R31.9 - Hematuria, unspecified (3) DVT prophylaxis Priority: Secondary Status: Acute - Discharge Medications Prescriptions: Lactulose 20 gm PO HS 7 Days Levofloxacin [Levaquin] 500 mg PO DAILY #11 tablet OxyCODONE/APAP 5/325 [Percocet 5/325 MG] 1 tab PO Q4HR PRN #20 tablet PRN Reason: Pain Home Medications: Ascorbate Calcium [Vitamin C] 500 mg PO DAILY 10/08/16 [History] Gabapentin [Neurontin] 600 mg PO TID 10/08/16 [History] Levothyroxine [Synthroid] 100 mcg PO QAM 10/08/16 [History] Lysine [l-Lysine] 1,000 mg PO DAILY 10/08/16 [History] Metformin [Glucophage] 500 mg PO BID 10/08/16 [History] Nystatin POWDER [Nystop] 1 appl TP BID 10/08/16 [History] Silver Sulfadiazine Cream [Silvadene] 1 appl TP DAILY 10/08/16 [History] Docusate [Colace] 100 mg PO BID capsule 10/14/16 [Rx] Sucralfate [Carafate] 1 gm PO QIDAC #120 tablet 10/14/16 [Rx] Folic Acid/Vit Bcomp,C [Renal Vitamin Tablet] 0.8 mg PO DAILY 11/20/16 [History] Glucosamine Sulfate 1,000 mg PO DAILY 11/20/16 [History] Lisinopril [Zestril] 20 mg PO QAM #30 tablet 11/23/16 [Rx] Magnesium Oxide [Mag-Ox] 800 mg PO BID tablet 11/23/16 [Rx] Omeprazole 20 mg PO BID 12/02/16 [History] Vit B Cplx C No.13/Folic AC/D3 [Nephrocaps Qt Tablet] 1 tab PO DAILY 12/02/16 [ History] Chlorzoxazone 500 mg PO TID #6 tablet 12/08/16 [Rx] Sennosides [Senna] 8.6 mg PO BID #14 tablet 12/08/16 [Rx] Lactulose 20 gm PO HS 7 Days 12/20/16 [Rx] Levofloxacin [Levaquin] 500 mg PO DAILY #11 tablet 12/20/16 [Rx] OxyCODONE/APAP 5/325 [Percocet 5/325 MG] 1 tab PO Q4HR PRN #20 tablet 12/20/16 [ Rx] Allergies/Adverse Reactions: Allergies cephalexin [From Keflex] Allergy (Verified 12/05/16 03:02) Hives sulfamethoxazole [From Septra] Allergy (Verified 12/05/16 03:02) Hives trimethoprim [From Septra] Allergy (Verified 12/05/16 03:02) Hives NSAIDS (Non-Steroidal Anti-Inflamma Adverse Reaction (Verified 12/05/16 03:02) See Comments Risk for bleeding Date of admission: 12/17/16 18:57 Primary care physician: Nica Pryor CNP Discharging clinician: Elliott Garcia Anticipated date of discharge: 12/20/16 - Patient Status Disposition: Transfer SNF Condition: Fair Functional capacity at discharge: uses cane/walker Overall status at discharge: patient is back to baseline - Discharge Instructions Follow Up With: Nica Pryor CNP [Primary Care Provider] - - Diet and Activity Activity: as per physical therapy Diet: advance to your usual diet Interval History: As per HPI: Ms. Covarrubias is a 76 year old female with a past medical history of GI bleed, gastric perforation , abdominal wound, diabetes type 2 not insulin-dependent, hypertension was brought to the emergency department with constipation. Patient states that she has had a chronic history of constipation and was recently discharged roughly 2 weeks ago after treatment for similar condition. She states that her current constipation she will have liquidy stool but no significant amount. She feels bloated and has fullness in her lower abdomen. She will attempt to go to the bathroom without any success. She blames eating potentially old hard corn as the culprit of her current constipation problems. She denies any fevers, chills, nausea or vomiting or burning with urination or urinary discomfort. She said she takes the medications provided to her at the long-term which may include her recent bowel regimen prescribed to her at the time of discharge. She has had light blood per rectum which she says is due to an internal hemorrhoid. She denies any other medical complaints at this time. Hospital course: Ms. Covarrubias is a 76 year old female admitted due to severe constipation. The patient responded to medical management, she was seen and evaluated by surgical team for possibility of colostomy. However, surgical team did not recommend any invasive procedures at this time. The patient also has a UTI due to Klebsiella which is sensitive to Levaquin, will continue with the same. The patient was admitted from a SNF, will discharge her back to SNF. Will d/c ramon prior to discharge. D/W patient, D/W nursing staff. - Time Spent with Patient Total time spent providing and/or coordinating discharge services: Greater than 30 minutes - Constitutional Vitals: Temp Pulse Resp BP Pulse Ox 99 F 68 16 175/75 95 12/20/16 08:30 12/20/16 08:30 12/20/16 08:30 12/20/16 08:30 12/20/16 08:30 General appearance: Present: A&O X 3, no acute distress, answers questions appropriately - Head Head exam: Present: atraumatic, normocephalic - Eye Eye exam: Present: PERRL, conjuntiva pink, sclera anicteric Pupils: Present: PERRL - Neck Neck exam general surgery: Present: supple, trachea midline. Absent: lymphadenopathy - Respiratory Respiratory exam: Present: CTAB. Absent: accessory muscle use, rales, rhonchi, wheezes - Cardiovascular Cardiovascular exam: Present: RRR, +S1, +S2. Absent: diastolic murmur, gallop, rubs, systolic murmur - GI/Abdominal GI/Abdominal exam: Present: normal bowel sounds, soft, no peritoneal signs. Absent: distended, tenderness - Extremities Exam Extremities exam: Present: warm, radial pulses palpable and symetrical. Absent : calf tenderness, cyanotic, pedal edema - Neurological Exam Neurological exam: Present: CN II-XII intact, oriented X3, no focal deficits. Absent: pronater drift, facial droop, speech deficit - Skin Skin exam: Present: dry, intact
--- NOTE | 2016-12-20 10:51 | Physician Discharge Referral ---
ExtendedCare Referral Info Transfer To: Institutional Level of Care: Skilled - Diagnosis (1) Constipation Status: Acute (2) UTI (urinary tract infection) Status: Acute (3) DVT prophylaxis Status: Acute Prognosis: Fair Aware of Diagnosis: Patient Aware of Prognosis: Patient - Transfer Medications Prescriptions: Lactulose 20 gm PO HS 7 Days Levofloxacin [Levaquin] 500 mg PO DAILY #11 tablet OxyCODONE/APAP 5/325 [Percocet 5/325 MG] 1 tab PO Q4HR PRN #20 tablet PRN Reason: Pain Home Medications: Ascorbate Calcium [Vitamin C] 500 mg PO DAILY 10/08/16 [History] Gabapentin [Neurontin] 600 mg PO TID 10/08/16 [History] Levothyroxine [Synthroid] 100 mcg PO QAM 10/08/16 [History] Lysine [l-Lysine] 1,000 mg PO DAILY 10/08/16 [History] Metformin [Glucophage] 500 mg PO BID 10/08/16 [History] Nystatin POWDER [Nystop] 1 appl TP BID 10/08/16 [History] Silver Sulfadiazine Cream [Silvadene] 1 appl TP DAILY 10/08/16 [History] Docusate [Colace] 100 mg PO BID capsule 10/14/16 [Rx] Sucralfate [Carafate] 1 gm PO QIDAC #120 tablet 10/14/16 [Rx] Folic Acid/Vit Bcomp,C [Renal Vitamin Tablet] 0.8 mg PO DAILY 11/20/16 [History] Glucosamine Sulfate 1,000 mg PO DAILY 11/20/16 [History] Lisinopril [Zestril] 20 mg PO QAM #30 tablet 11/23/16 [Rx] Magnesium Oxide [Mag-Ox] 800 mg PO BID tablet 11/23/16 [Rx] Omeprazole 20 mg PO BID 12/02/16 [History] Vit B Cplx C No.13/Folic AC/D3 [Nephrocaps Qt Tablet] 1 tab PO DAILY 12/02/16 [ History] Chlorzoxazone 500 mg PO TID #6 tablet 12/08/16 [Rx] Sennosides [Senna] 8.6 mg PO BID #14 tablet 12/08/16 [Rx] Lactulose 20 gm PO HS 7 Days 12/20/16 [Rx] Levofloxacin [Levaquin] 500 mg PO DAILY #11 tablet 12/20/16 [Rx] OxyCODONE/APAP 5/325 [Percocet 5/325 MG] 1 tab PO Q4HR PRN #20 tablet 12/20/16 [ Rx] Allergies/Adverse Reactions: Allergies cephalexin [From Keflex] Allergy (Verified 12/05/16 03:02) Hives sulfamethoxazole [From Septra] Allergy (Verified 12/05/16 03:02) Hives trimethoprim [From Septra] Allergy (Verified 12/05/16 03:02) Hives NSAIDS (Non-Steroidal Anti-Inflamma Adverse Reaction (Verified 12/05/16 03:02) See Comments Risk for bleeding - Respiratory Orders Smoking Cessation: Smoking cessation has been advised. For more information, call the [employer] Tobacco Quit Line at 8-195-CODQ-NOW. - Ancillary Orders May use pressure relief devices daily prn, May go on HOLDEN w/family/respon alliance party w /meds at nurse discretion PRN, May consult with Dentist, Safety Physician, Tearoom Host/Hostess PRN - Advance Directives Code Status: Full Code - Mobility Orders Other (as per PT) - Rehabiliation Orders Rehab Potential: Fair Rehab Orders: ROM Exercises, Evaluation for Physical Therapy, Evaluation for Occupational Therapy - Treatments May check for fecal impaction rectally daily PRN - Diet Orders Cardiac CERTIFICATION: I certify that the transfer of the above named patient to an Extended Care Facility is necessary for the continuing treatment of the diagnosis listed. The above information is true and accurate reflection of patient's current condition. Confidential - Redisclosure prohibited without a patient's written consent.
[2016-12-20] MEDS ORDERED: Insulin LISPRO 300 UNITS/3 ML VIAL SQ SCH ×2 (11:30→21:00)
== END 2016-12-20 13:30 | DRG 389 ==
LOC: EMEROO 11:25 → 2ANU 11:25 → SUATTDRO 18:57
PROVIDERS: ADMIT Internal Medicine; ATTEND Internal Medicine